=== PATIENT | male | born 1955 | race Caucasian/White ===

== ENCOUNTER 2016-11-22 16:41 | Inpatient (IN) | payer BC, OTHER ==
[2016-11-22] MEDS ORDERED: Aspirin TAB* 325 MG PO ONE (17:15)
[2016-11-22 17:25] LABS: Hematocrit 47 % (42-52); Hemoglobin 15.6 g/dl (14.0-18.0); Mean Corpuscular HGB Conc 33 g/dl (31-36); Mean Corpuscular Hemoglobin 26 pg (27-31); Mean Corpuscular Volume 78 fL (80-94); Mean Platelet Volume 9 um3 (7.4-10.4); Red Blood Count 6.02 10^6/ul (4.0-5.4); Red Cell Distribution Width 14 % (10.5-15); White Blood Count 13.2 10^3/ul (3.5-10.8)
[2016-11-22 17:39] LABS: ALT 11 U/L (7-52); Albumin 3.7 g/dL (3.2-5.2); Alkaline Phosphatase 72 U/L (34-104); BUN/Creatinine Ratio 14.3 (8-20); Blood Urea Nitrogen 39 mg/dL (6-24); CO2 Carbon Dioxide 21 mmol/L (22-32); Calcium 9.5 mg/dL (8.6-10.3); Chloride 98 mmol/L (101-111); EGFR African American 30.7 (>60); EGFR Non-African American 23.9 (>60); Globulin 3.9 g/dL (2-4); Glucose 153 mg/dL (70-100); Sodium 132 mmol/L (133-145); Total Protein 7.6 g/dL (6.4-8.9)
[2016-11-22 17:51] LABS: Anion Gap 13 mmol/L (2-11); Troponin I 0.05 ng/mL (<0.04)
--- NOTE | 2016-11-22 17:52 | RAD ---
Indication: LEFT side weakness since yesterday. Comparison: Report of May 10, 2004. Technique: Upright AP 1735 hours Report: Large body habitus limits image quality. Grossly clear lungs and pleural spaces. Negative for pneumothorax. The heart, pulmonary vasculature, and mediastinal contours are unremarkable. IMPRESSION: No evidence for acute intrathoracic disease.
--- NOTE | 2016-11-22 18:18 | RAD ---
Indication: LEFT side weakness since yesterday. Diabetic. Comparison: No relevant prior exams available on the [facility] [place] PACS for comparison. Technique: Noncontrast CT vertex of skull through foramen magnum. Report: The sulci, ventricles, and basal cisterns are normal for age. Boss matter white matter differentiation is preserved without evidence for edema. No intra or extra axial hemorrhage, mass, or fluid collection detected. Unremarkable orbital contents. Unremarkable calvarium and skull base. Unremarkable scalp. The visualized paranasal sinuses and mastoid air spaces are clear. IMPRESSION: Negative for intracranial hemorrhage or CT stigmata of ischemic stroke. Negative unenhanced head CT.
[2016-11-22 18:23] LABS: Cholesterol 257 mg/dL; HDL Cholesterol 28.4 mg/dL; LDL Cholesterol 183 mg/dL; Triglycerides 229 mg/dL
--- NOTE | 2016-11-22 18:49 | ED ---
Wilfredo Montalvo SooYoung, scribed for Yaw Gold MD on 11/22/16 at 1702 . Neurological HPI - HPI Summary HPI Summary: A 61 y/o M presents to ED with c/o L-sided weakness with possible onset yesterday. Pt states he was able to get dressed OK yesterday, but had difficulty this AM. Denies slurred speech, TOVAR, visual changes. PMHx includes DM , low BP, chronic back pain. Pt is scheduled to see Dr. Garland on December 05. Pt does not take daily aspirin. He is R-hand dominant. - History of Current Complaint Chief Complaint: EDWeakness Stated Complaint: WEAKNESS ON LT SIDE Time Seen by Provider: 11/22/16 16:51 Hx Obtained From: Patient Onset/Duration: Started days ago - yesterday, Still Present Timing: Constant Onset Severity: Moderate Current Severity: Moderate Pain Intensity: 0 Pain Scale Used: 0-10 Numeric Character: Motor Weakness Associated Signs and Symptoms: Positive: Weakness, Nothing - neg: visual changes. Negative: Headache, Impaired Speech - Allergy/Home Medications Allergies/Adverse Reactions: Allergies Allergy/AdvReac Type Severity Reaction Status Date / Time Hydrocodone Allergy Nausea Verified 09/06/16 10:38 Gabapentin [From Neurontin] AdvReac Intermediate Nausea Verified 09/06/16 10:38 Home Medications: Home Medications Atenolol TAB* [Tenormin TAB* 50 MG] 50 mg PO DAILY 11/22/16 [History Confirmed 11/22/16] Clonidine HCl [Clonidine HCl 0.3 MG] 0.3 mg PO BEDTIME 11/22/16 [History Confirmed 11/22/16] Insulin GLARGINE(*) [Lantus(*)] 50 units SUBCUT DAILY 11/22/16 [History Confirmed 11/22/16] Lovastatin(NF) [Mevacor(NF)] 20 mg PO BEDTIME 11/22/16 [History Confirmed ] glipiZIDE TAB* [Glucotrol TAB*] 10 mg PO BID 11/22/16 [History Confirmed ] PMH/Surg Hx/FS Hx/Imm Hx Previously Healthy: No Endocrine/Hematology History: Reports: Hx Diabetes Cardiovascular History: Reports: Hx Cardiomegaly - ENLARGED HEART 2003, ON MEDS , Hx Hypercholesterolemia, Hx Hypertension Denies: Other Cardiovascular Problems/Disorders GI History: Denies: Other GI Disorders Musculoskeletal History: Reports: Hx Back Problems - chronic low back pain Sensory History: Reports: Hx Cataracts - RENE, Hx Contacts or Glasses - READING GLASSES Denies: Hx Hearing Aid Opthamlomology History: Reports: Hx Cataracts - RENE, Hx Contacts or Glasses - READING GLASSES Neurological History: Reports: Other Neuro Impairments/Disorders - PAIN CLINIC PT - Surgical History Hx Anesthesia Reactions: No Infectious Disease History: No Infectious Disease History: Denies: Traveled Outside the [place] in Last 30 Days - Family History Known Family History: Positive: Diabetes, Other - CA - Social History Occupation: Employed Part-time Lives: With Family Alcohol Use: None Hx Substance Use: No Substance Use Type: Reports: None Hx Tobacco Use: Yes Smoking Status (MU): Former Smoker Type: Cigarettes Have You Smoked in the Last Year: No Review of Systems Positive: Other - neg: visual changes Positive: Weakness - L-sided . Negative: Headache, Slurred Speech All Other Systems Reviewed And Are Negative: Yes Physical Exam - Summary Physical Exam Summary: The patient is well-nourished in no acute distress and in no acute pain. The skin is warm and dry and skin color reflects adequate perfusion. HEENT: The head is normocephalic and atraumatic. No facial droop. The pupils are equal and reactive. EOMI. The conjunctivae are clear and without drainage. Nares are patent and without drainage. Mouth reveals moist mucous membranes and the throat is without erythema and exudate. The tongue is midline. The external ears are intact. The ear canals are patent and without drainage. The tympanic membranes are intact. Neck is supple with full range of motion and non-tender. There are no carotid bruits. There is no neck vein distension. Respiratory: Chest is non-tender. Lungs are clear to auscultation and breath sounds are symmetrical and equal. Cardiovascular: Heart is regular rhythm and bradycardic. There is no murmur or rub auscultated. There is no peripheral edema and pulses are symmetrical and equal. Abdomen: The abdomen is obese, soft and non-tender. There are normal bowel sounds heard in all four quadrants and there is no organomegaly palpated. Musculoskeletal: There is no back pain noted. Extremities are non-tender with full range of motion. There is good capillary refill. There is no peripheral edema or calf tenderness elicited. Neurological: Patient is alert and oriented to person, place and time. Cranial nerves II - XII are intact. Babinski sign on L. LUE drifts, unable to do finger to nose. RUE does not drift and performed finger to nose. LLE: Greater drift compared to R, difficulty performing heel to langley. Speech mildly slurred. Psychiatric: The patient has an appropriate affect and does not exhibit any anxiety or depression. Triage Information Reviewed: Yes Vital Signs On Initial Exam: Initial Vitals Temp Pulse Resp BP Pulse Ox 98.0 F 43 18 159/98 98 11/22/16 16:43 11/22/16 16:43 11/22/16 16:43 11/22/16 16:43 11/22/16 16:43 Vital Signs Reviewed: Yes Diagnostics - Vital Signs Vital Signs Temp Pulse Resp BP Pulse Ox 11/22/16 16:47 97.8 F 54 20 159/98 95 11/22/16 16:43 98.0 F 43 18 159/98 98 - Laboratory Lab Results: Lab Results 11/22/16 11/22/16 11/22/16 Range/Units 17:11 17:15 17:15 WBC 13.2 H (3.5-10.8) 10^3/ul RBC 6.02 H (4.0-5.4) 10^6/ul Hgb 15.6 (14.0-18.0) g/dl Hct 47 (42-52) % MCV 78 L (80-94) fL MCH 26 L (27-31) pg MCHC 33 (31-36) g/dl RDW 14 (10.5-15) % Plt Count 244 (150-450) 10^3/ul MPV 9 (7.4-10.4) um3 Neut % (Auto) 73.1 (38-83) % Lymph % (Auto) 17.8 L (25-47) % Iron % (Auto) 7.8 (1-9) % Eos % (Auto) 0.4 (0-6) % Baso % (Auto) 0.9 (0-2) % Absolute Neuts (auto) 9.7 H (1.5-7.7) 10^3/ul Absolute Lymphs (auto) 2.4 (1.0-4.8) 10^3/ul Absolute Monos (auto) 1.0 H (0-0.8) 10^3/ul Absolute Eos (auto) 0.1 (0-0.6) 10^3/ul Absolute Basos (auto) 0.1 (0-0.2) 10^3/ul Absolute Nucleated RBC 0.01 10^3/ul Nucleated RBC % 0.1 INR (Anticoag Therapy) 1.10 (0.89-1.11) Sodium (133-145) mmol/L Potassium Chloride (101-111) mmol/L Carbon Dioxide (22-32) mmol/L Anion Gap (2-11) mmol/L BUN (6-24) mg/dL Creatinine (0.67-1.17) mg/dL Est GFR ( Amer) (>60) Est GFR (Non-Af Amer) (>60) BUN/Creatinine Ratio (8-20) Glucose (70-100) mg/dL POC Glucose (mg/dL) 143 H (74-106) mg/dL Lactic Acid (0.5-2.0) mmol/L Calcium (8.6-10.3) mg/dL Total Bilirubin (0.2-1.0) mg/dL AST ALT (7-52) U/L Alkaline Phosphatase (34-104) U/L Troponin I (<0.04) ng/mL Total Protein (6.4-8.9) g/dL Albumin (3.2-5.2) g/dL Globulin (2-4) g/dL Albumin/Globulin Ratio (1-3) Triglycerides mg/dL Cholesterol mg/dL LDL Cholesterol mg/dL HDL Cholesterol mg/dL 11/22/16 11/22/16 Range/Units 17:15 17:15 WBC (3.5-10.8) 10^3/ul RBC (4.0-5.4) 10^6/ul Hgb (14.0-18.0) g/dl Hct (42-52) % MCV (80-94) fL MCH (27-31) pg MCHC (31-36) g/dl RDW (10.5-15) % Plt Count (150-450) 10^3/ul MPV (7.4-10.4) um3 Neut % (Auto) (38-83) % Lymph % (Auto) (25-47) % Iron % (Auto) (1-9) % Eos % (Auto) (0-6) % Baso % (Auto) (0-2) % Absolute Neuts (auto) (1.5-7.7) 10^3/ul Absolute Lymphs (auto) (1.0-4.8) 10^3/ul Absolute Monos (auto) (0-0.8) 10^3/ul Absolute Eos (auto) (0-0.6) 10^3/ul Absolute Basos (auto) (0-0.2) 10^3/ul Absolute Nucleated RBC 10^3/ul Nucleated RBC % INR (Anticoag Therapy) (0.89-1.11) Sodium 132 L (133-145) mmol/L Potassium TNP Chloride 98 L (101-111) mmol/L Carbon Dioxide 21 L (22-32) mmol/L Anion Gap 13 H (2-11) mmol/L BUN 39 H (6-24) mg/dL Creatinine 2.72 H (0.67-1.17) mg/dL Est GFR ( Amer) 30.7 (>60) Est GFR (Non-Af Amer) 23.9 (>60) BUN/Creatinine Ratio 14.3 (8-20) Glucose 153 H (70-100) mg/dL POC Glucose (mg/dL) (74-106) mg/dL Lactic Acid 1.3 (0.5-2.0) mmol/L Calcium 9.5 (8.6-10.3) mg/dL Total Bilirubin 0.80 (0.2-1.0) mg/dL AST TNP ALT 11 (7-52) U/L Alkaline Phosphatase 72 (34-104) U/L Troponin I 0.05 H* (<0.04) ng/mL Total Protein 7.6 (6.4-8.9) g/dL Albumin 3.7 (3.2-5.2) g/dL Globulin 3.9 (2-4) g/dL Albumin/Globulin Ratio 0.9 L (1-3) Triglycerides 229 mg/dL Cholesterol 257 mg/dL LDL Cholesterol 183 mg/dL HDL Cholesterol 28.4 mg/dL Result Diagrams: 11/22/16 17:15 11/22/16 17:15 Lab Statement: Any lab studies that have been ordered have been reviewed, and results considered in the medical decision making process. - Radiology CXR Xray Interpretation: No Acute Changes - IMPRESSION: No evidence of acute intrathoracic dz Radiology Interpretation Completed By: Radiologist - CT BRAIN CT Interpretation: No Acute Changes - IMPRESSION: Negative for intracranial hemorrhage or CT stigmata of ischemic stroke. Negative unenhanced head CT. CT Interpretation Completed By: Radiologist - EKG 1 EKG Rhythm: Sinus Bradycardia ST Segment: Non-Specific - ST changes in V5 and V6 Ectopy: PVCs EKG Interpretation: T-wave inversions in V2, V3, V4 NIH Scale - NIH Scale Level of Consciousness: Alert/Keenly Responsive Ask Patient the Month and His/Her Age: Both Correct Ask Pt to Open/Close Eyes and Direct Sales Professional/Release Non-Paretic Hand: Both Correctly Best Gaze (Only Horizontal Eye Movement): Normal Visual Field Testing: No Visual Loss Facial Paresis-Pt to Smile & Close Eyes or Grimace Symmetry: Normal/Symmetrical Motor Function - Right Arm: No Drift-Holds 10 Seconds Motor Function - Left Arm: Drifts LT 10 seconds Motor Function - Right Leg: No Drift-Holds 10 Seconds Motor Function - Left Leg: Drifts LT 10 seconds Limb Ataxia-Must be out of Proportion to Weakness Present: Present in Two Limbs Sensory (Use Pinprick to Test Arms/Legs/Trunk/Face): Normal Best Language (Describe Picture, Name Items): Some Loss Dysarthria (Read Several Words): Slurs Some Words Extinction and Inattention: No Abnormality Total Score: 6 Re-Evaluation - Re-Evaluation 1 Re-Evaluation Time: 18:25 Change: Unchanged Comment: Discussing diagnostic results with pt. Suggesting admission, pt is agreeable. Course/Dx - Course Course Of Treatment: Pt is a 61 y/o M presenting with L-sided weakness with possible onset yesterday. Pt states he was able to get dressed OK yesterday, but had difficulty this AM. Denies slurred speech, TOVAR, visual changes. PMHx includes DM, low BP, chronic back pain. Pt is scheduled to see Dr. Garland on December 05. Pt does not take daily aspirin. He is R-hand dominant. Trop is 0.05. CXR shows no acute findings. Brain CT shows no acute findings. Discussed with Dr. Valle, recommends admission. Spoke to Dr. Simpson, hospitalist, will admit pt. - Differential Dx Differential Diagnoses Neuro: Positive: Cerebrovascular Accident, Hemorrhage, Hypertension, Transient Ischemic Attack, Other - renal failure, - Diagnoses Provider Diagnoses: Right-sided cerebrovascular accident (CVA), Renal failure, Bradycardia - Physician Notifications Discussed Care Of Patient With: Froylan Valle - neuro Time Discussed With Above Provider: 18:21 Instructed by Provider To: Other - recommends observation - Critical Care Time Critical Care Time: 30-74 min - 30 minutes Discharge - Discharge Plan Condition: Stable Disposition: ADMITTED TO [facility] Referrals: Shimon Zhong MD [Primary Care Provider] - Consult Consult: 1830: Dr. Simpson, hospitalist Will admit. The documentation as recorded by the Wilfredo jacobsen SooYoung accurately reflects the service I personally performed and the decisions made by me, Yaw Gold MD.
[2016-11-22] MEDS ORDERED: Dextrose 50% Syringe 50 ML* 25 GM/50 ML SYRINGE IV PUSH PRN (19:13)
--- NOTE | 2016-11-22 20:31 | RAD ---
INDICATION: TIA, LEFT-sided weakness. COMPARISON: No relevant prior exams available on the [facility] [place] PACS for comparison. TECHNIQUE: Bilateral carotid duplex scan. Stenosis estimations reflect velocity criteria that have been correlated to angiographic stenosis calculations based on distal internal carotid diameter. REPORT: RIGHT ICA: 64 cm/s peak systolic 19 cm/s end diastolic CCA: 77 cm/s peak systolic ICA/CCA peak systolic ratio: 0.83 The right common carotid artery and internal carotid artery are without evidence for significant atherosclerotic disease. Normal spectral wave forms are present throughout. Antegrade flow in the right vertebral artery. Increased peak systolic velocity at the RIGHT subclavian artery measuring 242 cm/s compared with 94 cm/s on the contralateral side suggesting a proximal subclavian stenosis. LEFT ICA: 57 cm/s peak systolic 19 cm/s end diastolic CCA: 60 cm/s peak systolic ICA/CCA peak systolic ratio: 0.96 The left common carotid artery and internal carotid artery are without evidence for significant atherosclerotic disease. Normal spectral wave forms are present throughout. Antegrade flow in the left vertebral artery. IMPRESSION: 1. No evidence for carotid stenosis. 2. Probable proximal RIGHT subclavian stenosis. Normal direction flow documented in the RIGHT vertebral artery without evidence for subclavian steal. CPT II Codes: 3100F
[2016-11-22] MEDS ORDERED: Atorvastatin* 10 MG TAB PO SCH (21:00)
[2016-11-22] MEDS ORDERED: cloNIDine TAB* 0.1 MG PO SCH (21:00)
[2016-11-22] MEDS ORDERED: NS 0.9% 1000 ML* 1,000 ML IV SCH (21:30)
--- NOTE | 2016-11-22 21:36 | RAD ---
Indication: LEFT side weakness which began yesterday. Comparison: Head CT of the same date. Technique: [employer] 1.5 Sameera [id number] with GEM suite. MRI brain without contrast. Report: 1.5 cm AP by 1.0 cm transverse region of restricted diffusion with corresponding decreased signal on ADC map within the RIGHT aspect of the midbrain and jermaine junction. Mild associated T2 hyperintensity and mass effect with enlargement compared with the contralateral side without effacement of the perimesencephalic cistern. Negative for additional foci of restricted diffusion. Susceptibility series is negative for stigmata of hemosiderin deposition to indicate previous hemorrhage. Unremarkable cerebral sulci, ventricles, and basal cisterns for age. Preserved major intracranial flow-voids. Unremarkable orbital contents. No suspicious calvarial or skull base lesion evident. IMPRESSION: The constellation of findings is most consistent with acute or subacute ischemic infarct involving the RIGHT aspect of the midbrain jermaine junction corresponding with blood supplied by pontine arteries from the basilar artery. Only mild mass effect without effacement of the surrounding basal cisterns. Results discussed with SALENA Noland 11/22/2016 9:31 PM EDT
[2016-11-22] MEDS: Insulin LISPRO* 1 UNITS UNIT SUBCUT SCH (22:52)
[2016-11-22] MEDS: Heparin VIAL(*) 5000 UNITS/ML VIAL (FIVE THOUSAND) SUBCUT SCH (23:07)
[2016-11-22] MEDS ORDERED: Atorvastatin* 80 MG TAB PO SCH (23:11)
[2016-11-23] MEDS: Heparin VIAL(*) 5000 UNITS/ML VIAL (FIVE THOUSAND) SUBCUT SCH ×3 (05:24→21:28)
[2016-11-23 07:15] LABS: BUN/Creatinine Ratio 15.5 (8-20); Calcium 8.9 mg/dL (8.6-10.3); EGFR African American 30.8 (>60); Potassium 2.8 mmol/L (3.5-5.0)
[2016-11-23 07:33] LABS: Troponin I 0.05 ng/mL (<0.04)
[2016-11-23] MEDS: Insulin LISPRO* 1 UNITS UNIT SUBCUT SCH ×4 (07:53→21:29)
--- NOTE | 2016-11-23 08:15 | HP ---
CC: Dr. Shimon Zhong; Primary Care Physician * HISTORY AND PHYSICAL: DATE OF ADMISSION: 11/22/16 CHIEF COMPLAINT: "I am weak." HISTORY OF PRESENT ILLNESS: The patient is a 61-year-old gentleman who came to the ER today after his son came home and found him weak and looking like he had a left facial droop. Apparently, the patient started feeling weak sometime during the day yesterday and became progressively worse today. He started feeling weak in his entire left side, especially his left arm and his left leg. His son thought he sounded drunk when he spoke to him, but he denies any trouble with word finding. He denies any visual disturbances. He does not feel any improvement since he arrived at the ER. He also admits that his diabetes is poorly controlled in general. He used to have the hemoglobin A1c of 14, now it has been 9.5 for some time now. PAST MEDICAL HISTORY: Significant for diabetes mellitus, type 2; chronic back pain; hypertension; hyperlipidemia; heart murmur as a child; questionable history of SC as the patient denies, but it is in his past medical history; chronic kidney disease. CURRENT MEDICATIONS: As follows: 1. Lovastatin 20 mg at bedtime. 2. Clonidine 0.3 mg at bedtime. 3. Hydrochlorothiazide 25 mg daily. 4. Atenolol 50 mg daily. 5. Glipizide 10 mg twice a day. 6. Lantus insulin 50 units subcu daily. ALLERGIES: He has allergy/adverse reactions to HYDROCODONE and GABAPENTIN. FAMILY HISTORY: Mother at 62 of cerebral aneurysm. Father at 59 of chronic kidney disease. SOCIAL HISTORY: He quit tobacco 20 or 30 years ago. No alcohol or recreational drug use. 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 He is . He has 2 children. His son, Cm Summers, is his healthcare proxy. REVIEW OF SYSTEMS: A 14-point review of systems was completed with the patient. All pertinent positives and negatives are in the history of present illness, otherwise it is negative. PHYSICAL EXAMINATION GENERAL: Pleasant gentleman, lying in bed, in no acute distress. VITAL SIGNS: Temperature 98.1 degrees, heart rate 67 beats per minute, respiratory rate 16 breaths per minute, pulse ox 97%, blood pressure 181/88. HEENT: Normocephalic, atraumatic. Pupils equal, round, and reactive to light. Moist mucous membranes. NECK: Supple. No JVD, bruits, palpable thyroid, or lymphadenopathy. CHEST: Clear to auscultation and percussion bilaterally. CARDIOVASCULAR: S1, S2 appreciated. Regular rate and rhythm. ABDOMEN: Positive bowel sounds in all 4 quadrants. Soft, nontender, nondistended. EXTREMITIES: No cyanosis, clubbing, or edema. +2 peripheral pulses bilaterally. NEURO: He is alert and oriented x3. He has got poor [id number] on the left side. He has got 3/5 motor strength on the left side, 5/5 on the right side. He has a slight left facial droop. He has got pronator drift on the left side. DIAGNOSTIC STUDIES: His EKG shows sinus bradycardia, 52 beats per minute, PVCs , normal axis, flipped T's throughout. Brain CT was interpreted by Radiology as negative for intracranial hemorrhage or CT stigmata of ischemic stroke, negative enhanced CT. Chest x-ray was interpreted by Radiology as no evidence for acute intrathoracic disease. Carotid Doppler shows no evidence for carotid stenosis, probably proximal right subclavian vein stenosis, normal direction of flow documented in the right vertebral artery without evidence for subclavian steal. Brain MRI: The constellation of findings most consistent with acute or subacute ischemic stroke involving the right aspect of the midbrain portion corresponding with blood supplied by the pontine arteries from basilar artery, only mid mass effect without effacement of surrounding basal cisterns. ASSESSMENT AND PLAN: 1. Cerebrovascular accident. The patient's physical exam, history, and now MRI are all consistent with cerebrovascular accident. The patient is on aspirin a day. Continue statin. Check lipid profile. Check hemoglobin A1c in the morning. We will leave systolic blood pressure greater than 180. Only treat if out of the case. Neurology to see in the a.m. Get PT, OT consult, swallow evaluation as well. 2. Hypertension. See above. We will keep blood pressure high for now with ischemic stroke. 3. Hyperlipidemia. See above. We will check lipid profile and continue statin. 4. Diabetes mellitus. As above. We will continue Lantus fingersticks with sliding scale and check hemoglobin A1c. 5. DVT prophylaxis. Heparin subcu. 6. FEN. N.p.o. and swallow study. 7. The patient is a full code. TIME SPENT: Over 80 minutes was spent on this H and P, more than 45 minutes of which was spent in direct [id number] contact with the patient in evaluation, physical exam, counseling, and coordination of care. [id number] #: [id number]
[2016-11-23] MEDS ORDERED: Atenolol TAB* 50 MG PO SCH (09:00)
[2016-11-23] MEDS ORDERED: Hydrochlorothiazide TAB* 25 MG PO SCH (09:00)
[2016-11-23] MEDS: Insulin GLARGINE(*) 1 UNITS UNIT SUBCUT SCH (09:39)
[2016-11-23] MEDS: Aspirin EC TAB* 325 MG PO SCH (09:40)
[2016-11-23] MEDS: KCL 20 MEQ/100 ML IVPREMIX* 20 MEQ/100 ML BAG IV SCH ×3 (09:40→15:58)
--- NOTE | 2016-11-23 09:55 | PN ---
Subjective Date of Service: 11/23/16 Interval History: Pt is feeling well. He states he is still feeling weak in the L UE. He states OT and speech have been in to see him already this AM. No SOB, CP or any other symptoms. Objective Active Medications: Aspirin (Ecotrin Ec Tab*) 325 mg PO DAILY [facility] Last Admin: 11/23/16 09:40 Dose: 325 mg Atorvastatin Calcium (Lipitor*) 80 mg PO BEDTIME [facility] Dextrose (D50w Syringe 50 Ml*) 12.5 gm IV PUSH .FOR FS < 60 - SS PRN PRN Reason: FS < 60 Heparin Sodium (Porcine) (Heparin Vial(*)) 5,000 units SUBCUT Q8HR [facility] Last Admin: 11/23/16 05:24 Dose: 5,000 units Potassium Chloride (Potassium Chloride 20 Meq/100 Ml Ivpremix*) 20 meq in 100 mls @ 50 mls/hr IV Q2H JOSEY Stop: 11/23/16 14:59 Last Admin: 11/23/16 09:40 Dose: 50 mls/hr Insulin Glargine (Lantus(*)) 50 units SUBCUT DAILY [facility] Last Admin: 11/23/16 09:39 Dose: 50 units Insulin Human Lispro (Humalog*) 0 units SUBCUT ACHS [facility] PRN Reason: Protocol Last Admin: 11/23/16 07:53 Dose: Not Given Vital Signs 11/22/16 11/22/16 11/22/16 20:00 21:45 23:40 Temperature 98.1 F 98.5 F Pulse Rate 42 67 48 Respiratory 16 20 Rate Blood Pressure 181/88 151/93 (mmHg) O2 Sat by Pulse 93 97 98 Oximetry 11/23/16 11/23/16 03:26 08:10 Temperature 97.5 F 98.4 F Pulse Rate 51 56 Respiratory 20 16 Rate Blood Pressure 177/92 184/103 (mmHg) O2 Sat by Pulse 96 97 Oximetry Oxygen Devices in Use Now: None Appearance: Middle aged male sitting up in bed, NAD Eyes: No Scleral Icterus Ears/Nose/Mouth/Throat: Mucous Membranes Moist Respiratory: Symmetrical Chest Expansion and Respiratory Effort, Clear to Auscultation Cardiovascular: NL Sounds; No Murmurs; No JVD, No Edema, - - bradycardic Abdominal: NL Sounds; No Tenderness; No Distention Extremities: No Clubbing, Cyanosis Skin: No Rash or Ulcers, No Nodules or Sclerosis Neurological: Alert and Oriented x 3, - - L UE roller hand 4/5, biceps 4/5, triceps 4-/ 5, L LE plantar/dorsiflexion 4/5 hip flexor 4-/5 Result Diagrams: 11/22/16 17:15 11/23/16 05:59 Additional Lab and Data: Lab Results 11/22/16 11/22/16 11/22/16 Range/Units 17:11 17:15 17:15 WBC 13.2 H (3.5-10.8) 10^3/ul RBC 6.02 H (4.0-5.4) 10^6/ul Hgb 15.6 (14.0-18.0) g/dl Hct 47 (42-52) % MCV 78 L (80-94) fL MCH 26 L (27-31) pg MCHC 33 (31-36) g/dl RDW 14 (10.5-15) % Plt Count 244 (150-450) 10^3/ul MPV 9 (7.4-10.4) um3 Neut % (Auto) 73.1 (38-83) % Lymph % (Auto) 17.8 L (25-47) % Cedar % (Auto) 7.8 (1-9) % Eos % (Auto) 0.4 (0-6) % Baso % (Auto) 0.9 (0-2) % Absolute Neuts (auto) 9.7 H (1.5-7.7) 10^3/ul Absolute Lymphs (auto) 2.4 (1.0-4.8) 10^3/ul Absolute Monos (auto) 1.0 H (0-0.8) 10^3/ul Absolute Eos (auto) 0.1 (0-0.6) 10^3/ul Absolute Basos (auto) 0.1 (0-0.2) 10^3/ul Absolute Nucleated RBC 0.01 10^3/ul Nucleated RBC % 0.1 INR (Anticoag Therapy) 1.10 (0.89-1.11) Sodium (133-145) mmol/L Potassium Chloride (101-111) mmol/L Carbon Dioxide (22-32) mmol/L Anion Gap (2-11) mmol/L BUN (6-24) mg/dL Creatinine (0.67-1.17) mg/dL Est GFR ( Amer) (>60) Est GFR (Non-Af Amer) (>60) BUN/Creatinine Ratio (8-20) Glucose (70-100) mg/dL POC Glucose (mg/dL) 143 H (74-106) mg/dL Lactic Acid (0.5-2.0) mmol/L Calcium (8.6-10.3) mg/dL Total Bilirubin (0.2-1.0) mg/dL AST ALT (7-52) U/L Alkaline Phosphatase (34-104) U/L Troponin I (<0.04) ng/mL Total Protein (6.4-8.9) g/dL Albumin (3.2-5.2) g/dL Globulin (2-4) g/dL Albumin/Globulin Ratio (1-3) Triglycerides mg/dL Cholesterol mg/dL LDL Cholesterol mg/dL HDL Cholesterol mg/dL 11/22/16 11/22/16 Range/Units 17:15 17:15 WBC (3.5-10.8) 10^3/ul RBC (4.0-5.4) 10^6/ul Hgb (14.0-18.0) g/dl Hct (42-52) % MCV (80-94) fL MCH (27-31) pg MCHC (31-36) g/dl RDW (10.5-15) % Plt Count (150-450) 10^3/ul MPV (7.4-10.4) um3 Neut % (Auto) (38-83) % Lymph % (Auto) (25-47) % Cedar % (Auto) (1-9) % Eos % (Auto) (0-6) % Baso % (Auto) (0-2) % Absolute Neuts (auto) (1.5-7.7) 10^3/ul Absolute Lymphs (auto) (1.0-4.8) 10^3/ul Absolute Monos (auto) (0-0.8) 10^3/ul Absolute Eos (auto) (0-0.6) 10^3/ul Absolute Basos (auto) (0-0.2) 10^3/ul Absolute Nucleated RBC 10^3/ul Nucleated RBC % INR (Anticoag Therapy) (0.89-1.11) Sodium 132 L (133-145) mmol/L Potassium TNP Chloride 98 L (101-111) mmol/L Carbon Dioxide 21 L (22-32) mmol/L Anion Gap 13 H (2-11) mmol/L BUN 39 H (6-24) mg/dL Creatinine 2.72 H (0.67-1.17) mg/dL Est GFR ( Amer) 30.7 (>60) Est GFR (Non-Af Amer) 23.9 (>60) BUN/Creatinine Ratio 14.3 (8-20) Glucose 153 H (70-100) mg/dL POC Glucose (mg/dL) (74-106) mg/dL Lactic Acid 1.3 (0.5-2.0) mmol/L Calcium 9.5 (8.6-10.3) mg/dL Total Bilirubin 0.80 (0.2-1.0) mg/dL AST TNP ALT 11 (7-52) U/L Alkaline Phosphatase 72 (34-104) U/L Troponin I 0.05 H* (<0.04) ng/mL Total Protein 7.6 (6.4-8.9) g/dL Albumin 3.7 (3.2-5.2) g/dL Globulin 3.9 (2-4) g/dL Albumin/Globulin Ratio 0.9 L (1-3) Triglycerides 229 mg/dL Cholesterol 257 mg/dL LDL Cholesterol 183 mg/dL HDL Cholesterol 28.4 mg/dL Assess/Plan/Problems-Billing Mr Summers is a 61 yo M who has a h/o hyperlipidemia, uncontrolled type II DM , HTN and CKD who presented to the ER with c/o L UE/LE weakness and L facial droop. - Patient Problems (1) Right pontine CVA Current Visit: Yes Status: Acute Code(s): I63.50 - CEREB INFRC DUE TO UNSP OCCLS OR STENOS OF UNSP CEREB ARTERY SNOMED Code(s): 903164121 Comment: The patient was found to have an acute to subacute midbrain jermaine junction CVA. He reports some improvement in symptoms but still has deficits. OT has seen the patient-await report. PT to see pt. Speech has recommended nectar thick liquids. Continue lipitor 80mg qHS and add zetia 10mg daily. Continue ASA 325mg daily (does not appear he was on prior to admission). Neurology consult pending for today. Monitor on tele for evidence of afib. (2) Type II diabetes mellitus Current Visit: Yes Status: Acute Comment: A1c is pending but historically he has had very poor control of his DM. Continue lantus 50 units SQ daily and hold glipizide for now. (3) HLD (hyperlipidemia) Current Visit: Yes Status: Acute Code(s): E78.5 - HYPERLIPIDEMIA, UNSPECIFIED SNOMED Code(s): 43894252 Comment: As above, continue lipitor and add zetia. (4) HTN (hypertension) Current Visit: Yes Status: Acute Code(s): I10 - ESSENTIAL (PRIMARY) HYPERTENSION SNOMED Code(s): 32255502 Comment: Allowing for permissive HTN in the setting of acute CVA. Hold home meds for now but resume if SBP >210 or DBP >110. (5) DVT prophylaxis Current Visit: Yes Status: Acute Code(s): PGC3909 - SNOMED Code(s): 150470016 Comment: SQ heparin (6) Full code status Current Visit: Yes Status: Acute Code(s): Z78.9 - OTHER SPECIFIED HEALTH STATUS SNOMED Code(s): 433519756
[2016-11-23] MEDS: Hydrochlorothiazide TAB* 25 MG PO SCH (13:06)
[2016-11-23] MEDS ORDERED: Perflutren Lipid Microsphere* 3 ML VIAL ONE (14:47)
[2016-11-23 16:04] LABS: Urine Bacteria Absent (Absent); Urine Bilirubin Negative (Negative); Urine Glucose 2+(150 mg/dL) (Negative); Urine Nitrite Negative (Negative)
--- NOTE | 2016-11-23 16:21 | ECHO ---
Amended Report Patient: YAMIL LE [facility] Rec#: [id number] : 1955 Date: 11/23/2016 Age: 61y Height: 165.1 cm / 65.0 in Weight: 108.86 kg / 239.9 lbs Sex: M BSA: 2.14 Room#: [facility] Admit Date#: 11/23/2016 Type: Inpatient Referring: Caroline Rashid DO Reading: Bryant Winter MD Behavioral Health Case Manager: Giselle Candelaria,RAYMONDCS,RDMS CC: Shimon Zhong MD Transthoracic Echocardiogram Indication: CVA, TIA BP: 214/74 HR: 52 Rhythm: Bradycardia Findings History: DM, HTN, HLD, old [place], former smoker Technical Comments: The study is technically limited due to poor acoustic windows. Completed 1530 Left Ventricle: The left ventricular chamber size is normal. Moderate concentric left ventricular hypertrophy is observed. There is increased basal septal hypertrophy noted without evidence of an increased gradient across the left ventricular outflow tract. The sigmoid septum measures up to 2 cm. The estimated ejection fraction is 55-60%. Abnormal left ventricular diastolic filling is observed, consistent with impaired relaxation. Left Atrium: The left atrium is moderately dilated. Right Ventricle: The right ventricular chamber size and systolic function are within normal limits. The right ventricle wall thickness is mildly increased. Right Atrium: The right atrium is not well visualized. Aortic Valve: The aortic valve leaflets are mildly thickened. There is aortic annular calcification. There is no evidence of aortic regurgitation. There is no evidence of aortic stenosis. Mitral Valve: There is mitral annular calcification. The mitral valve leaflets are mildly thickened. There is no evidence of mitral regurgitation. There is no evidence of mitral stenosis. Tricuspid Valve: The tricuspid valve leaflets are normal. There is trace tricuspid regurgitation. Unable to estimate the right ventricular systolic pressure. Pulmonic Valve: There is no evidence of pulmonic valve thickening. There is a trace pulmonic regurgitation. Pericardium: There is no significant pericardial effusion. Aorta: There is mild dilatation of the ascending aorta. The aortic arch is not well visualized. There is no dilation of the aortic root. Pulmonary Artery: The main pulmonary artery is not well visualized. Venous: The inferior vena cava is not visualized. Contrast: Definity was used to optimize study. A total of 3 ml was used Conclusions The study is technically limited due to poor acoustic windows. Moderate concentric left ventricular hypertrophy is observed. There is increased basal septal hypertrophy noted without evidence of an increased gradient across the left ventricular outflow tract. The sigmoid septum measures up to 2 cm. The estimated ejection fraction is 55-60%. Abnormal left ventricular diastolic filling is observed, consistent with impaired relaxation. The left atrium is moderately dilated. The right ventricle wall thickness is mildly increased. There is mild dilatation of the ascending aorta. Contrast enhancement used during the study. The LVH has progressed from mild in 2003. Consider a transesophageal echocardiogram if there is a high index of suspicion for a cardiac source of embolism. Measurements Name Value Normal Range RVIDd (AP) 2D 2.4 cm (0.9 - 2.6) IVSd (2D) 2 cm (0.6 - 1) LVPWd (2D) 1.5 cm (0.6 - 1) LVIDd (2D) 4.1 cm (3.6 - 5.4) LVIDs (2D) 2.7 cm - LV FS (2D) 33 % (25 - 45) Aortic Annulus 2.4 cm (1.4 - 2.6) Ao root diameter (2D) 3.2 cm (2.1 - 3.5) Ascending Ao 3.6 cm (2.1 - 3.4) LAd ISD 4CH 6.4 cm (2.9 - 5.3) LA ISD 4CH W 5.1 cm (2.5 - 4.5) Name Value Normal Range LA ESV SP 4CH (A/L) 94.95 ml - LA ESV SP 2CH (A/L) 58.78 ml - LA ESV BP (A/L) 84.36 ml - LA ESV BP (A/L) index 39 ml/m2 - LA ESV SP 4CH (MOD) 91.09 ml - LA ESV SP 2CH (MOD) 57 ml - Name Value Normal Range MV E-wave Vmax 0.5 m/sec - MV deceleration time 163 msec - MV A-wave Vmax 0.8 m/sec - MV E:A ratio 0.6 ratio - LV septal e' Vmax 0.04 m/sec - LV lateral e' Vmax 0.02 m/sec - LV E:e' septal ratio 12.5 ratio - LV E:e' lateral ratio 25 ratio - Name Value Normal Range AV Vmax 1.6 m/sec - AV VTI 35 cm - AV peak gradient 10 mmHg - AV mean gradient 5.8 mmHg - LVOT Vmax 1 m/sec - LVOT VTI 26.2 cm - LVOT peak gradient 4 mmHg - LVOT mean gradient 2.5 mmHg - ASHELY Vmax 0.9 m/sec - Name Value Normal Range RAP 8 mmHg - Name Value Normal Range PV Vmax 1 m/sec - PV peak gradient 4.3 mmHg -
--- NOTE | 2016-11-23 18:10 | RAD ---
Indication: Ischemic stroke at the RIGHT midbrain jermaine junction documented on November 22, 2016. Weakness, LEFT facial droop, LEFT-sided numbness. Comparison: November 22, 2016 MRI brain. Technique: [place] 1.5 Sameera [id number] with GEM suite. MR angiography 3-D [id number] data was obtained with rotational display of the [place] and posterior fossa arteries. Report: Mild LEFT vertebral artery dominance with both vertebral arteries contributing to the basilar artery. Negative for occlusion or appreciable stenosis at the basilar artery. No suspicious finding at the faintly partially visualized cerebellar artery origins. Patent bilateral posterior cerebral arteries are supplied primarily by the posterior circulation with normal variant hypoplastic bilaterally posterior communicating arteries. Unremarkable RIGHT intracranial carotid artery as well as the RIGHT M1 and M2 middle cerebral artery segments and the RIGHT A1 and A2 anterior cerebral artery segments. There is decreased flow at the cephalad portion of the LEFT carotid siphon and supraclinoid intracranial internal carotid artery as well as the M1 segment of the LEFT middle cerebral artery. Unremarkable M2 segments of the LEFT middle cerebral artery. Flow documented in the diminutive diameter 81 segment of the LEFT anterior cerebral artery. Unremarkable LEFT A2 segment. No intracranial aneurysms evident. IMPRESSION: 1. Negative for occlusion or appreciable stenosis at the basilar artery. 2. The constellation of findings is concerning for hemodynamic significant stenosis at the cephalad portion of the LEFT carotid siphon through the M1 segment of the LEFT middle cerebral artery and A1 segment of the anterior cerebral artery. Short segment hemodynamic significant stenosis at the LEFT carotid siphon or longer segment stenosis should be considered. Consider CT angiogram for further assessment if clinically feasible.
[2016-11-23] MEDS: Clopidogrel TAB* 75 MG PO SCH (18:37)
--- NOTE | 2016-11-23 20:06 | CONS ---
CONSULTATION REPORT: DATE OF CONSULT: 11/23/16 PATIENT OF: Dr. Rashid. HISTORY OF PRESENT ILLNESS: This is a 61-year-old man who presented yesterday with a history that began the day before, of left facial droop, left arm and leg weakness with some slurred speech, but no aphasia. There is no visual disturbance, no headache. He is somewhat better today, but still weak on the left side. He has had no prior stroke. PAST MEDICAL HISTORY: Significant for hypertension, poorly controlled type 2 diabetes, hyperlipidemia, possible history of [place] in the past, and chronic kidney disease. He has also had chronic back pain. MEDICINES AT HOME: Include: 1. Lovastatin 20 mg daily. 2. Clonidine 0.3 daily. 3. Hydrochlorothiazide 25 mg daily. 4. Atenolol 50 daily. 5. Glipizide 10 mg twice a day. 6. Lantus insulin 50 units subcu daily. ALLERGIES: He is allergic to HYDROCODONE and GABAPENTIN. FAMILY HISTORY: His mother at 62 of cerebral aneurysm. Father at 59 of chronic kidney disease. SOCIAL HISTORY: He quit smoking 20 to 30 years ago. He does not drink or use drugs. 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 He is and has 2 children. REVIEW OF SYSTEMS: Negative in all 14 spheres other than the HPI, except he is a heavy snorer. PHYSICAL EXAMINATION: On exam, temperature 98.6, pulse 54, respiratory rate 18 , blood pressure 214/74. He is alert and oriented with normal speech and comprehension. Cranial nerves II through XII were intact, other than slight left facial weakness. Fundi showed sharp discs. Motor exam revealed normal tone and strength on the right side. On the left side, strength was 4/5 in arm and leg with a pronator drift and fine motor was decreased in the left side. He had decreased sensation to touch in his feet compared to knees as well as vibratory loss there. Reflexes were 1. Chest: Clear. Cardiovascular: Regular rate and rhythm. Abdomen is soft with positive bowel sounds. He was obese. DIAGNOSTIC STUDIES: I reviewed his MRI scan, which showed a right pontine acute /subacute stroke. His carotid Doppler showed no carotid stenosis, probable proximal right subclavian stenosis with normal flow direction in the right vertebral artery without evidence of subclavian steal. He has no history of atrial fibrillation. He had some sinus bradycardia. LABORATORY DATA: Includes CMP showing potassium 2.8, BUN today was 42, creatinine 2.7 essentially the same as yesterday. His glucose is , it had been 153. His hemoglobin A1c was 9.3. Troponin 0.05. Normal liver function tests. His LDL was 163, triglycerides were 220. INR 1.1. White count 13.2, hematocrit 47, platelets 244,000. IMPRESSION: Discussed with Mr. Summers that he has had a right pontine stroke and that was the explanation of his symptoms. He has multiple risk factors including his diabetes, hypertension, hyperlipidemia and I emphasized dietary improvement and weight loss impact many of these symptoms. He also needs a sleep study to rule out sleep apnea, which could also contribute to his risk of further cardiovascular disease and stroke. He should be on an antiplatelet therapy and aspirin 325 mg daily as appropriate. He has been put on Lipitor 80 mg and that is appropriate for his quite high LDL. We will be getting an MRA of head and neck without contrast given his kidney disease and this will help assess his basilar artery. There would be no intervention needed at this point given that his symptoms have been there for a couple of days, but if he has significant basilar stenosis, it would be good to know depending on what his symptoms are in the future and how we would treat him. I have also discussed with him at length that if he has further stroke-like symptoms, he needs to come to the ER as an acute emergency with time being a critical factor. Thank you for sharing his case. [id number]/[facility] #: [id number] TIFFANI
[2016-11-24] MEDS: Heparin VIAL(*) 5000 UNITS/ML VIAL (FIVE THOUSAND) SUBCUT SCH ×2 (06:05→13:16)
[2016-11-24] MEDS: Insulin LISPRO* 1 UNITS UNIT SUBCUT SCH ×2 (07:59→12:09)
[2016-11-24] MEDS: Clopidogrel TAB* 75 MG PO SCH (08:55)
[2016-11-24] MEDS: Aspirin EC TAB* 325 MG PO SCH (08:55)
[2016-11-24] MEDS: Insulin GLARGINE(*) 1 UNITS UNIT SUBCUT SCH (08:55)
[2016-11-24] MEDS ORDERED: Pneumococcal Vac Polyvalent* 0.5 ML VIAL IM ONE (09:00)
[2016-11-24] MEDS: Hydrochlorothiazide TAB* 25 MG PO SCH (09:12)
--- NOTE | 2016-11-24 11:02 | PN ---
Progress Note - Progress Note Date of Service: 11/24/16 SOAP: Neurology progress note Date of service: 11/24/16 Subjective: No acute events overnight. The patient still feels weak on the left side, stable with no improvement or worsening. Objective: Vital Signs Temp Pulse Resp BP Pulse Ox 98.2 F 40 18 168/76 98 11/24/16 07:40 11/24/16 07:40 11/24/16 08:00 11/24/16 08:54 11/24/16 07:40 Current Medications Aspirin (Ecotrin Ec Tab*) 325 mg PO DAILY [facility] Last Admin: 11/24/16 08:55 Dose: 325 mg Atorvastatin Calcium (Lipitor*) 80 mg PO BEDTIME JOSEY Last Admin: 11/23/16 21:29 Dose: 80 mg Clopidogrel Bisulfate (Plavix Tab*) 75 mg PO DAILY [facility] Last Admin: 11/24/16 08:55 Dose: 75 mg Dextrose (D50w Syringe 50 Ml*) 12.5 gm IV PUSH .FOR FS < 60 - SS PRN PRN Reason: FS < 60 Heparin Sodium (Porcine) (Heparin Vial(*)) 5,000 units SUBCUT Q8HR [facility] Last Admin: 11/24/16 06:05 Dose: 5,000 units Hydrochlorothiazide (Hydrodiuril Tab*) 25 mg PO DAILY [facility] Last Admin: 11/24/16 09:12 Dose: 25 mg Insulin Glargine (Lantus(*)) 50 units SUBCUT DAILY [facility] Last Admin: 11/24/16 08:55 Dose: 50 units Insulin Human Lispro (Humalog*) 0 units SUBCUT ACHS [facility] PRN Reason: Protocol Last Admin: 11/24/16 07:59 Dose: 3 units 11/22/16 11/22/16 11/22/16 17:11 17:15 17:15 WBC 13.2 H RBC 6.02 H Hgb 15.6 Hct 47 MCV 78 L MCH 26 L MCHC 33 RDW 14 Plt Count 244 MPV 9 Neut % (Auto) 73.1 Lymph % (Auto) 17.8 L Luna % (Auto) 7.8 Eos % (Auto) 0.4 Baso % (Auto) 0.9 Absolute Neuts (auto) 9.7 H Absolute Lymphs (auto) 2.4 Absolute Monos (auto) 1.0 H Absolute Eos (auto) 0.1 Absolute Basos (auto) 0.1 Absolute Nucleated RBC 0.01 Nucleated RBC % 0.1 INR (Anticoag Therapy) 1.10 Sodium Potassium Chloride Carbon Dioxide Anion Gap BUN Creatinine Est GFR ( Amer) Est GFR (Non-Af Amer) BUN/Creatinine Ratio Glucose POC Glucose (mg/dL) 143 H Hemoglobin A1c Lactic Acid Calcium Total Bilirubin AST ALT Alkaline Phosphatase Troponin I Total Protein Albumin Globulin Albumin/Globulin Ratio Triglycerides Cholesterol LDL Cholesterol HDL Cholesterol Urine Color Urine Appearance Urine pH Ur Specific [place] Urine Protein Urine Ketones Urine Blood Urine Nitrate Urine Bilirubin Urine Urobilinogen Ur Leukocyte Esterase Urine WBC (Auto) Urine RBC (Auto) Ur Squamous Epith Cells Urine Bacteria Hyaline Casts Urine Glucose 11/22/16 11/22/16 11/22/16 17:15 17:15 22:42 WBC RBC Hgb Hct MCV MCH MCHC RDW Plt Count MPV Neut % (Auto) Lymph % (Auto) Luna % (Auto) Eos % (Auto) Baso % (Auto) Absolute Neuts (auto) Absolute Lymphs (auto) Absolute Monos (auto) Absolute Eos (auto) Absolute Basos (auto) Absolute Nucleated RBC Nucleated RBC % INR (Anticoag Therapy) Sodium 132 L Potassium TNP Chloride 98 L Carbon Dioxide 21 L Anion Gap 13 H BUN 39 H Creatinine 2.72 H Est GFR ( Amer) 30.7 Est GFR (Non-Af Amer) 23.9 BUN/Creatinine Ratio 14.3 Glucose 153 H POC Glucose (mg/dL) 79 Hemoglobin A1c Lactic Acid 1.3 Calcium 9.5 Total Bilirubin 0.80 AST TNP ALT 11 Alkaline Phosphatase 72 Troponin I 0.05 H* Total Protein 7.6 Albumin 3.7 Globulin 3.9 Albumin/Globulin Ratio 0.9 L Triglycerides 229 Cholesterol 257 LDL Cholesterol 183 HDL Cholesterol 28.4 Urine Color Urine Appearance Urine pH Ur Specific [place] Urine Protein Urine Ketones Urine Blood Urine Nitrate Urine Bilirubin Urine Urobilinogen Ur Leukocyte Esterase Urine WBC (Auto) Urine RBC (Auto) Ur Squamous Epith Cells Urine Bacteria Hyaline Casts Urine Glucose 11/23/16 11/23/16 11/23/16 05:59 05:59 07:53 WBC RBC Hgb Hct MCV MCH MCHC RDW Plt Count MPV Neut % (Auto) Lymph % (Auto) Luna % (Auto) Eos % (Auto) Baso % (Auto) Absolute Neuts (auto) Absolute Lymphs (auto) Absolute Monos (auto) Absolute Eos (auto) Absolute Basos (auto) Absolute Nucleated RBC Nucleated RBC % INR (Anticoag Therapy) Sodium 137 Potassium 2.8 L Chloride 101 Carbon Dioxide 23 Anion Gap 13 H BUN 42 H Creatinine 2.71 H Est GFR ( Amer) 30.8 Est GFR (Non-Af Amer) 24.0 BUN/Creatinine Ratio 15.5 Glucose 70 POC Glucose (mg/dL) 81 Hemoglobin A1c 9.3 H Lactic Acid Calcium 8.9 Total Bilirubin AST ALT Alkaline Phosphatase Troponin I 0.05 H* Total Protein Albumin Globulin Albumin/Globulin Ratio Triglycerides 220 Cholesterol 230 LDL Cholesterol 163 HDL Cholesterol 23.0 Urine Color Urine Appearance Urine pH Ur Specific [place] Urine Protein Urine Ketones Urine Blood Urine Nitrate Urine Bilirubin Urine Urobilinogen Ur Leukocyte Esterase Urine WBC (Auto) Urine RBC (Auto) Ur Squamous Epith Cells Urine Bacteria Hyaline Casts Urine Glucose 11/23/16 11/23/16 11/23/16 11:58 15:49 16:25 WBC RBC Hgb Hct MCV MCH MCHC RDW Plt Count MPV Neut % (Auto) Lymph % (Auto) Luna % (Auto) Eos % (Auto) Baso % (Auto) Absolute Neuts (auto) Absolute Lymphs (auto) Absolute Monos (auto) Absolute Eos (auto) Absolute Basos (auto) Absolute Nucleated RBC Nucleated RBC % INR (Anticoag Therapy) Sodium Potassium Chloride Carbon Dioxide Anion Gap BUN Creatinine Est GFR ( Amer) Est GFR (Non-Af Amer) BUN/Creatinine Ratio Glucose POC Glucose (mg/dL) 236 H 212 H Hemoglobin A1c Lactic Acid Calcium Total Bilirubin AST ALT Alkaline Phosphatase Troponin I Total Protein Albumin Globulin Albumin/Globulin Ratio Triglycerides Cholesterol LDL Cholesterol HDL Cholesterol Urine Color Yellow Urine Appearance Clear Urine pH 5.0 Ur Specific [place] 1.019 Urine Protein 3+(>=500 mg/dl) H Urine Ketones Trace H Urine Blood 1+ H Urine Nitrate Negative Urine Bilirubin Negative Urine Urobilinogen Negative Ur Leukocyte Esterase Negative Urine WBC (Auto) Trace(0-5/hpf) Urine RBC (Auto) 1+(3-5/hpf) H Ur Squamous Epith Cells Present H Urine Bacteria Absent Hyaline Casts Present H Urine Glucose 2+(150 mg/dl) H 11/23/16 11/24/16 20:21 06:33 WBC RBC Hgb Hct MCV MCH MCHC RDW Plt Count MPV Neut % (Auto) Lymph % (Auto) Luna % (Auto) Eos % (Auto) Baso % (Auto) Absolute Neuts (auto) Absolute Lymphs (auto) Absolute Monos (auto) Absolute Eos (auto) Absolute Basos (auto) Absolute Nucleated RBC Nucleated RBC % INR (Anticoag Therapy) Sodium Potassium Chloride Carbon Dioxide Anion Gap BUN Creatinine Est GFR ( Amer) Est GFR (Non-Af Amer) BUN/Creatinine Ratio Glucose POC Glucose (mg/dL) 198 H 176 H Hemoglobin A1c Lactic Acid Calcium Total Bilirubin AST ALT Alkaline Phosphatase Troponin I Total Protein Albumin Globulin Albumin/Globulin Ratio Triglycerides Cholesterol LDL Cholesterol HDL Cholesterol Urine Color Urine Appearance Urine pH Ur Specific [place] Urine Protein Urine Ketones Urine Blood Urine Nitrate Urine Bilirubin Urine Urobilinogen Ur Leukocyte Esterase Urine WBC (Auto) Urine RBC (Auto) Ur Squamous Epith Cells Urine Bacteria Hyaline Casts Urine Glucose On exam, awake, alert, oriented x3. Speech fluent with subtle dysarthria, completely intelligible. Pupils symmetric and reactive. Face symmetric, I did not notice any asymmetry. Tongue midline. V1-3 intact to light touch and pinprick. Palate elevates upward. Motor exam, in UE is 5/5 on the right, 4/5 on the left, proximal and distal. In LE, right is 5/5, left is 4/5 on the left. Sensory exam intact to light touch and pinprick in UE and LE symmetrically. MRA HEAD W/O IMPRESSION: 1. Negative for occlusion or appreciable stenosis at the basilar artery. 2. The constellation of findings is concerning for hemodynamic significant stenosis at the cephalad portion of the LEFT carotid siphon through the M1 segment of the LEFT middle cerebral artery and A1 segment of the anterior cerebral artery. Short segment hemodynamic significant stenosis at the LEFT carotid siphon or longer segment stenosis should be considered. Consider CT angiogram for further assessment if clinically feasible. Assessment and Plan: 61-year-old right handed male with left sided weakness and a stroke in the right jermaine-midbrain junction infarct. The MRA shows stenosis in the left MCA ( M1 segment) and SEBLE (A1 segment), however, those are currently asymptomatic and not related to the acute infarct. They may need further intervention; but probably he needs an angiogram (CT or 4-vessel) for better visualization. His kidney function is the prohibitive factor for CT angiogram. I would like to seek a vascular surgery colleague opinion by looking at the images and would contact the [facility] [place] for that purpose. Continue ASA, plavix and high dose statins. Control of vascular risk factors was discussed with the patient. Total time spent at least 25 minutes discussing the above and the plan. Addendum at 15:25- I talked to the endovascular team at [facility] earlier today. They reviewed the images and it was felt that the cause of the stroke still not determined and he may need vascular intervention. Therefore, it was determined that the patient need higher level of care for his vascular workup and will be transferred to the [facility]. []
[2016-11-24] MEDS ORDERED: hydrALAZINE IV* 20 MG/ML VIAL IV SLOW PU ONE (12:58)
--- NOTE | 2016-11-24 13:23 | TRS ---
cc: Dr. Zhong DATE OF ADMISSION: 11/22/2016. [facility]. PRINCIPAL DIAGNOSES: 1. Right acute to subacute mid brain jermaine junction CVA. 2. Hemodynamically significant stenosis at the cephalad portion of the left carotid siphon through the CT segment of the left middle cerebral artery and A1 segment of the anterior cerebral artery. SECONDARY DIAGNOSES: 1. Uncontrolled type 2 diabetes. 2. Uncontrolled hyperlipidemia. 3. Hypertension. DISCHARGE MEDICATIONS: 1. Lipitor 80 mg p.o. at bedtime. 2. Aspirin 325 mg p.o. daily. 3. Plavix 75 mg p.o. daily. 4. Hydrochlorothiazide 25 mg p.o. daily. 5. Lantus 55 units subcutaneous daily. 6. Lispro via sliding scale ACHS. HOSPITAL COURSE: Mr. Summers is a 61-year-old male with a history of uncontrolled type 2 diabetes and hyperlipidemia who presented to the emergency room with complaints of left-sided weakness. The patient started feeling weak the day prior to admission and became progressive worse throughout the date of admission. He described weakness in his entire left side, especially his left arm and leg. His son felt as if the patient had markedly slurred speech when he spoke to him, but there were no issues of word finding. The patient was admitted for a presumed CVA. The patient underwent brain MRI which revealed the constellation of findings is most consistent with acute or subacute ischemic infarct involving the right aspect of the mid brain jermaine junction corresponding with blood supplied by the pontine arteries from the basilar artery; mild mass effect without effacement of the surrounding basal cistern is noted. The patient underwent carotid Doppler's which revealed no evidence for carotid stenosis; there was questionable right subclavian stenosis without evidence of subclavian steal. The patient was then seen in consultation by Dr. Valle who recommended adding Plavix to the aspirin that was already started. Additionally, he agreed with increasing his Lipitor to 80 mg nightly. He recommended getting an MRA of the head and neck without contrast given his chronic kidney disease to assess the basilar artery. The patient underwent transthoracic echocardiogram which revealed a normal EF of 50 to 55 percent, abnormal left ventricular diastolic filling, mild dilation of the ascending aorta, left ventricular hypertrophy, and no clear source of embolism was identified. The patient then underwent an MRA of the head which revealed the constellation of findings concerning for hemodynamic significant stenosis at the cephalad portion of the left carotid siphon through the M1 segment of the left middle cerebral artery and A1 segment of the anterior cerebral artery. The patient was seen in follow-up by Dr. Mckeon who then spoke with Neurosurgery at [place] about the findings of the MRA. It was recommended that the patient be transferred to [place] for advanced cerebral imaging, as well as Vascular Surgery input. The patient is in agreement with this transfer. The patient's blood pressure was initially allowed to be elevated due to the acute CVA. He remains hypertensive with systolic most recently of 230/76. Dr. Garcia, the accepting neurosurgeon, is to be getting ahold of me to discuss blood pressure control moving forward prior to transfer. In managing the patient's stroke, he also met with tax analyst to discuss diet for management of his obesity, hyperlipidemia, and type 2 diabetes. There is also a concern about the patient snoring at night; therefore, he underwent a pulse oximetry study last night which revealed the patient to desaturate less than 89 percent for 54 minutes out of 7 hours and 9 minutes. This would qualify him for nocturnal O2. The patient will need an outpatient evaluation for obstructive sleep apnea once all is settled down with his stroke. The patient does have deficits remaining on exam, including left upper and lower extremity weakness and slight facial droop. The patient has been seen by Occupational Therapy who noted an unsteady gait secondary to left-sided weakness, left-sided motor planning deficits, and left-sided proprioceptive deficits. The patient was felt to benefit from skilled OT services. The patient was also seen by Physical Therapy where the patient's main deficits were noted to include balance , left-sided weakness and impulsivity. It was recommended that the patient complete rehab prior to discharge home. On the day of discharge, the patient is awake, alert and oriented, lying in the bed in no acute disease. No significant dysarthria was noted. The patient's cardiac exam revealed normal S1, S2 with a bradycardic rate which was regular. His pulmonary exam revealed clear lungs bilaterally. His abdominal exam revealed bowel sounds to be present. Abdomen was soft, nontender and nondistended. His neurological exam reveals continued weakness in the left upper and lower extremity. There was no significant change to the weakness from the day prior. FOLLOW-UP CONCERNS: The patient is being transferred to [facility] today, 11/24/2016. ACTIVITY: As tolerated with assistance. CONDITION ON TRANSFER: Stable. Forty-five minutes were spent on discharging this patient. [id number]/CPS #: [id number]/CPS #: [id number] TIFFANI
--- NOTE | 2016-11-24 13:32 | TRS ---
CC: Dr. Zhong CONTINUATION OF DICTATION DATE OF ADMISSION: 11/22/2016. DATE OF TRANSFER: 11/24/2016. HOSPITAL COURSE: The patient was seen in follow-up by Dr. Mckeon who then spoke with Neurosurgery at [place] about the findings of the MRA. It was recommended that the patient be transferred to [facility] for advanced cerebral imaging, as well as Vascular Surgery input. The patient is in agreement wi th this transfer. The patient's blood pressure was initially allowed to be elevated due to the acute CVA. He remains hypertensive with systolic most recently of 230/76. Dr. Garcia, the accepting neurosurgeon, is to [place] of me to discuss blood pressure control moving forward prior to transfer. In [facility] the patient's stroke, he also met with instructional technologist to discuss diet for management of his obesity, h yperlipidemia, and type 2 diabetes. There is also a concern about the patient snoring at night; the refore, he underwent a pulse oximetry study last night which revealed the patient to desaturate less than 89 percent for 54 minutes out of 7 hours and 9 minutes. This would qualify him for nocturnal O2. The patient will need an outpatient evaluation for obstructive sleep apnea once all is settled down with his stroke. The patient does have deficits remaining on exam, including left upper and lo wer extremity weakness and slight facial droop. The patient has been seen by Occupational Therapy w ho noted an unsteady gait secondary to left-sided weakness, left-sided motor planning deficits, and left-sided proprioceptive deficits. The patient was felt to benefit from skilled OT services. The patient was also seen by Physical Therapy where the patient's main deficits were noted to include ba michell, left-sided weakness and impulsivity. It was recommended that the patient complete rehab prio r to discharge home. On the day of discharge, the patient is awake, alert and oriented, lying in the bed in no acute dise ase. No significant dysarthria was noted. The patient's cardiac exam revealed normal S1, S2 with a bradycardic rate which was regular. His pulmonary exam revealed clear lungs bilaterally. His abdo tamela exam revealed bowel sounds to be present. Abdomen was soft, nontender and nondistended. His neurological exam reveals continued weakness in the left upper and lower extremity. There was no sig nificant change to the weakness from the day prior. Again, the patient is going to be transferred to [place] today, 11/24/2016. Dr. Garcia has kindly ac cepted the patient in transfer. FOLLOW-UP CONCERNS: The patient is being transferred to [facility] today, 11/24/2016. ACTIVITY: As tolerated with assistance. CONDITION ON TRANSFER: Stable. Forty-five minutes were spent on discharging this patient. [id number]/CPS #: [id number]
[2016-11-24 13:59] VITALS: BP 193/92
== END 2016-11-24 15:50 | disposition short-term general hospital (02) | DRG 45 ==
LOC: ED 16:41 → MEDTELE 19:13 → OBSVTOIN 11-23 13:47
PROVIDERS: ADMIT Internal Medicine; ATTEND Hospitalist
PROC: 3E0234Z Introduction of Serum, Toxoid and Vaccine into Muscle, Percutaneous Approach (ICD-10-PCS; principal; 2016-11-24)
DX: I63.9 Cerebral infarction, unspecified (principal); G81.94 Hemiplegia, unspecified affecting left nondominant side; I66.02 Occlusion and stenosis of left middle cerebral artery; E11.22 Type 2 diabetes mellitus with diabetic chronic kidney disease; G89.29 Other chronic pain; I12.9 Hypertensive chronic kidney disease with stage 1 through stage 4 chronic kidney disease, or unspecified chronic kidney disease; E78.5 Hyperlipidemia, unspecified; N18.9 Chronic kidney disease, unspecified; E78.00 Pure hypercholesterolemia, unspecified; I51.7 Cardiomegaly; M54.5 Low back pain; H26.9 Unspecified cataract; R29.706 NIHSS score 6; R29.810 Facial weakness; R47.81 Slurred speech; I65.22 Occlusion and stenosis of left carotid artery; I66.12 Occlusion and stenosis of left anterior cerebral artery; E11.65 Type 2 diabetes mellitus with hyperglycemia; I77.819 Aortic ectasia, unspecified site; I70.8 Atherosclerosis of other arteries; E66.9 Obesity, unspecified; R45.87 Impulsiveness; R26.81 Unsteadiness on feet; I25.2 Old myocardial infarction; Z88.5 Allergy status to narcotic agent; Z88.8 Allergy status to other drugs, medicaments and biological substances; Z82.49 Family history of ischemic heart disease and other diseases of the circulatory system; Z84.1 Family history of disorders of kidney and ureter; Z87.891 Personal history of nicotine dependence; Z83.3 Family history of diabetes mellitus; Z80.9 Family history of malignant neoplasm, unspecified; Z23 Encounter for immunization; Z79.82 Long term (current) use of aspirin; Z79.02 Long term (current) use of antithrombotics/antiplatelets; Z79.4 Long term (current) use of insulin; Z68.39 Body mass index [BMI] 39.0-39.9, adult
CPT/HCPCS: 36415; 70450; 70544; 70551; 71010; 80048; 80053; 80061; 81003; 81015; 83036; 83605; 84484; 85025; 85610; 90732; 93005; 93306; 93880; 94762; A9270-GY; C8929; G0378; G8987-GO-CK; G8988-GO-CI; G8996-GN-CJ; G8997-GN-CH; J0360; J1644; J3480

== ENCOUNTER 2016-12-04 11:46 | Inpatient (IN) | payer BC ==
[2016-12-04] MEDS ORDERED: Magnesium Hydroxide LIQ* 30 ML UDC PO PRN (15:59)
[2016-12-04] MEDS ORDERED: Bisacodyl SUPP* 10 MG SUPP PR PRN (15:59)
[2016-12-04] MEDS ORDERED: Dextrose 50% Syringe 50 ML* 25 GM/50 ML SYRINGE IV PUSH PRN (16:20)
[2016-12-04] MEDS ORDERED: Insulin LISPRO* 1 UNITS UNIT SUBCUT ONE ×2 (17:25→20:49)
[2016-12-04] MEDS: glipiZIDE TAB* 5 MG PO SCH (17:26)
[2016-12-04] MEDS ORDERED: glipiZIDE TAB* 5 MG ONE (17:26)
[2016-12-04] MEDS: Insulin LISPRO* 1 UNITS UNIT SUBCUT SCH ×4 (17:27→21:16)
[2016-12-04] MEDS ORDERED: Insulin GLARGINE(*) 1 UNITS UNIT ONE (20:49)
[2016-12-04] MEDS: Senna TAB PO SCH (21:13)
[2016-12-04] MEDS: Docusate CAP* 100 MG PO SCH (21:13)
[2016-12-04] MEDS: Enoxaparin(*) 30 MG/0.3 ML SYR SUBCUT SCH (21:14)
[2016-12-04] MEDS: Insulin GLARGINE(*) 1 UNITS UNIT SUBCUT SCH (21:16)
--- NOTE | 2016-12-04 23:27 | HP ---
ADMISSION HISTORY AND PHYSICAL: DATE OF ADMISSION: 12/04/16 REASON FOR ADMISSION: Right pontine stroke with left hemiparesis. HISTORY OF PRESENT ILLNESS: Lizandro Summers is a 61-year-old male. He has a medical history significant for diabetes mellitus. He also has a history of hypertension and hyperlipidemia. The patient has chronic kidney disease probably secondary to diabetes. The patient came to the emergency room acutely on 11/22/16, complaining of left-sided weakness. His son came home and found him weak and looking like he had a left facial droop. The son brought him to the emergency room. The patient was brought to the emergency room and had a brain CT, which did not show any acute findings. The patient later had an MRI of the brain showing an acute or subacute ischemic infarct in the right aspect of the mid brain jermaine junction. The patient was admitted to the hospital. He had a CT angiogram showing stenosis of the left carotid through the M1 segment of the left middle cerebral artery. He underwent carotid Dopplers revealing no evidence for carotid stenosis. He had Plavix added to his aspirin that he was already taking. He also had his Lipitor increased to 80 mg a day. MR angiogram revealed significant stenosis at the cephalad portion of the left carotid siphon through the M1 segment of the left middle cerebral artery. It was decided to transfer the patient to [facility] for advanced cerebral imaging as well as surgical input. On arrival, the patient had about 4 /5 strength in his left upper and lower extremity, the next day his exam had worsened and he had significant left arm weakness. A repeat CAT scan did not show a hemorrhage. His exam continued to fluctuate. His BP goal was liberalized and his weakness stabilized. It was felt that his stroke was not due to the findings on MR angiogram, but rather due to small vessel disease due to uncontrolled diabetes and hypertension. It was felt that the procedures were not indicated as a result. The patient's diet improved and he was able to tolerate a regular diet. It was recommended that he should be continued on Plavix for at least 3 months and then the Plavix could be discontinued. It was felt that the patient had physical therapy and occupational therapy needs. He is now being admitted for inpatient rehab so that he might return to independent living. PAST MEDICAL HISTORY: Significant for diabetes mellitus, which was not in good control. Hemoglobin A1c most recently was 9.3 on 11/23/16. Also has a history of hypertension and hyperlipidemia. CURRENT MEDICATIONS: Include: 1. Amlodipine. 2. Prozac. 3. Lisinopril. 4. Insulin, both Lantus and lispro. 5. Lipitor. 6. Plavix. 7. Glipizide. 8. Aspirin a day. ALLERGIES: The patient has allergies to HYDROCODONE and GABAPENTIN. SOCIAL HISTORY: He is a nonsmoker. Rare drinker. He lives in a handicap- accessible apartment. His son lives with him. REVIEW OF SYSTEMS: Patient reports no current shortness of breath or chest pain. PHYSICAL EXAMINATION VITAL SIGNS: Patient's temperature is 97.7, blood pressure is 154/93, pulse 91 , respirations 20. HEENT: He has a slight left facial palsy. NECK: Supple with no lymphadenopathy. LUNGS: Sounded clear to auscultation bilaterally. HEART: Sounds are regular. S1 and S2 are audible. ABDOMEN: Soft and nontender. EXTREMITIES: His left upper extremity had decreased tone. Peripheral pulses were intact. NEUROLOGIC: He is awake, alert, oriented. Muscle strength in the left arm is 1 - 2/5. Left leg is about 3+/5. FUNCTIONAL EXAM: The patient transfers with minimal amount of assistance. ASSESSMENT: Cerebrovascular accident with left hemiparesis. PLAN: Integrate him to a comprehensive and therapeutic rehab program with the following goals: 1. Physical Therapy will work with the patient. They are going to work on functional transfer training, ambulation training with a walker. 2. Occupational Therapy will see the patient, work on his activities of daily living including toileting and toilet transfers. 3. Lovenox for DVT prophylaxis. We have to adjust it given his BUN and creatinine. 4. His bowels will be regulated. 5. For his diabetes, we will do fingersticks 4 times a day with a sliding scale insulin coverage as well as carb counting and continue with Glucotrol and Lantus insulin. 6. Continue Plavix and aspirin for secondary stroke prevention. 7. Continue Prozac for neurologic recovery. 8. Advanced directives: The patient is a full code. 9. Family training as appropriate. 10. student services dean will be closely involved to make sure that any services and equipment the patient requires are in place prior to discharge. 11. Home with appropriate services. ESTIMATED LENGTH OF STAY: Seventeen to 21 days. [id number]/[facility] #: [id number] [facility] CENTERMayra
[2016-12-05] MEDS: Insulin LISPRO* 1 UNITS UNIT SUBCUT SCH ×7 (07:30→18:11)
[2016-12-05] MEDS: FLUoxetine CAP* 20 MG PO SCH (07:55)
[2016-12-05] MEDS: Lisinopril TAB* 10 MG PO SCH (07:55)
[2016-12-05] MEDS: Aspirin EC TAB* 325 MG PO SCH (07:55)
[2016-12-05] MEDS: amLODIPine TAB* 5 MG PO SCH (07:55)
[2016-12-05] MEDS: Clopidogrel TAB* 75 MG PO SCH (07:55)
[2016-12-05] MEDS: glipiZIDE TAB* 5 MG PO SCH ×2 (07:55→18:02)
[2016-12-05] MEDS: Docusate CAP* 100 MG PO SCH ×2 (07:55→19:37)
--- NOTE | 2016-12-05 12:30 | PMRUTEAM ---
PMRU: Goals Current Status: Nursing: Current Status Skin Deviations [Bilateral Other Groin] Skin Deviation Description [ no redness noted Bilateral Groin] Bladder Current Status pt using urinal overnight, to bathroom during day Bowel Current Status last bm 12/04 Nutrition Current Status excellent Physical Therapy: Current Status Bed Mobility Assistance Min Assist Transfer Moblility Assistance Min Assist,Mod Assist Transfer/Bed Mobility Honorio Walker Recommended Devices Transfer Mobility Comment pt. very unsteady and unsafe Ambulation Assistance Min Assist,Mod Assist Ambulation Assistive Devices Platform Walker,Honorio Walker Number of Feet Patient 110 x 2 Ambulated Ambulation Comment min with honorio-cane and cg to min with platform 2 w /w. Stairs Assistance Not Tested Stairs Recommended Devices One Rail Number of Stairs 5 Occupational Therapy: Current Status Upper Body Dressing Min Assist Lower Body Dressing Max Asst Bathing Mod Assist Toileting Mod Assist Toilet Transfer Min Assist Shower Transfer Min Assist Eating Supervision Instrumental ADL n/a Rec Therapy: Current Status Summary of Assessment and RT assessment complete and pt. is aware of RT Clinical Impression services. Pt. was open to conversation, talkative and pleasant but tearful a few times throughout our interaction. Pt. states he enjoys his life and was able to identify with different leisure interests. Treatment Goals Pt. will engage in leisure activities while on the unit. Treatment Plan Provide RT services and encourage involvement. Social Work: Current Status Discharge Plan return home with home care svs and family support Potential for Family Training pt's son is involved and supportive Anticipated Discharge Home Destination Discharge With Return home with homecare services and family support Nutrition: Current Status Monitoring Pt with hx poorly controlled T2DM, s/p CVA. Last A1c 9.3% 11/23/16. Takes Glipizide, as well as Lantus and Lispro for BG control. BG low (71) at 1 am today, improving to 84 at 7:26. Will follow BG . Appropriate consistent carb diet ordered. Intake 100% so far; last BM yesterday (12/04). Full nutrition assessment to follow per protocol. Goals: Physical Therapy: Initial Goals Bed Mobility Assistance Independent Transfer Mobility Assistance Independent Transfer/Bed Mobility Large Base Quad Cane Recommended Devices Ambulation Independent Ambulation Recommended Devices Large Base Quad Cane Ambulation Distance 150 Stairs Assistance Independent Stair Recommended Devices One Rail Number of Stairs 12 Physical Therapy: Updated Goals Bed Mobility Assistance Independent Transfer Mobility Assistance Independent Transfer/Bed Mobility Large Base Quad Cane Recommended Devices Ambulation Assistance Independent Ambulation Assistive Devices Large Base Quad Cane Ambulation Distance (ft) 150 Stairs Assistance Independent Stairs Recommended Devices One Rail Number of Stairs 12 Occupational Therapy: Initial Goals Goals to be Completed in (Days 14 ) Upper Body Bathing Routine Modified Independent with Lower Body Bathing Routine Supervision/Set Up Upper Body Dressing Routine Modified Independent with Lower Body Dressing Routine Modified Independent with Toilet Hygeine and Clothing Modified Independent with Management Routine Toilet Transfer Routine Modified Independent with Step-In Shower Transfer Supervision/Set Up Routine Tub Transfer Routine Supervision/Set Up Functional Transfers for ADL Modified Independent with Grooming Routine Independent Feeding Routine Independent Nutrition: Goals Intervention Goals 1. Intake will remain adequate to meet needs without contributing to excess wt gain 2. BG will be adequately controlled without hypo/ hyperglycemia 3. Pt will maintain regular bowel pattern without constipation/diarrhea Social Work: Goals Discharge Plan return home with home care svs and family support Potential for Family Training pt's son is involved and supportive Anticipated Discharge Home Destination Discharge With Return home with homecare services and family support Care Plan: Care Plan ADL's - Improve/Maintain Start: 12/04/16 21:42 Freq: QSHIFT Status: Active Target: Activity Type Activity Date Activity User E-Sign Co-Sign Detail Recorded Client Recorded Date Recorded By Document 12/05/16 10:58 [id number] 12/05/16 10:59 [id number] 12/05/16 10:58 PMRU Outcome: ADL's/ADL Transfers Orders/Interventions Occupational Therapy Evaluation & Treatment Communication Tool in Patient Room Device Yes: platform walker. Patient to receive OT 5x/wk for 60-120 Therex min/day Self Care Management Group Therapy Neuromuscular ReEducation UE/LE ADL's with Assist Yes ADL Transfers with Assist Yes Toileting: Transfers,Clothing Management Yes ,Hygeine w/Assist Light Kitchen/Laundry w/Assist Yes Progression Toward Outcome/Goals Progressing Outcome/Goals Met Pt demosntrates with L sided neglect and L UE weakness/ hemiplegia. Pt requires assistance with all ADls and v /c for safety during transfers. He demonstrates good rehab potential for increasing his current level of function to mod I-S. Cardiovascular- Improve/Maintain Start: 12/04/16 21:42 Freq: QSHIFT Status: Active Target: Activity Type Activity Date Activity User E-Sign Co-Sign Detail Recorded Client Recorded Date Recorded By Document 12/05/16 09:01 [id number] 12/05/16 09:01 [id number] 12/05/16 09:01 PMRU Outcome: Cardiovascular Vital Signs q Shift for 48hrs Then BID Yes Daily Weight Ordered No Current Cardiovascular Outcome/Goal Maintain/ Achieve Baseline HR, BP , Perfusion Improve HR Within Prescribed Parameters Maintain/ Improve Perfusion Maintain/ Achieve Hemodynamic Stability Free of Abnormal Cardiac Symptoms Progression Toward Outcome/Goal Progressing Communication-Improve/Maintain Start: 12/04/16 21:42 Freq: QSHIFT Status: Active Target: Activity Type Activity Date Activity User E-Sign Co-Sign Detail Recorded Client Recorded Date Recorded By Document 12/04/16 21:43 [id number] 12/04/16 21:46 [id number] 12/04/16 21:43 PMRU Outcome: Communication/Cognitive Status Outcome/Goals Makes Needs Known Effectively Progression Toward Outcomes/Goals Progressing Coping/Psych-Improve/Maintain Start: 12/04/16 21:42 Freq: QSHIFT Status: Active Target: Activity Type Activity Date Activity User E-Sign Co-Sign Detail Recorded Client Recorded Date Recorded By Document 12/05/16 09:01 [id number] [id number] 12/05/16 09:01 [id number] 12/05/16 09:01 PMRU Outcome: Coping/Psychosocial Coping Outcome/Goals Verbalization of Acceptance of Rehab Admit Verbalization of Sense of Control Over Health Status Utilization of Appropriate Problem Solving Techniques Willingness to Participate in Treatment Plan and Basic Needs Utilization of Available Support Systems Absence of Destructive Behavior to Self/Others Psychosocial Outcome/Goals Maintain/ Improve Emotional Health Demonstrates Knowledge of Healthy Coping Mechanisms Available Cooperate/ Participate in Plan Progression Toward Outcome/Goals - Progressing Coping Progression Toward Outcome/Goals - Progressing Psychosocial DVT Prophylaxis- Improve/Maintain Start: 12/04/16 21:42 Freq: QSHIFT Status: Active Target: Activity Type Activity Date Activity User E-Sign Co-Sign Detail Recorded Client Recorded Date Recorded By Document 12/05/16 09:01 [id number] 12/05/16 09:01 [id number] 12/05/16 09:01 PMRU Outcome: DVT Prophylaxis Outcome/Goals Remains Free of DVT Complies with DVT Prophylaxis /Treatment Demonstrates Knowledge of DVT Prevention/ Treatment TEDS Stockings on Every AM, Off at HS Progression Toward Outcome/Goals Progressing Discharge Planning - Improve/Maintain Start: 12/04/16 21:42 Freq: QSHIFT Status: Active Target: Activity Type Activity Date Activity User E-Sign Co-Sign Detail Recorded Client Recorded Date Recorded By Document 12/04/16 21:43 [id number] [email or web address] 12/04/16 21:46 [id number] 12/04/16 21:43 PMRU Outcome: Discharge Planning Identify Patient Needs yes Update Patient Family No Outcome/Goals Demonstrates Understanding of Discharge Plan Homecare Referral - See Comment Progression Toward Outcome/Goals Progressing Education-Improve/Maintain Start: 12/04/16 21:42 Freq: QSHIFT Status: Active Target: Activity Type Activity Date Activity User E-Sign Co-Sign Detail Recorded Client Recorded Date Recorded By Document 12/05/16 09:01 [id number] 12/05/16 09:01 [id number] 12/05/16 09:01 PMRU Outcome: Education Outcome/Goals Demonstrate/ Verbalize Understanding of Written Discharge Instructions Demonstrates Skills Encourage Questions Progression Toward Outcome/Goals Progressing /GI-Improve/Maintain Start: 12/04/16 21:42 Freq: QSHIFT Status: Active Target: Activity Type Activity Date Activity User E-Sign Co-Sign Detail Recorded Client Recorded Date Recorded By Document 12/05/16 09:01 [id number] [id number] 12/05/16 09:01 [id number] 12/05/16 09:01 PMRU Outcome: Genitourinary/ Gastrointestinal Genitourinary- Outcome/Goals Maintain/ Achieve Urinary Continence Maintain/ Achieve Adequate Urinary Output Gastrointestinal-Outcome/Goals Maintain/ Achieve Bowel Regularity in Accordance with Pt's Baseline Remain Free of Emesis Prevent Constipation Laxatives as Ordered Progression Toward Outcome/Goals - Progressing Progression Toward Outcome/Goals - GI Progressing Medication Administration Start: 12/04/16 21:42 Freq: QSHIFT Status: Active Target: Activity Type Activity Date Activity User E-Sign Co-Sign Detail Recorded Client Recorded Date Recorded By Document 12/05/16 09:01 [id number] [email or web address] 12/05/16 09:01 [id number] 12/05/16 09:01 PMRU Outcome: Medication Administration Outcome/Goals Patient Independent with Medication Administration at Home Demonstrates Understanding Demonstrates Lovenox Administration Progression Towards Outcome/Goals Progressing Is Patient Going Home on Lovenox? Yes If Patient is Going Home on Lovenox, Who unsure whether Will Administer pt is going home on lovenox Metabolic Status- Improve/Maintain Start: 12/04/16 21:42 Freq: QSHIFT Status: Active Target: Activity Type Activity Date Activity User E-Sign Co-Sign Detail Recorded Client Recorded Date Recorded By Document 12/05/16 09:01 [id number] [email or web address] 12/05/16 09:01 [id number] 12/05/16 09:01 PMRU Outcome: Metabolic Status Have Fingersticks Been Ordered Yes Fingerstick Order Frequency AC & HS Outcome/Goals Maintain/ Improve Metabolic Status Demonstrate Knowledge of Prevention/ Treatment of Metabolic Imbalances Progression Toward Outcome/Goals Progressing Mobility- Improve/Maintain Start: 12/04/16 15:04 Freq: QSHIFT Status: Active Target: Activity Type Activity Date Activity User E-Sign Co-Sign Detail Recorded Client Recorded Date Recorded By Document 12/04/16 15:04 [id number] 12/04/16 15:05 [id number] 12/04/16 15:04 PMRU Outcome: Mobility Physical Therapy Evaluation and Yes Treatment Activity OOB with Assistance Yes WBAT Yes NWB No TTWB No Device Yes: hemiwalker Assistance Yes: min a Patient to be seen 5x/wk for 60-120 min/ Therex day for: Mobility Training Gait Training Balance Outcome/Goals Maintain/ Achieve Baseline Mobility Status Improve Mobility Status Demonstrates Proper Use of Assistive Devices Free from Complications of Immobility Bed Mobility Yes: independent Transfers Yes: independent Gait x ft Yes: mod independent with hemiwalker , quad cane W/C Mobility x ft No Up/Down Stairs Yes: sup with rail 12 steps With HEP Yes: independent Neurological- Improve/Maintain Start: 12/04/16 21:42 Freq: QSHIFT Status: Active Target: Activity Type Activity Date Activity User E-Sign Co-Sign Detail Recorded Client Recorded Date Recorded By Document 12/05/16 09:01 [id number] 12/05/16 09:01 [id number] 12/05/16 09:01 PMRU Outcome: Neurological Weakness/Aphasia Weakness Left Side Outcome/Goals Improve Neurological Status Prevent Avoidable Neurological Decline Demonstrate Knowledge of Prevention/Tx of Neuro Disorders/ Complication Maintain/ Improve Strength/ROM Progression Toward Outcome/Goals Progressing Respiratory - Improve/Maintain Start: 12/04/16 21:42 Freq: QSHIFT Status: Active Target: Activity Type Activity Date Activity User E-Sign Co-Sign Detail Recorded Client Recorded Date Recorded By Document 12/05/16 09:01 [id number] 12/05/16 09:01 [id number] 12/05/16 09:01 PMRU Outcome: Respiratory Does Patient Have a Trach No Outcome/Goals Maintain/ Improve O2 Sat per MD Order Maintain/ Improve Baseline Respiratory Status Maintain/ Improve Activity Tolerance Prevent Pneumonia/ Atelectasis Remain Aspiration Free Progression Toward Outcome/Goals Progressing Safety- Improve/Maintain Start: 12/04/16 21:42 Freq: QSHIFT Status: Active Target: Activity Type Activity Date Activity User E-Sign Co-Sign Detail Recorded Client Recorded Date Recorded By Document 12/05/16 09:01 [id number] [id number] 12/05/16 09:01 [id number] 12/05/16 09:01 PMRU Outcome: Safety Outcome/Goals Remain Free of Injury or Harm Cooperates with Safety Measures for Least Restrictive Environment Prevent Falls/ Injury Equipment Needed Progression Toward Outcome/Goals Progressing Skin- Improve/Maintain Start: 12/04/16 21:42 Freq: QSHIFT Status: Active Target: Activity Type Activity Date Activity User E-Sign Co-Sign Detail Recorded Client Recorded Date Recorded By Document 12/05/16 09:01 [id number] [email or web address] 12/05/16 09:01 [id number] 12/05/16 09:01 PMRU Outcome: Skin Skin Risk Level Low Skin Orders Turn/Position q2hr While in Bed Outcome/Goals Maintain/ Improve Skin Intergrity Free from Decubitus Progression Toward Outcome/Goals Progressing Medicine Note: Length of Stay: 2 weeks Anticipated Discharge Destination: Home Tentative Discharge Date: 12/19/16 Discharged to: Home
[2016-12-05] MEDS: Atorvastatin* 80 MG TAB PO SCH (18:02)
[2016-12-05] MEDS: Senna TAB PO SCH (19:38)
[2016-12-05] MEDS: Enoxaparin(*) 30 MG/0.3 ML SYR SUBCUT SCH (20:59)
[2016-12-05] MEDS: Insulin GLARGINE(*) 1 UNITS UNIT SUBCUT SCH (21:00)
[2016-12-06 06:23] LABS: Hematocrit 42 % (42-52); Hemoglobin 13.8 g/dl (14.0-18.0); Mean Corpuscular HGB Conc 33 g/dl (31-36); Mean Corpuscular Hemoglobin 26 pg (27-31); Mean Corpuscular Volume 79 fL (80-94); Mean Platelet Volume 9 um3 (7.4-10.4); Red Blood Count 5.28 10^6/ul (4.0-5.4); Red Cell Distribution Width 14 % (10.5-15); White Blood Count 9.9 10^3/ul (3.5-10.8)
[2016-12-06 06:50] LABS: Albumin 3.4 g/dL (3.2-5.2); BUN/Creatinine Ratio 23.1 (8-20); Calcium 9.5 mg/dL (8.6-10.3); EGFR Non-African American 34.2 (>60); Globulin 3.5 g/dL (2-4); Total Bilirubin 0.4 mg/dL (0.2-1.0); Total Protein 6.9 g/dL (6.4-8.9)
[2016-12-06] MEDS: Insulin LISPRO* 1 UNITS UNIT SUBCUT SCH ×7 (07:28→23:09)
[2016-12-06] MEDS: glipiZIDE TAB* 5 MG PO SCH ×2 (07:59→16:58)
[2016-12-06] MEDS: Clopidogrel TAB* 75 MG PO SCH (07:59)
[2016-12-06] MEDS: amLODIPine TAB* 5 MG PO SCH (07:59)
[2016-12-06] MEDS: Lisinopril TAB* 10 MG PO SCH (07:59)
[2016-12-06] MEDS: Docusate CAP* 100 MG PO SCH ×2 (07:59→20:50)
[2016-12-06] MEDS: FLUoxetine CAP* 20 MG PO SCH (07:59)
[2016-12-06] MEDS: Aspirin EC TAB* 325 MG PO SCH (07:59)
[2016-12-06] MEDS: Atorvastatin* 80 MG TAB PO SCH (16:58)
[2016-12-06] MEDS: Enoxaparin(*) 30 MG/0.3 ML SYR SUBCUT SCH (20:47)
[2016-12-06] MEDS: Insulin GLARGINE(*) 1 UNITS UNIT SUBCUT SCH (20:49)
[2016-12-06] MEDS: Senna TAB PO SCH (20:50)
[2016-12-07] MEDS: Insulin LISPRO* 1 UNITS UNIT SUBCUT SCH ×3 (08:52→17:50)
[2016-12-07] MEDS: glipiZIDE TAB* 5 MG PO SCH ×2 (08:53→17:43)
[2016-12-07] MEDS: Lisinopril TAB* 10 MG PO SCH (08:53)
[2016-12-07] MEDS: amLODIPine TAB* 5 MG PO SCH (08:53)
[2016-12-07] MEDS: Docusate CAP* 100 MG PO SCH ×2 (08:53→21:29)
[2016-12-07] MEDS: Clopidogrel TAB* 75 MG PO SCH (08:53)
[2016-12-07] MEDS: Aspirin EC TAB* 325 MG PO SCH (08:53)
[2016-12-07] MEDS: FLUoxetine CAP* 20 MG PO SCH (08:53)
[2016-12-07] MEDS ORDERED: cloNIDine TAB* 0.1 MG PO ONE (12:58)
[2016-12-07] MEDS: cloNIDine TAB* 0.1 MG PO SCH (14:52)
[2016-12-07] MEDS ORDERED: glipiZIDE TAB* 5 MG PO ONE (17:33)
[2016-12-07] MEDS: Atorvastatin* 80 MG TAB PO SCH (17:37)
[2016-12-07] MEDS ORDERED: Insulin GLARGINE(*) 1 UNITS UNIT SUBCUT SCH (21:00)
[2016-12-07] MEDS: Enoxaparin(*) 30 MG/0.3 ML SYR SUBCUT SCH (21:25)
[2016-12-07] MEDS: Senna TAB PO SCH (21:29)
[2016-12-08] MEDS: Insulin LISPRO* 1 UNITS UNIT SUBCUT SCH ×3 (09:28→17:16)
[2016-12-08] MEDS: FLUoxetine CAP* 20 MG PO SCH (09:28)
[2016-12-08] MEDS: Lisinopril TAB* 10 MG PO SCH (09:29)
[2016-12-08] MEDS: Docusate CAP* 100 MG PO SCH ×2 (09:29→21:24)
[2016-12-08] MEDS: amLODIPine TAB* 5 MG PO SCH (09:29)
[2016-12-08] MEDS: Clopidogrel TAB* 75 MG PO SCH (09:29)
[2016-12-08] MEDS: cloNIDine TAB* 0.1 MG PO SCH ×2 (09:29→21:24)
[2016-12-08] MEDS: glipiZIDE TAB* 5 MG PO SCH ×2 (09:29→17:16)
[2016-12-08] MEDS: Aspirin EC TAB* 325 MG PO SCH (09:29)
[2016-12-08] MEDS: Atorvastatin* 80 MG TAB PO SCH (17:16)
[2016-12-08] MEDS: Senna TAB PO SCH (21:24)
[2016-12-08] MEDS: Enoxaparin(*) 30 MG/0.3 ML SYR SUBCUT SCH (21:25)
[2016-12-08] MEDS: Insulin GLARGINE(*) 1 UNITS UNIT SUBCUT SCH (21:25)
[2016-12-09] MEDS: Aspirin EC TAB* 325 MG PO SCH (08:51)
[2016-12-09] MEDS: glipiZIDE TAB* 5 MG PO SCH ×2 (08:52→17:25)
[2016-12-09] MEDS: FLUoxetine CAP* 20 MG PO SCH (08:52)
[2016-12-09] MEDS: amLODIPine TAB* 5 MG PO SCH (08:52)
[2016-12-09] MEDS: Lisinopril TAB* 10 MG PO SCH (08:52)
[2016-12-09] MEDS: Docusate CAP* 100 MG PO SCH ×2 (08:52→21:14)
[2016-12-09] MEDS: Clopidogrel TAB* 75 MG PO SCH (08:52)
[2016-12-09] MEDS: cloNIDine TAB* 0.1 MG PO SCH ×2 (08:52→21:20)
[2016-12-09] MEDS: Insulin LISPRO* 1 UNITS UNIT SUBCUT SCH ×3 (08:53→17:26)
[2016-12-09] MEDS: Atorvastatin* 80 MG TAB PO SCH (17:25)
[2016-12-09] MEDS: Insulin GLARGINE(*) 1 UNITS UNIT SUBCUT SCH (21:09)
[2016-12-09] MEDS: Enoxaparin(*) 30 MG/0.3 ML SYR SUBCUT SCH (21:10)
[2016-12-09] MEDS: Senna TAB PO SCH (21:14)
[2016-12-10] MEDS: Lisinopril TAB* 10 MG PO SCH (08:42)
[2016-12-10] MEDS: glipiZIDE TAB* 5 MG PO SCH ×2 (08:42→17:16)
[2016-12-10] MEDS: Aspirin EC TAB* 325 MG PO SCH (08:42)
[2016-12-10] MEDS: amLODIPine TAB* 5 MG PO SCH (08:42)
[2016-12-10] MEDS: cloNIDine TAB* 0.1 MG PO SCH ×2 (08:42→21:06)
[2016-12-10] MEDS: Clopidogrel TAB* 75 MG PO SCH (08:42)
[2016-12-10] MEDS: FLUoxetine CAP* 20 MG PO SCH (08:43)
[2016-12-10] MEDS: Docusate CAP* 100 MG PO SCH ×2 (08:43→21:07)
[2016-12-10] MEDS: Insulin LISPRO* 1 UNITS UNIT SUBCUT SCH ×3 (08:44→17:16)
[2016-12-10] MEDS: Atorvastatin* 80 MG TAB PO SCH (17:16)
[2016-12-10] MEDS: Insulin GLARGINE(*) 1 UNITS UNIT SUBCUT SCH (21:06)
[2016-12-10] MEDS: Senna TAB PO SCH (21:06)
[2016-12-10] MEDS: Enoxaparin(*) 30 MG/0.3 ML SYR SUBCUT SCH (21:06)
[2016-12-11] MEDS: Insulin LISPRO* 1 UNITS UNIT SUBCUT SCH ×3 (08:21→17:53)
[2016-12-11] MEDS: glipiZIDE TAB* 5 MG PO SCH ×2 (08:23→17:04)
[2016-12-11] MEDS: amLODIPine TAB* 5 MG PO SCH (08:23)
[2016-12-11] MEDS: FLUoxetine CAP* 20 MG PO SCH (08:23)
[2016-12-11] MEDS: Aspirin EC TAB* 325 MG PO SCH (08:23)
[2016-12-11] MEDS: Clopidogrel TAB* 75 MG PO SCH (08:23)
[2016-12-11] MEDS: Lisinopril TAB* 10 MG PO SCH (08:23)
[2016-12-11] MEDS: cloNIDine TAB* 0.1 MG PO SCH ×2 (08:23→20:58)
[2016-12-11] MEDS: Docusate CAP* 100 MG PO SCH ×2 (08:26→20:58)
[2016-12-11] MEDS: Atorvastatin* 80 MG TAB PO SCH (17:04)
[2016-12-11] MEDS: Enoxaparin(*) 30 MG/0.3 ML SYR SUBCUT SCH (20:57)
[2016-12-11] MEDS: Insulin GLARGINE(*) 1 UNITS UNIT SUBCUT SCH (20:57)
[2016-12-11] MEDS: Senna TAB PO SCH (20:58)
[2016-12-12] MEDS: cloNIDine TAB* 0.1 MG PO SCH ×2 (08:18→21:37)
[2016-12-12] MEDS: amLODIPine TAB* 5 MG PO SCH (08:18)
[2016-12-12] MEDS: Aspirin EC TAB* 325 MG PO SCH (08:18)
[2016-12-12] MEDS: FLUoxetine CAP* 20 MG PO SCH (08:19)
[2016-12-12] MEDS: glipiZIDE TAB* 5 MG PO SCH ×2 (08:19→17:12)
[2016-12-12] MEDS: Lisinopril TAB* 10 MG PO SCH (08:19)
[2016-12-12] MEDS: Clopidogrel TAB* 75 MG PO SCH (08:19)
[2016-12-12] MEDS: Insulin LISPRO* 1 UNITS UNIT SUBCUT SCH ×3 (08:30→17:12)
[2016-12-12] MEDS: Docusate CAP* 100 MG PO SCH ×2 (09:07→21:37)
[2016-12-12] MEDS: Acetaminophen TAB* 325 MG PO PRN ×2 (09:45→16:45)
--- NOTE | 2016-12-12 12:38 | PMRUTEAM ---
PMRU: Goals Current Status: Nursing: Current Status Skin Deviations [Bilateral Other Groin] Skin Deviation Description [ healing Bilateral Groin] Bladder Current Status pt using urinal overnight, to bathroom during day Bowel Current Status last bm 12/11 Nutrition Current Status excellent Physical Therapy: Current Status Bed Mobility Assistance Supervision,Contact Guard Assist,Min Assist Transfer Moblility Assistance Contact Guard Assist,Min Assist Transfer/Bed Mobility Honorio Walker Recommended Devices Transfer Mobility Comment pt. very unsteady and unsafe Ambulation Assistance Contact Guard Assist Ambulation Assistive Devices Honorio Walker Number of Feet Patient 150' Ambulated Ambulation Comment min with honorio-cane and cg to min with platform 2 w /w. Stairs Assistance Supervision,Contact Guard Assist Stairs Recommended Devices Two Rails Number of Stairs 5 Curb Not Tested Manual Wheelchair Control/ Bilateral LE's Technique Wheelchair Propulsion Ability Standby Assistance,Minimum Assistance Wheelchair Distance (ft) 150 Objective Comments patient has difficulty with placement and avoidance of LLE in completion of w/c mobility with BLE. Occupational Therapy: Current Status Upper Body Dressing Supervision Lower Body Dressing Mod Assist Bathing Mod Assist Toileting Contact Guard Assist Toilet Transfer Contact Guard Assist Shower Transfer Min Assist Eating Independent Instrumental ADL n/a Rec Therapy: Current Status Summary of Assessment and RT assessment complete and pt. is aware of RT Clinical Impression services. Pt. was open to conversation, talkative and pleasant throughout. Treatment Goals Pt. will engage in leisure activities while on the unit. Treatment Plan Provide RT services and encourage involvement. Social Work: Current Status Discharge Plan return home with home care svs and family support Potential for Family Training pt's son is involved and supportive Anticipated Discharge Home Destination Discharge With Return home with homecare services and family support Nutrition: Current Status Monitoring BG control is improving overall, with fewer highs / lows. BG in 90-140s past 24 hrs, with excursion to 232 yesterday. Noted Glipizide has been decreased to 5 mg/day from 10 mg/day. Visited pt 12/10 to provide education when son present as requested. When son arrived, son stated he only wanted a grocery list of appropriate items for pt for when he comes home. Pt eating lunch and did not participate in the (brief) discussion. Asked pt if he had any questions/concerns and pt stated no. Per d/w RN, pt's BG being closely monitored and appropriate insulin ratio being followed to promote tighter BG control. Per RN, pt does not want to perform carb counting at home, but plan for home management has not yet been determined. Will follow and remain available for teaching closer to d/c date when plan for home DM management has been determined. Pt otherwise doing well - eating adequately independently without difficulty per observation @ L today. Last BM 12/09 . Speech: Current Status Assessment The patient presented with improvements with problem solving/safety awareness during functional tasks per patient performance and OT/PT reports. No further skilled SPEECH COMMUNICATION PROFESSOR services warranted at this time as the patient has achieved all goals. Goals: Physical Therapy: Initial Goals Bed Mobility Assistance Independent Transfer Mobility Assistance Independent Transfer/Bed Mobility Large Base Quad Cane Recommended Devices Ambulation Independent Ambulation Recommended Devices Large Base Quad Cane Ambulation Distance 150 Stairs Assistance Independent Stair Recommended Devices One Rail Number of Stairs 12 Physical Therapy: Updated Goals Bed Mobility Assistance Independent Transfer Mobility Assistance Independent Transfer/Bed Mobility Large Base Quad Cane Recommended Devices Ambulation Assistance Independent Ambulation Assistive Devices Large Base Quad Cane Ambulation Distance (ft) 150 Stairs Assistance Independent Stairs Recommended Devices One Rail Number of Stairs 12 Home Exercise Program Independent Assistance Occupational Therapy: Initial Goals Goals to be Completed in (Days 14 ) Upper Body Bathing Routine Modified Independent with Lower Body Bathing Routine Supervision/Set Up Upper Body Dressing Routine Modified Independent with Lower Body Dressing Routine Modified Independent with Toilet Hygeine and Clothing Modified Independent with Management Routine Toilet Transfer Routine Modified Independent with Step-In Shower Transfer Supervision/Set Up Routine Tub Transfer Routine Supervision/Set Up Functional Transfers for ADL Modified Independent with Grooming Routine Independent Feeding Routine Independent Nutrition: Goals Intervention Goals 1. Intake will remain adequate to maintain UBW 2. BG control will improve; no hypo/hyperglycemia 3. Pt will maintain regular bowel pattern 4. Plan re: home DM management will be determined prior to d/c; education provided as needed 5. skin will remain intact without open areas Speech: Goals Goal 1 Comments Long-Term Goal: The patient will demonstrate the ability to demonstrate appropriate problem solving/ safety awareness to the [id number] for success with daily, functional activities, with independent use of compensatory strategies, as needed. Goal achieved 12/07/16 Short-Term Goal: The patient will complete ongoing assesment of functional problem solving/safety awareness skills for daily, functional physical activities, in conjunction with occupational and/or physical therapy sessions. Status: The patient was seen during PT and OT sessions this date, where the patient demonstrated functional safety awareness and problem solving for daily, functional physical activities. The patient requested rest breaks when walking, had good awareness of left leg when walking with verbal cues from PT, safety awareness when dressing with OT with verbal cues for use of equiptment and followed directions for therapeutic tasks. PT and OT reported improvements with problem solving and safety awareness from previous date. No further skilled SPEECH COMMUNICATION PROFESSOR servives at this time. Social Work: Goals Discharge Plan return home with home care svs and family support Potential for Family Training pt's son is involved and supportive Anticipated Discharge Home Destination Discharge With Return home with homecare services and family support Care Plan: Care Plan ADL's - Improve/Maintain Start: 12/04/16 21:42 Freq: QSHIFT Status: Active Target: Activity Type Activity Date Activity User E-Sign Co-Sign Detail Recorded Client Recorded Date Recorded By Document 12/11/16 15:15 [id number] 12/11/16 15:16 [id number] 12/11/16 15:15 PMRU Outcome: ADL's/ADL Transfers Orders/Interventions Occupational Therapy Evaluation & Treatment Communication Tool in Patient Room Device Yes: platform walker. Patient to receive OT 5x/wk for 60-120 Therex min/day Self Care Management Group Therapy Neuromuscular ReEducation UE/LE ADL's with Assist Yes ADL Transfers with Assist Yes Toileting: Transfers,Clothing Management Yes ,Hygeine w/Assist Light Kitchen/Laundry w/Assist Yes Progression Toward Outcome/Goals Progressing Outcome/Goals Met Pt. completed ADL routine at same level as prior sessions. Pt. able to move LUE for elbow flexion/ extension and pronation/ supination when not against gravity. Cardiovascular- Improve/Maintain Start: 12/04/16 21:42 Freq: QSHIFT Status: Active Target: Activity Type Activity Date Activity User E-Sign Co-Sign Detail Recorded Client Recorded Date Recorded By Document 12/12/16 09:02 [id number] [id number] 12/12/16 09:03 [id number] 12/12/16 09:02 PMRU Outcome: Cardiovascular Vital Signs q Shift for 48hrs Then BID Yes Daily Weight Ordered No Current Cardiovascular Outcome/Goal Maintain/ Achieve Baseline HR, BP , Perfusion Improve HR Within Prescribed Parameters Maintain/ Improve Perfusion Maintain/ Achieve Hemodynamic Stability Free of Abnormal Cardiac Symptoms Progression Toward Outcome/Goal Progressing Communication-Improve/Maintain Start: 12/04/16 21:42 Freq: QSHIFT Status: Active Target: Activity Type Activity Date Activity User E-Sign Co-Sign Detail Recorded Client Recorded Date Recorded By Document 12/11/16 23:32 [id number] 12/11/16 23:34 [id number] 12/11/16 23:32 PMRU Outcome: Communication/Cognitive Status Outcome/Goals Makes Needs Known Effectively Progression Toward Outcomes/Goals Progressing Coping/Psych-Improve/Maintain Start: 12/04/16 21:42 Freq: QSHIFT Status: Complete Target: Activity Type Activity Date Activity User E-Sign Co-Sign Detail Recorded Client Recorded Date Recorded By Document 12/08/16 18:42 [id number] 12/08/16 18:46 [id number] 12/08/16 18:42 PMRU Outcome: Coping/Psychosocial Coping Outcome/Goals Verbalization of Acceptance of Rehab Admit Verbalization of Sense of Control Over Health Status Utilization of Appropriate Problem Solving Techniques Willingness to Participate in Treatment Plan and Basic Needs Utilization of Available Support Systems Absence of Destructive Behavior to Self/Others Psychosocial Outcome/Goals Maintain/ Improve Emotional Health Demonstrates Knowledge of Healthy Coping Mechanisms Available Cooperate/ Participate in Plan Coping Outcome/Goals Met Demonstrates Understanding of Rehab Admit and Goal Setting Process Recognizes/Uses Appropriate Resources That Can Assist With Adjustment Psychosocial Outcome/Goals Met Maintain/ Improved Emotional Health Cooperate/ Participated in Plan DVT Prophylaxis- Improve/Maintain Start: 12/04/16 21:42 Freq: QSHIFT Status: Complete Target: Activity Type Activity Date Activity User E-Sign Co-Sign Detail Recorded Client Recorded Date Recorded By Document 12/08/16 18:42 [id number] 12/08/16 18:46 [id number] 12/08/16 18:42 PMRU Outcome: DVT Prophylaxis Outcome/Goals Remains Free of DVT Complies with DVT Prophylaxis /Treatment Demonstrates Knowledge of DVT Prevention/ Treatment TEDS Stockings on Every AM, Off at HS Outcome/Goals Met Remains Free of DVT TEDS Stockings on Every AM, Off at HS Discharge Planning - Improve/Maintain Start: 12/04/16 21:42 Freq: QSHIFT Status: Active Target: Activity Type Activity Date Activity User E-Sign Co-Sign Detail Recorded Client Recorded Date Recorded By Document 12/11/16 23:32 [id number] [email or web address] 12/11/16 23:34 [id number] 12/11/16 23:32 PMRU Outcome: Discharge Planning Identify Patient Needs yes Update Patient Family No Outcome/Goals Demonstrates Understanding of Discharge Plan Homecare Referral - See Comment Progression Toward Outcome/Goals Progressing Education-Improve/Maintain Start: 12/04/16 21:42 Freq: QSHIFT Status: Active Target: Activity Type Activity Date Activity User E-Sign Co-Sign Detail Recorded Client Recorded Date Recorded By Document 12/12/16 09:02 [id number] [email or web address] 12/12/16 09:03 [id number] 12/12/16 09:02 PMRU Outcome: Education Outcome/Goals Demonstrate/ Verbalize Understanding of Written Discharge Instructions Demonstrates Skills Encourage Questions Progression Toward Outcome/Goals Progressing /GI-Improve/Maintain Start: 12/04/16 21:42 Freq: QSHIFT Status: Active Target: Activity Type Activity Date Activity User E-Sign Co-Sign Detail Recorded Client Recorded Date Recorded By Document 12/12/16 09:02 [id number] 12/12/16 09:03 [id number] 12/12/16 09:02 PMRU Outcome: Genitourinary/ Gastrointestinal Genitourinary- Outcome/Goals Maintain/ Achieve Urinary Continence Maintain/ Achieve Adequate Urinary Output Gastrointestinal-Outcome/Goals Maintain/ Achieve Bowel Regularity in Accordance with Pt's Baseline Remain Free of Emesis Prevent Constipation Laxatives as Ordered Other Outcome/Goals Pt states he does not want to take Colace anymore Progression Toward Outcome/Goals - Progressing Progression Toward Outcome/Goals - GI Progressing Outcome/Goals Met Comment pt stand pivate to toilet Medication Administration Start: 12/04/16 21:42 Freq: QSHIFT Status: Active Target: Activity Type Activity Date Activity User E-Sign Co-Sign Detail Recorded Client Recorded Date Recorded By Document 12/12/16 09:02 [id number] 12/12/16 09:03 [id number] 12/12/16 09:02 PMRU Outcome: Medication Administration Assess Patient Knowledge/Teach Med No Education for all Meds Outcome/Goals Patient Independent with Medication Administration at Home Demonstrates Understanding Demonstrates Lovenox Administration Progression Towards Outcome/Goals Progressing Is Patient Going Home on Lovenox? Yes If Patient is Going Home on Lovenox, Who unsure whether Will Administer pt is going home on lovenox Metabolic Status- Improve/Maintain Start: 12/04/16 21:42 Freq: QSHIFT Status: Active Target: Activity Type Activity Date Activity User E-Sign Co-Sign Detail Recorded Client Recorded Date Recorded By Document 12/12/16 09:02 [id number] [email or web address] 12/12/16 09:03 [id number] 12/12/16 09:02 PMRU Outcome: Metabolic Status Have Fingersticks Been Ordered Yes Fingerstick Order Frequency AC & HS Outcome/Goals Maintain/ Improve Metabolic Status Demonstrate Knowledge of Prevention/ Treatment of Metabolic Imbalances Other Outcome/Goals BS managed better thus far this shift Progression Toward Outcome/Goals Progressing Mobility- Improve/Maintain Start: 12/04/16 15:04 Freq: QSHIFT Status: Active Target: Activity Type Activity Date Activity User E-Sign Co-Sign Detail Recorded Client Recorded Date Recorded By Document 12/11/16 12:14 [id number] [email or web address] 12/11/16 12:15 [id number] 12/11/16 12:14 PMRU Outcome: Mobility Physical Therapy Evaluation and Yes Treatment Activity OOB with Assistance Yes WBAT Yes NWB No TTWB No Device Yes: hemiwalker Assistance Yes: min a Patient to be seen 5x/wk for 60-120 min/ Therex day for: Mobility Training Gait Training Balance Outcome/Goals Maintain/ Achieve Baseline Mobility Status Improve Mobility Status Demonstrates Proper Use of Assistive Devices Free from Complications of Immobility Progression Toward Outcome/Goals Progressing Bed Mobility Yes: independent Transfers Yes: independent Gait x ft Yes: mod independent with hemiwalker , quad cane W/C Mobility x ft No Up/Down Stairs Yes: sup with rail 12 steps With HEP Yes: independent Neurological- Improve/Maintain Start: 12/04/16 21:42 Freq: QSHIFT Status: Active Target: Activity Type Activity Date Activity User E-Sign Co-Sign Detail Recorded Client Recorded Date Recorded By Document 12/12/16 09:02 [id number] 12/12/16 09:03 [id number] 12/12/16 09:02 PMRU Outcome: Neurological Weakness/Aphasia Weakness Left Side Outcome/Goals Improve Neurological Status Prevent Avoidable Neurological Decline Demonstrate Knowledge of Prevention/Tx of Neuro Disorders/ Complication Maintain/ Improve Strength/ROM Other Outcome/Goals Isotoner glove L hand Progression Toward Outcome/Goals Progressing Respiratory - Improve/Maintain Start: 12/04/16 21:42 Freq: QSHIFT Status: Complete Target: Activity Type Activity Date Activity User E-Sign Co-Sign Detail Recorded Client Recorded Date Recorded By Document 12/08/16 18:42 [id number] [email or web address] 12/08/16 18:46 [id number] 12/08/16 18:42 PMRU Outcome: Respiratory Does Patient Have a Trach No Outcome/Goals Maintain/ Improve O2 Sat per MD Order Maintain/ Improve Baseline Respiratory Status Maintain/ Improve Activity Tolerance Prevent Pneumonia/ Atelectasis Remain Aspiration Free Outcome/Goals Met Maintain/ Improve O2 Sat per MD Order Maintain/ Improve Activity Tolerance Prevent Pneumonia/ Atelectasis Remain Aspiration Free Safety- Improve/Maintain Start: 12/04/16 21:42 Freq: QSHIFT Status: Active Target: Activity Type Activity Date Activity User E-Sign Co-Sign Detail Recorded Client Recorded Date Recorded By Document 12/12/16 09:02 [id number] 12/12/16 09:03 [id number] 12/12/16 09:02 PMRU Outcome: Safety Outcome/Goals Remain Free of Injury or Harm Cooperates with Safety Measures for Least Restrictive Environment Prevent Falls/ Injury Equipment Needed Other Outcome/Goals PA in place, using CB appropriately Progression Toward Outcome/Goals Progressing Skin- Improve/Maintain Start: 12/04/16 21:42 Freq: QSHIFT Status: Active Target: Activity Type Activity Date Activity User E-Sign Co-Sign Detail Recorded Client Recorded Date Recorded By Document 12/12/16 09:02 [id number] 12/12/16 09:03 [id number] 12/12/16 09:02 PMRU Outcome: Skin Skin Risk Level Low Skin Orders Turn/Position q2hr While in Bed Outcome/Goals Maintain/ Improve Skin Intergrity Free from Decubitus Progression Toward Outcome/Goals Progressing Outcome/Goals Met Comment pt repositions himself Medicine Note: Length of Stay: 1 week Anticipated Discharge Destination: Home Tentative Discharge Date: 12/19/16 Discharged to: home/TBD
[2016-12-12] MEDS: Atorvastatin* 80 MG TAB PO SCH (17:12)
[2016-12-12] MEDS: Senna TAB PO SCH (21:36)
[2016-12-12] MEDS: Enoxaparin(*) 30 MG/0.3 ML SYR SUBCUT SCH (21:37)
[2016-12-12] MEDS: Insulin GLARGINE(*) 1 UNITS UNIT SUBCUT SCH (21:39)
[2016-12-13 06:06] LABS: Hematocrit 40 % (42-52); Mean Corpuscular HGB Conc 33 g/dl (31-36); Mean Corpuscular Hemoglobin 26 pg (27-31); Mean Corpuscular Volume 79 fL (80-94); Mean Platelet Volume 9 um3 (7.4-10.4); Red Blood Count 5.02 10^6/ul (4.0-5.4); Red Cell Distribution Width 13 % (10.5-15); White Blood Count 9.2 10^3/ul (3.5-10.8)
[2016-12-13 06:24] LABS: Albumin 3.4 g/dL (3.2-5.2); BUN/Creatinine Ratio 25.3 (8-20); Calcium 9.1 mg/dL (8.6-10.3); EGFR African American 50.1 (>60); EGFR Non-African American 38.9 (>60); Globulin 3.1 g/dL (2-4); Total Bilirubin 0.3 mg/dL (0.2-1.0); Total Protein 6.5 g/dL (6.4-8.9)
[2016-12-13] MEDS: cloNIDine TAB* 0.1 MG PO SCH ×2 (08:43→20:02)
[2016-12-13] MEDS: Aspirin EC TAB* 325 MG PO SCH (08:43)
[2016-12-13] MEDS: amLODIPine TAB* 5 MG PO SCH (08:43)
[2016-12-13] MEDS: Docusate CAP* 100 MG PO SCH ×2 (08:43→19:53)
[2016-12-13] MEDS: glipiZIDE TAB* 5 MG PO SCH ×2 (08:43→17:00)
[2016-12-13] MEDS: FLUoxetine CAP* 20 MG PO SCH (08:43)
[2016-12-13] MEDS: Clopidogrel TAB* 75 MG PO SCH (08:43)
[2016-12-13] MEDS: Lisinopril TAB* 10 MG PO SCH (08:43)
[2016-12-13] MEDS: Insulin LISPRO* 1 UNITS UNIT SUBCUT SCH ×3 (08:45→17:31)
[2016-12-13] MEDS: Atorvastatin* 80 MG TAB PO SCH (17:01)
[2016-12-13] MEDS: Senna TAB PO SCH (19:53)
[2016-12-13] MEDS: Enoxaparin(*) 30 MG/0.3 ML SYR SUBCUT SCH (20:02)
[2016-12-13] MEDS: Insulin GLARGINE(*) 1 UNITS UNIT SUBCUT SCH (20:52)
[2016-12-14] MEDS: Insulin LISPRO* 1 UNITS UNIT SUBCUT SCH ×3 (10:00→17:23)
[2016-12-14] MEDS: Lisinopril TAB* 10 MG PO SCH (10:02)
[2016-12-14] MEDS: Clopidogrel TAB* 75 MG PO SCH (10:02)
[2016-12-14] MEDS: glipiZIDE TAB* 5 MG PO SCH ×2 (10:02→17:23)
[2016-12-14] MEDS: FLUoxetine CAP* 20 MG PO SCH (10:02)
[2016-12-14] MEDS: Docusate CAP* 100 MG PO SCH ×2 (10:02→21:03)
[2016-12-14] MEDS: amLODIPine TAB* 5 MG PO SCH (10:02)
[2016-12-14] MEDS: Aspirin EC TAB* 325 MG PO SCH (10:53)
[2016-12-14] MEDS: cloNIDine TAB* 0.1 MG PO SCH ×2 (10:54→21:02)
[2016-12-14] MEDS: Atorvastatin* 80 MG TAB PO SCH (17:23)
[2016-12-14] MEDS: Enoxaparin(*) 30 MG/0.3 ML SYR SUBCUT SCH (21:02)
[2016-12-14] MEDS: Senna TAB PO SCH (21:03)
[2016-12-14] MEDS: Insulin GLARGINE(*) 1 UNITS UNIT SUBCUT SCH (21:05)
[2016-12-15] MEDS: glipiZIDE TAB* 5 MG PO SCH ×2 (08:25→17:08)
[2016-12-15] MEDS: Lisinopril TAB* 10 MG PO SCH (08:25)
[2016-12-15] MEDS: Clopidogrel TAB* 75 MG PO SCH (08:25)
[2016-12-15] MEDS: amLODIPine TAB* 5 MG PO SCH (08:25)
[2016-12-15] MEDS: FLUoxetine CAP* 20 MG PO SCH (08:25)
[2016-12-15] MEDS: Insulin LISPRO* 1 UNITS UNIT SUBCUT SCH ×3 (08:26→17:39)
[2016-12-15] MEDS: Docusate CAP* 100 MG PO SCH ×2 (08:33→22:00)
[2016-12-15] MEDS: Aspirin EC TAB* 325 MG PO SCH (08:35)
[2016-12-15] MEDS: cloNIDine TAB* 0.1 MG PO SCH ×2 (08:35→22:00)
[2016-12-15] MEDS: Atorvastatin* 80 MG TAB PO SCH (17:08)
[2016-12-15] MEDS: Insulin GLARGINE(*) 1 UNITS UNIT SUBCUT SCH (21:59)
[2016-12-15] MEDS: Enoxaparin(*) 30 MG/0.3 ML SYR SUBCUT SCH (21:59)
[2016-12-15] MEDS: Senna TAB PO SCH (22:00)
[2016-12-16] MEDS: Lisinopril TAB* 10 MG PO SCH (09:48)
[2016-12-16] MEDS: FLUoxetine CAP* 20 MG PO SCH (09:48)
[2016-12-16] MEDS: Aspirin EC TAB* 325 MG PO SCH (09:48)
[2016-12-16] MEDS: glipiZIDE TAB* 5 MG PO SCH ×2 (09:48→17:38)
[2016-12-16] MEDS: amLODIPine TAB* 5 MG PO SCH (09:49)
[2016-12-16] MEDS: cloNIDine TAB* 0.1 MG PO SCH ×2 (09:49→20:52)
[2016-12-16] MEDS: Clopidogrel TAB* 75 MG PO SCH (09:49)
[2016-12-16] MEDS: Insulin LISPRO* 1 UNITS UNIT SUBCUT SCH ×3 (09:50→17:40)
[2016-12-16] MEDS: Docusate CAP* 100 MG PO SCH ×2 (09:51→23:11)
[2016-12-16] MEDS: Atorvastatin* 80 MG TAB PO SCH (17:38)
[2016-12-16] MEDS: Enoxaparin(*) 30 MG/0.3 ML SYR SUBCUT SCH (20:52)
[2016-12-16] MEDS: Insulin GLARGINE(*) 1 UNITS UNIT SUBCUT SCH (20:54)
[2016-12-16] MEDS: Senna TAB PO SCH (23:11)
[2016-12-17] MEDS: FLUoxetine CAP* 20 MG PO SCH (08:12)
[2016-12-17] MEDS: Aspirin EC TAB* 325 MG PO SCH (08:12)
[2016-12-17] MEDS: Lisinopril TAB* 10 MG PO SCH (08:12)
[2016-12-17] MEDS: glipiZIDE TAB* 5 MG PO SCH ×2 (08:13→16:34)
[2016-12-17] MEDS: Clopidogrel TAB* 75 MG PO SCH (08:13)
[2016-12-17] MEDS: amLODIPine TAB* 5 MG PO SCH (08:13)
[2016-12-17] MEDS: cloNIDine TAB* 0.1 MG PO SCH ×2 (08:13→20:45)
[2016-12-17] MEDS: Docusate CAP* 100 MG PO SCH ×2 (08:14→22:14)
[2016-12-17] MEDS: Insulin LISPRO* 1 UNITS UNIT SUBCUT SCH ×3 (08:17→17:46)
[2016-12-17] MEDS: Atorvastatin* 80 MG TAB PO SCH (16:34)
[2016-12-17] MEDS: Insulin GLARGINE(*) 1 UNITS UNIT SUBCUT SCH (20:46)
[2016-12-17] MEDS: Enoxaparin(*) 30 MG/0.3 ML SYR SUBCUT SCH (20:47)
[2016-12-17] MEDS: Senna TAB PO SCH (22:14)
[2016-12-18] MEDS: Clopidogrel TAB* 75 MG PO SCH (08:28)
[2016-12-18] MEDS: Aspirin EC TAB* 325 MG PO SCH (08:28)
[2016-12-18] MEDS: glipiZIDE TAB* 5 MG PO SCH ×2 (08:28→17:37)
[2016-12-18] MEDS: amLODIPine TAB* 5 MG PO SCH (08:28)
[2016-12-18] MEDS: Docusate CAP* 100 MG PO SCH ×2 (08:28→21:37)
[2016-12-18] MEDS: FLUoxetine CAP* 20 MG PO SCH (08:28)
[2016-12-18] MEDS: cloNIDine TAB* 0.1 MG PO SCH ×2 (08:28→21:36)
[2016-12-18] MEDS: Lisinopril TAB* 10 MG PO SCH (08:28)
[2016-12-18] MEDS: Insulin LISPRO* 1 UNITS UNIT SUBCUT SCH ×3 (09:15→17:38)
[2016-12-18] MEDS: Atorvastatin* 80 MG TAB PO SCH (17:37)
[2016-12-18] MEDS: Senna TAB PO SCH (21:37)
[2016-12-18] MEDS: Enoxaparin(*) 30 MG/0.3 ML SYR SUBCUT SCH (21:38)
[2016-12-18] MEDS: Insulin GLARGINE(*) 1 UNITS UNIT SUBCUT SCH (21:40)
[2016-12-19] MEDS: FLUoxetine CAP* 20 MG PO SCH (08:29)
[2016-12-19] MEDS: cloNIDine TAB* 0.1 MG PO SCH ×2 (08:29→21:13)
[2016-12-19] MEDS: Lisinopril TAB* 10 MG PO SCH (08:29)
[2016-12-19] MEDS: amLODIPine TAB* 5 MG PO SCH (08:30)
[2016-12-19] MEDS: Insulin LISPRO* 1 UNITS UNIT SUBCUT SCH ×3 (08:30→17:25)
[2016-12-19] MEDS: glipiZIDE TAB* 5 MG PO SCH ×2 (08:30→16:50)
[2016-12-19] MEDS: Aspirin EC TAB* 325 MG PO SCH (08:30)
[2016-12-19] MEDS: Clopidogrel TAB* 75 MG PO SCH (08:34)
[2016-12-19] MEDS: Docusate CAP* 100 MG PO SCH ×2 (08:35→21:13)
--- NOTE | 2016-12-19 12:28 | PMRUTEAM ---
PMRU: Goals Current Status: Nursing: Current Status Skin Deviations [Bilateral Other Groin] Skin Deviation Description [ no redness noted Bilateral Groin] Bladder Current Status pt using urinal overnight, to bathroom during day Bowel Current Status last bm 12/11 Nutrition Current Status excellent Physical Therapy: Current Status Bed Mobility Assistance Supervision Transfer Moblility Assistance Supervision Transfer/Bed Mobility Straight Cane Recommended Devices Transfer Mobility Comment pt. very unsteady and unsafe Ambulation Assistance Supervision Ambulation Assistive Devices Straight Cane Number of Feet Patient 100' x 2 Ambulated Ambulation Comment min with regulo-cane and cg to min with platform 2 w /w. Stairs Assistance Supervision,Contact Guard Assist Stairs Recommended Devices One Rail Number of Stairs 10 Curb Not Tested Manual Wheelchair Control/ Bilateral LE's Technique Wheelchair Propulsion Ability Standby Assistance,Minimum Assistance Wheelchair Distance (ft) 150 Objective Comments patient has difficulty with placement and avoidance of LLE in completion of w/c mobility with BLE. Occupational Therapy: Current Status Upper Body Dressing Supervision Lower Body Dressing Max Asst,Total Assist Bathing Mod Assist Toileting Mod Assist Toilet Transfer Contact Guard Assist Shower Transfer Contact Guard Assist,Min Assist Eating Independent Instrumental ADL n/a Rec Therapy: Current Status Summary of Assessment and RT assessment complete and pt. is aware of RT Clinical Impression services. Pt. was open to conversation, talkative and pleasant throughout. Treatment Goals Pt. will engage in leisure activities while on the unit. Treatment Plan Provide RT services and encourage involvement. Social Work: Current Status Discharge Plan return home with home care svs and family support Potential for Family Training pt's son is involved and supportive Anticipated Discharge Home Destination Discharge With Return home with homecare services and family support Nutrition: Current Status Monitoring BG control remains variable, with low of 73 and high of 273 over past 24 hrs. Continues to eat well; meeting needs. Visited pt; pt denies any issues, denies questions re: carb counting. Last BM 12/13. Speech: Current Status Assessment The patient presented with improvements with problem solving/safety awareness during functional tasks per patient performance and OT/PT reports. No further skilled [employer] services warranted at this time as the patient has achieved all goals. Goals: Physical Therapy: Initial Goals Bed Mobility Assistance Independent Transfer Mobility Assistance Independent Transfer/Bed Mobility Large Base Quad Cane Recommended Devices Ambulation Independent Ambulation Recommended Devices Large Base Quad Cane Ambulation Distance 150 Stairs Assistance Independent Stair Recommended Devices One Rail Number of Stairs 12 Physical Therapy: Updated Goals Bed Mobility Assistance Independent Transfer Mobility Assistance Independent Transfer/Bed Mobility Large Base Quad Cane Recommended Devices Ambulation Assistance Independent Ambulation Assistive Devices Large Base Quad Cane Ambulation Distance (ft) 150 Stairs Assistance Independent Stairs Recommended Devices One Rail Number of Stairs 12 Home Exercise Program Independent Assistance Occupational Therapy: Initial Goals Goals to be Completed in (Days 14 ) Upper Body Bathing Routine Modified Independent with Lower Body Bathing Routine Supervision/Set Up Upper Body Dressing Routine Modified Independent with Lower Body Dressing Routine Modified Independent with Toilet Hygeine and Clothing Modified Independent with Management Routine Toilet Transfer Routine Modified Independent with Step-In Shower Transfer Supervision/Set Up Routine Tub Transfer Routine Supervision/Set Up Functional Transfers for ADL Modified Independent with Grooming Routine Independent Feeding Routine Independent Nutrition: Goals Intervention Goals 1. Intake will remain adequate to maintain UBW 2. BG control will improve; no hypo/hyperglycemia 3. Pt will maintain regular bowel pattern 4. Plan re: home DM management will be determined prior to d/c; education provided as needed 5. skin will remain intact without open areas Speech: Goals Goal 1 Comments Long-Term Goal: The patient will demonstrate the ability to demonstrate appropriate problem solving/ safety awareness to the [id number] for success with daily, functional activities, with independent use of compensatory strategies, as needed. Goal achieved 12/07/16 Short-Term Goal: The patient will complete ongoing assesment of functional problem solving/safety awareness skills for daily, functional physical activities, in conjunction with occupational and/or physical therapy sessions. Status: The patient was seen during PT and OT sessions this date, where the patient demonstrated functional safety awareness and problem solving for daily, functional physical activities. The patient requested rest breaks when walking, had good awareness of left leg when walking with verbal cues from PT, safety awareness when dressing with OT with verbal cues for use of equiptment and followed directions for therapeutic tasks. PT and OT reported improvements with problem solving and safety awareness from previous date. No further skilled [employer] servives at this time. Social Work: Goals Discharge Plan return home with home care svs and family support Potential for Family Training pt's son is involved and supportive Anticipated Discharge Home Destination Discharge With Return home with homecare services and family support Care Plan: Care Plan ADL's - Improve/Maintain Start: 12/04/16 21:42 Freq: QSHIFT Status: Active Target: Activity Type Activity Date Activity User E-Sign Co-Sign Detail Recorded Client Recorded Date Recorded By Document 12/18/16 14:28 [id number] 12/18/16 14:29 [id number] 12/18/16 14:28 PMRU Outcome: ADL's/ADL Transfers Orders/Interventions Occupational Therapy Evaluation & Treatment Communication Tool in Patient Room Device Yes: platform walker. Patient to receive OT 5x/wk for 60-120 Therex min/day Self Care Management Group Therapy Neuromuscular ReEducation UE/LE ADL's with Assist Yes ADL Transfers with Assist Yes Toileting: Transfers,Clothing Management Yes ,Hygeine w/Assist Light Kitchen/Laundry w/Assist Yes Progression Toward Outcome/Goals Progressing Outcome/Goals Met Pt. is at same level of assistance for ADL routine. Pt . demonstrated ability to flex L thumb ~30-40 degrees, and can begin a lateral pinch with L thumb. Cardiovascular- Improve/Maintain Start: 12/04/16 21:42 Freq: QSHIFT Status: Active Target: Activity Type Activity Date Activity User E-Sign Co-Sign Detail Recorded Client Recorded Date Recorded By Document 12/19/16 09:40 [id number] [id number] 12/19/16 09:41 [id number] 12/19/16 09:40 PMRU Outcome: Cardiovascular Vital Signs q Shift for 48hrs Then BID Yes Daily Weight Ordered No Current Cardiovascular Outcome/Goal Maintain/ Achieve Hemodynamic Stability Free of Abnormal Cardiac Symptoms Progression Toward Outcome/Goal Progressing Outcome/Goals Met Comment Ongoing elevated blood pressure (see vital signs), no new cardiac symptoms Communication-Improve/Maintain Start: 12/04/16 21:42 Freq: QSHIFT Status: Active Target: Activity Type Activity Date Activity User E-Sign Co-Sign Detail Recorded Client Recorded Date Recorded By Document 12/18/16 23:00 [id number] [email or web address] 12/19/16 01:12 [id number] 12/18/16 23:00 PMRU Outcome: Communication/Cognitive Status Outcome/Goals Makes Needs Known Effectively Progression Toward Outcomes/Goals Progressing Coping/Psych-Improve/Maintain Start: 12/04/16 21:42 Freq: QSHIFT Status: Complete Target: Activity Type Activity Date Activity User E-Sign Co-Sign Detail Recorded Client Recorded Date Recorded By Document 12/14/16 10:52 [id number] 12/14/16 10:54 [id number] 12/14/16 10:52 PMRU Outcome: Coping/Psychosocial Coping Outcome/Goals Verbalization of Acceptance of Rehab Admit Willingness to Participate in Treatment Plan and Basic Needs Psychosocial Outcome/Goals Maintain/ Improve Emotional Health Cooperate/ Participate in Plan DVT Prophylaxis- Improve/Maintain Start: 12/04/16 21:42 Freq: QSHIFT Status: Complete Target: Activity Type Activity Date Activity User E-Sign Co-Sign Detail Recorded Client Recorded Date Recorded By Document 12/14/16 10:52 [id number] [id number] 12/14/16 10:54 [id number] 12/14/16 10:52 PMRU Outcome: DVT Prophylaxis Outcome/Goals Remains Free of DVT Complies with DVT Prophylaxis /Treatment TEDS Stockings on Every AM, Off at HS Progression Toward Outcome/Goals Progressing Discharge Planning - Improve/Maintain Start: 12/04/16 21:42 Freq: QSHIFT Status: Active Target: Activity Type Activity Date Activity User E-Sign Co-Sign Detail Recorded Client Recorded Date Recorded By Document 12/18/16 23:00 [id number] 12/19/16 01:12 [id number] 12/18/16 23:00 PMRU Outcome: Discharge Planning Identify Patient Needs yes Update Patient Family No Outcome/Goals Demonstrates Understanding of Discharge Plan Homecare Referral - See Comment Progression Toward Outcome/Goals Progressing Education-Improve/Maintain Start: 12/04/16 21:42 Freq: QSHIFT Status: Active Target: Activity Type Activity Date Activity User E-Sign Co-Sign Detail Recorded Client Recorded Date Recorded By Document 12/19/16 09:40 [id number] 12/19/16 09:41 [id number] 12/19/16 09:40 PMRU Outcome: Education Outcome/Goals Demonstrate/ Verbalize Understanding of Written Discharge Instructions Demonstrates Skills Encourage Questions Progression Toward Outcome/Goals Progressing Outcome/Goals Met Comment pt aware of and participates in plan of care /GI-Improve/Maintain Start: 12/04/16 21:42 Freq: QSHIFT Status: Complete Target: Activity Type Activity Date Activity User E-Sign Co-Sign Detail Recorded Client Recorded Date Recorded By Document 12/16/16 08:00 [id number] [email or web address] 12/16/16 13:20 [id number] 12/16/16 08:00 PMRU Outcome: Genitourinary/ Gastrointestinal Genitourinary- Outcome/Goals Maintain/ Achieve Urinary Continence Maintain/ Achieve Adequate Urinary Output Gastrointestinal-Outcome/Goals Maintain/ Achieve Bowel Regularity in Accordance with Pt's Baseline Remain Free of Emesis Prevent Constipation Laxatives as Ordered Genitourinary- Outcome/Goals Met Maintain/ Achieve Urinary Continence Gastrointestinal-Outcome/Goals Met Maintain/ Achieve Bowel Regularity in Accordance with Pt's Baseline Prevent Constipation Medication Administration Start: 12/04/16 21:42 Freq: QSHIFT Status: Complete Target: Activity Type Activity Date Activity User E-Sign Co-Sign Detail Recorded Client Recorded Date Recorded By Document 12/17/16 08:00 [id number] 12/17/16 11:15 [id number] 12/17/16 08:00 PMRU Outcome: Medication Administration Assess Patient Knowledge/Teach Med No Education for all Meds Outcome/Goals Patient Independent with Medication Administration at Home Demonstrates Understanding Demonstrates Lovenox Administration Outcome/Goals Met Patient Independent with Medication Administration at Home Demonstrates Understanding Is Patient Going Home on Lovenox? No If Patient is Going Home on Lovenox, Who unsure whether Will Administer pt is going home on lovenox Metabolic Status- Improve/Maintain Start: 12/04/16 21:42 Freq: QSHIFT Status: Complete Target: Activity Type Activity Date Activity User E-Sign Co-Sign Detail Recorded Client Recorded Date Recorded By Document 12/17/16 08:00 [id number] [email or web address] 12/17/16 11:15 [id number] 12/17/16 08:00 PMRU Outcome: Metabolic Status Have Fingersticks Been Ordered Yes Fingerstick Order Frequency AC & HS Outcome/Goals Maintain/ Improve Metabolic Status Demonstrate Knowledge of Prevention/ Treatment of Metabolic Imbalances Outcome/Goals Met Maintain/ Improve Metabolic Status Demonstrate Knowledge of Prevention/ Treatment of Metabolic Imbalances Mobility- Improve/Maintain Start: 12/04/16 15:04 Freq: QSHIFT Status: Active Target: Activity Type Activity Date Activity User E-Sign Co-Sign Detail Recorded Client Recorded Date Recorded By Document 12/14/16 17:29 [id number] [email or web address] 12/14/16 17:29 [id number] 12/14/16 17:29 PMRU Outcome: Mobility Physical Therapy Evaluation and Yes Treatment Activity OOB with Assistance Yes WBAT Yes NWB No TTWB No Device Yes: hemiwalker Assistance Yes: min a Patient to be seen 5x/wk for 60-120 min/ Therex day for: Mobility Training Gait Training Balance Outcome/Goals Maintain/ Achieve Baseline Mobility Status Improve Mobility Status Demonstrates Proper Use of Assistive Devices Free from Complications of Immobility Progression Toward Outcome/Goals Progressing Bed Mobility Yes: independent Transfers Yes: independent Gait x ft Yes: mod independent with hemiwalker , quad cane W/C Mobility x ft No Up/Down Stairs Yes: sup with rail 12 steps With HEP Yes: independent Neurological- Improve/Maintain Start: 12/04/16 21:42 Freq: QSHIFT Status: Active Target: Activity Type Activity Date Activity User E-Sign Co-Sign Detail Recorded Client Recorded Date Recorded By Document 12/19/16 09:40 [id number] 12/19/16 09:41 [id number] 12/19/16 09:40 PMRU Outcome: Neurological Weakness/Aphasia Weakness Left Side Outcome/Goals Improve Neurological Status Prevent Avoidable Neurological Decline Demonstrate Knowledge of Prevention/Tx of Neuro Disorders/ Complication Maintain/ Improve Strength/ROM Other Outcome/Goals Isotoner glove during the day Progression Toward Outcome/Goals Progressing Respiratory - Improve/Maintain Start: 12/04/16 21:42 Freq: QSHIFT Status: Complete Target: Activity Type Activity Date Activity User E-Sign Co-Sign Detail Recorded Client Recorded Date Recorded By Document 12/14/16 10:52 [id number] 12/14/16 10:54 [id number] 12/14/16 10:52 PMRU Outcome: Respiratory Does Patient Have a Trach No Outcome/Goals Maintain/ Improve Baseline Respiratory Status Maintain/ Improve Activity Tolerance Prevent Pneumonia/ Atelectasis Safety- Improve/Maintain Start: 12/04/16 21:42 Freq: QSHIFT Status: Complete Target: Activity Type Activity Date Activity User E-Sign Co-Sign Detail Recorded Client Recorded Date Recorded By Document 12/14/16 15:56 [id number] [email or web address] 12/14/16 15:57 [id number] 12/14/16 15:56 PMRU Outcome: Safety Outcome/Goals Remain Free of Injury or Harm Cooperates with Safety Measures for Least Restrictive Environment Prevent Falls/ Injury Equipment Needed Outcome/Goals Met Remain Free of Injury or Harm Cooperates with Safety Measures for Least Restrictive Environment Prevent Falls/ Injury Skin- Improve/Maintain Start: 12/04/16 21:42 Freq: QSHIFT Status: Complete Target: Activity Type Activity Date Activity User E-Sign Co-Sign Detail Recorded Client Recorded Date Recorded By Document 12/16/16 08:00 [id number] [email or web address] 12/16/16 13:20 [id number] 12/16/16 08:00 PMRU Outcome: Skin Skin Risk Level Low Skin Orders Turn/Position q2hr While in Bed Outcome/Goals Maintain/ Improve Skin Intergrity Free from Decubitus Outcome/Goals Met Maintain/ Improve Skin Intergrity Free from Decubitus Medicine Note: Length of Stay: 1 days Anticipated Discharge Destination: Home Tentative Discharge Date: 12/20/16 Discharged to: Home
[2016-12-19] MEDS: Atorvastatin* 80 MG TAB PO SCH (16:49)
[2016-12-19] MEDS: Enoxaparin(*) 30 MG/0.3 ML SYR SUBCUT SCH (21:12)
[2016-12-19] MEDS: Insulin GLARGINE(*) 1 UNITS UNIT SUBCUT SCH (21:12)
[2016-12-19] MEDS: Senna TAB PO SCH (21:13)
[2016-12-20 06:12] LABS: Hematocrit 39 % (42-52); Mean Corpuscular HGB Conc 34 g/dl (31-36); Mean Corpuscular Hemoglobin 26 pg (27-31); Mean Corpuscular Volume 78 fL (80-94); Mean Platelet Volume 8 um3 (7.4-10.4); Red Blood Count 4.96 10^6/ul (4.0-5.4); Red Cell Distribution Width 13 % (10.5-15); White Blood Count 8.6 10^3/ul (3.5-10.8)
[2016-12-20 06:22] LABS: Albumin 3.2 g/dL (3.2-5.2); BUN/Creatinine Ratio 24.3 (8-20); Calcium 8.9 mg/dL (8.6-10.3); EGFR African American 46.7 (>60); EGFR Non-African American 36.3 (>60); Globulin 3.2 g/dL (2-4); Potassium 4.1 mmol/L (3.5-5.0); Total Bilirubin 0.3 mg/dL (0.2-1.0); Total Protein 6.4 g/dL (6.4-8.9)
[2016-12-20 06:42] VITALS: BP 151/99
[2016-12-20] MEDS: Insulin LISPRO* 1 UNITS UNIT SUBCUT SCH (08:23)
[2016-12-20] MEDS: glipiZIDE TAB* 5 MG PO SCH (08:25)
[2016-12-20] MEDS: Aspirin EC TAB* 325 MG PO SCH (08:25)
[2016-12-20] MEDS: cloNIDine TAB* 0.1 MG PO SCH (08:25)
[2016-12-20] MEDS: Lisinopril TAB* 10 MG PO SCH (08:25)
[2016-12-20] MEDS: amLODIPine TAB* 5 MG PO SCH (08:25)
[2016-12-20] MEDS: FLUoxetine CAP* 20 MG PO SCH (08:25)
[2016-12-20] MEDS: Clopidogrel TAB* 75 MG PO SCH (08:25)
[2016-12-20] MEDS: Docusate CAP* 100 MG PO SCH (08:28)
--- NOTE | 2016-12-20 10:38 | TRS ---
CC: [facility] * TRANSFER SUMMARY: DATE OF ADMISSION: 12/04/16. DATE OF TRANSFER: 12/20/16 The patient is being transferred to [facility]. DISCHARGE DIAGNOSES: 1. Right pontine stroke with left hemiparesis. 2. Diabetes mellitus. 3. Hypertension. 4. Hyperlipidemia. HISTORY OF ILLNESS AND HOSPITAL COURSE: For a complete history of the events leading up to his rehab stay, please see the history and physical dictated by me on 12/04/16. While on the rehab unit, the patient initially had trouble with his blood sugars dropping. As a result, his glipizide was lowered to 5 mg twice a day; this seemed to be helpful. However, the patient continued to have an occasional high blood sugar after that. It was felt that the high blood sugars were secondary to dietary lapses. Otherwise, he was medically stable. The patient was seen by both Physical and Occupational Therapy as well as Speech Therapy. With speech therapy, he was quickly discharged as he was felt to be at his baseline. With physical therapy at the time of admission, the patient required min-assist to transfer. He was able to walk 10 feet with minimal amount of assistance. With occupational therapy, he was max assist for lower body dressing, moderate amount of assistance for toileting, min assist for toilet transfers. By the time of discharge, he still required contact guard for toileting, sometimes min assist. He is able to ambulate 150 feet with supervision. Transfers with supervision. The patient is being transferred to [facility] in order to undergo continued rehabilitation on a slightly slower scale so that he might return home to independent living. DISCHARGE DIET: Consistent carbohydrate. DISCHARGE MEDICATIONS: 1. Norvasc 10 mg daily. 2. Aspirin 325 mg daily. 3. Lipitor 80 mg daily at 5 p.m. 4. Clonidine 0.1 mg twice a day. 5. Plavix 75 mg daily. 7. Lovenox 30 mg subcutaneously daily. 8. Prozac 20 mg daily. 9. Glucotrol 5 mg at 8 a.m. and 5 p.m. 10. Lantus insulin 45 units subcutaneously daily. 11. Lisinopril 20 mg daily. 12. Senokot two tablets at bedtime. 13. Lispro insulin sliding scale coverage, carbohydrate counting with meals. SERVICES AFTER DISCHARGE: He is to have [facility] Therapy and Occupational Therapy. FOLLOWUP: He can follow up with his primary care doctor after discharge from [facility]. [id number]/CPS #: [id number] TIFFANI
== END 2016-12-20 11:00 | DRG 58 ==
LOC: PMRU 14:44
PROVIDERS: ADMIT Physical Medicine & Rehabilitation; ATTEND Physical Medicine & Rehabilitation
PROC: F07Z5ZZ Bed Mobility Treatment (ICD-10-PCS; principal; 2016-12-04)
PROC: F07Z9ZZ Gait Training/Functional Ambulation Treatment (ICD-10-PCS; 2016-12-04)
PROC: F07Z8ZZ Transfer Training Treatment (ICD-10-PCS; 2016-12-04)
PROC: F07Z4ZZ Wheelchair Mobility Treatment (ICD-10-PCS; 2016-12-04)
PROC: F08Z0ZZ Bathing/Showering Techniques Treatment (ICD-10-PCS; 2016-12-04)
PROC: F08Z1ZZ Dressing Techniques Treatment (ICD-10-PCS; 2016-12-04)
PROC: F08Z3ZZ Feeding/Eating Treatment (ICD-10-PCS; 2016-12-04)
PROC: F06Z6ZZ Communicative/Cognitive Integration Skills Treatment (ICD-10-PCS; 2016-12-04)
DX: I69.354 Hemiplegia and hemiparesis following cerebral infarction affecting left non-dominant side (principal); E11.22 Type 2 diabetes mellitus with diabetic chronic kidney disease; I12.9 Hypertensive chronic kidney disease with stage 1 through stage 4 chronic kidney disease, or unspecified chronic kidney disease; N18.9 Chronic kidney disease, unspecified; Z79.4 Long term (current) use of insulin; E78.5 Hyperlipidemia, unspecified; E11.65 Type 2 diabetes mellitus with hyperglycemia; Z79.82 Long term (current) use of aspirin; Z79.899 Other long term (current) drug therapy; Z88.8 Allergy status to other drugs, medicaments and biological substances
CPT/HCPCS: 36415; 80053; 85025; A9270-GY; J1650

== ENCOUNTER 2017-07-09 09:16 | Observation (INO) | payer BC, MEDICARE, OTHER ==
[2017-07-09] MEDS ORDERED: hydrALAZINE IV* 20 MG/ML VIAL IV SLOW PU ONE (09:40)
[2017-07-09 09:56] LABS: ABS Basophils 0 10^3/ul (0-0.2); ABS Eosinophils 0.1 10^3/ul (0-0.6); ABS Lymphocytes 1.6 10^3/ul (1.0-4.8); ABS Monocytes 0.9 10^3/ul (0-0.8); ABS Nucleated RBC 0 10^3/ul; Hematocrit 34 % (42-52); Hemoglobin 11.4 g/dl (14.0-18.0); Lymphocyte % 13.4 % (25-47); Mean Corpuscular HGB Conc 34 g/dl (31-36); Mean Corpuscular Hemoglobin 25 pg (27-31); Mean Corpuscular Volume 75 fL (80-94); Mean Platelet Volume 8 um3 (7.4-10.4); Nucleated Red Blood Cells % 0; Platelet Count 242 10^3/ul (150-450); Red Blood Count 4.51 10^6/ul (4.0-5.4); Red Cell Distribution Width 15 % (10.5-15); White Blood Count 11.7 10^3/ul (3.5-10.8)
--- NOTE | 2017-07-09 10:19 | RAD ---
HISTORY: Shortness of breath, chest pain COMPARISONS: November 22, 2016 VIEWS: 4: Frontal dual-energy and lateral views of the chest. FINDINGS: CARDIOMEDIASTINAL SILHOUETTE: The cardiomediastinal silhouette is normal. HARJINDER: The harjinder are normal. PLEURA: The costophrenic angles are sharp. No pleural abnormalities are noted. LUNG PARENCHYMA: There is mild diffuse reticular pattern. ABDOMEN: The upper abdomen is clear. There is no subphrenic gas. BONES AND SOFT TISSUES: Degenerative changes are noted along the spine. OTHER: None. IMPRESSION: MILD PULMONARY INTERSTITIAL EDEMA.
[2017-07-09 10:20] LABS: INR 1.06 (0.77-1.02)
[2017-07-09] MEDS ORDERED: Furosemide IV* 10 MG/ML 2 ML VIAL (20 MG) IV SLOW PU ONE (10:25)
[2017-07-09 10:32] LABS: EGFR Non-African American 27.2 (>60)
[2017-07-09] MEDS ORDERED: Acetaminophen TAB* 325 MG PO PRN (12:40)
[2017-07-09] MEDS ORDERED: Nitroglycerin 2% OINT* 1 GM PAK TOPICAL ONE (13:01)
[2017-07-09] MEDS ORDERED: cloNIDine TAB* 0.1 MG PO ONE (13:04)
[2017-07-09 13:54] LABS: Urine Appearance Clear; Urine Blood 1+ (Negative); Urine Color Colorless; Urine Ketones Negative (Negative); Urine Protein 2+(100 mg/dL) (Negative); Urine Specific Gravity 1.008 (1.010-1.030); Urine Urobilinogen Negative (Negative)
[2017-07-09] MEDS: Heparin VIAL(*) 5000 UNITS/ML VIAL (FIVE THOUSAND) SUBCUT SCH ×3 (14:34→21:08)
[2017-07-09] MEDS: glipiZIDE TAB* 5 MG PO SCH (17:36)
--- NOTE | 2017-07-09 20:16 | HP ---
CC: Dr. Zhong * ADMISSION HISTORY AND PHYSICAL: DATE OF ADMISSION: 07/09/17 PRIMARY CARE PROVIDER: Dr. Zhong. HEALTHCARE PROXY: His son and his daughter, Conner. CODE STATUS: Full. SOURCE OF INFORMATION: History obtained from interview with patient. RELIABILITY: Good. CHIEF COMPLAINT: Shortness of breath. HISTORY OF PRESENT ILLNESS: This is a 61-year-old man with past medical history of hypertension, who started minoxidil in April secondary to uncontrolled blood pressure, measures his blood pressure everyday at home; had increased lower extremity and hand swelling, and since that time had noticed last week that his blood pressure had been increasing from systolics of 140 to 160 to 170. He followed up with Dr. Zhong 3 days prior to presentation and at that time Dr. Zhong increased his metoprolol from 50 mg to 100 mg and stopped his minoxidil. Over the weekend, the patient noticed that his blood pressure continued to rise from 180s to systolics 200s. Yesterday, during the day he felt well, although weaker and throughout the day developed progressive shortness of breath associated with cough, but no fevers, sore throat, rhinorrhea, myalgias. Overnight he had headache as well as nausea, but no vomiting. In the morning he woke more short of breath, significantly worse with exertion. Typically, he will walk unlimited distance, but was experiencing dyspnea on exertion with approximately 10 feet. For this reason, he activated EMS and was brought to the [facility] ED, where his initial blood pressure was 234/94. He received 20 mg of IV hydralazine. When seen by this author, his blood pressure was 182/70. His dyspnea had felt slightly improved, although was in some distress as he received Lasix and had to urinate severely. He denied any chest pain, nausea, or vomiting at that time. His headache had resolved. No other constipation, diarrhea, melena, bright red blood per rectum , visual symptoms, hematuria, weakness, or confusion. PAST MEDICAL HISTORY: Includes: 1. Insulin-dependent type 2 diabetes mellitus. 2. Chronic lower back pain. 3. Hypertension. 4. Hyperlipidemia. 5. Chronic kidney disease. 6. 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 7. He has diastolic congestive heart failure that has never been decompensated. PAST SURGICAL HISTORY: He denies any surgeries. MEDICATIONS: Reviewed with the patient, include: 1. Metoprolol succinate 100 mg daily. 2. Aspirin 325 mg daily. 3. Lovastatin 20 mg in the evening. 4. Lantus 30 units daily. 5. Lisinopril 40 mg daily. 6. Hydrochlorothiazide 25 mg daily. 7. Clonidine 0.3 mg daily. 8. Sinemet 650 mg daily. 9. Glipizide 5 mg twice daily. 10. Centrum Silver 1 tab daily. ALLERGIES: To MS HYDROCODONE and MS GABAPENTIN. FAMILY HISTORY: Mother at age 60 from cerebral aneurysm. Father of complications with CKD at age 59. SOCIAL HISTORY: He has a 5-pack-year smoking, quit in 1984. No alcohol. He is on disability. REVIEW OF SYSTEMS: As per HPI. Otherwise, all other systems negative. PHYSICAL EXAMINATION GENERAL: Obese man sitting up in bed, interactive, pleasant, in no apparent distress, talks in full sentences. VITAL SIGNS: Vitals when seen by this author, 182/70, increased to 238 after my assessment; heart rate 68; respiratory rate 22; 96% on room air; T-max 98.4. HEENT: Oropharynx is clear. He has moist mucous membranes. His sclerae are anicteric. NECK: He has non-elevated JVD. LUNGS: His lungs are clear to auscultation throughout. HEART: He has a regular rate and rhythm. No murmurs, rubs, or gallops. ABDOMEN: His abdomen is obese, nondistended, nontender, soft. Positive bowel sounds. EXTREMITIES: Warm and well perfused. He had 2+ lower extremity edema bilaterally. No skin breakdown. NEUROLOGIC: He is alert and oriented x3. His cranial nerves II through XII are intact. He has 4/5 strength in his left arm, residual from his previous CVA. He has no apparent anxiety, agitation, or depression. LABORATORY DATA: Pertinent labs reviewed. White blood cell count is 11.7, hemoglobin 11.4, platelets are 242,000. His BUN is 38. His creatinine is 2.43. Lactic acid 0.8. Troponin I is 0.03. BNP is 563. Influenza A and B are negative. DIAGNOSTIC DATA: EKG, normal sinus rhythm, normal limited axis, T-wave inversions in V5, V6, 1, aVL. 1-mm ST elevation in lead 3. Chest x-ray, potentially mild pulmonary vascular congestion. ASSESSMENT AND PLAN: This is a 61-year-old man, recent medication changes including the discontinuation of minoxidil, presenting with hypertensive urgency. Hypertensive urgency associated with shortness of breath. The patient is on clonidine and is at significant risk for hypertension should this be withdrawn in the setting of beta-blockade; however, he knows that he has continued to take his clonidine. I think this is in the setting of absence of minoxidil at this point. We will start a nitro paste at this time as well as additional 0.2 mg of clonidine to attempt to control his blood pressure without need of a nitroprusside drip. His blood pressure is well controlled with his home medications and these 2 additions. The patient will go to the floor and we will adjust his oral medications with breakthrough hydralazine 10 mg every 6 hours as needed. Otherwise, the patient will go to the ICU for nitroprusside drip to control his high blood pressure. Shortness of breath, I suspect in the setting of elevated blood pressure. He has mild pulmonary vascular congestion on chest x-ray, although his lungs are clear. He received 20 mg of IV Lasix in the emergency room. We will not dose additional at this time. He has had good urine output. Chronic kidney disease. Dose meds accordingly. Lower extremity swelling, I suspect in the setting of minoxidil started shortly after its initiation in April and has gradually worsened since that time. Elevate legs while here. Type 2 diabetes. Continue insulin 30 units for his home dose. Check fingersticks. We will add sliding scale if needed. DVT prophylaxis. Heparin subcu. [id number]/[facility] #: [id number] [facility]
[2017-07-09] MEDS ORDERED: cloNIDine TAB* 0.1 MG PO SCH (21:00)
[2017-07-09] MEDS: Atorvastatin* 10 MG TAB PO SCH (21:06)
[2017-07-09] MEDS: hydrALAZINE IV* 20 MG/ML VIAL IV SLOW PU PRN (21:08)
[2017-07-10] MEDS: hydrALAZINE IV* 20 MG/ML VIAL IV SLOW PU PRN (03:49)
[2017-07-10] MEDS: Heparin VIAL(*) 5000 UNITS/ML VIAL (FIVE THOUSAND) SUBCUT SCH ×3 (06:20→22:31)
[2017-07-10] MEDS ORDERED: Metoprolol Succinate XL TAB* 100 MG PO SCH (09:00)
[2017-07-10] MEDS ORDERED: cloNIDine TAB* 0.1 MG PO SCH (09:00)
[2017-07-10] MEDS: Ondansetron INJ* 2 MG/ML VIAL IV PRN ×2 (09:19→15:42)
[2017-07-10] MEDS: Aspirin EC TAB* 325 MG PO SCH (09:56)
[2017-07-10] MEDS: cloNIDine TAB* 0.1 MG PO SCH ×2 (09:56→19:57)
[2017-07-10] MEDS: Insulin GLARGINE(*) 1 UNITS UNIT SUBCUT SCH (09:57)
[2017-07-10] MEDS: glipiZIDE TAB* 5 MG PO SCH ×2 (09:57→16:54)
[2017-07-10] MEDS: Lisinopril TAB* 10 MG PO SCH (09:57)
[2017-07-10] MEDS: Hydrochlorothiazide TAB* 25 MG PO SCH (09:57)
[2017-07-10] MEDS ORDERED: hydrALAZINE TAB* 10 MG PO ONE (17:26)
--- NOTE | 2017-07-10 17:30 | PN ---
Subjective Date of Service: 07/10/17 Interval History: BP better today but noted bradycardia and nausea throughout the day Objective Active Medications: Acetaminophen (Tylenol Tab*) 650 mg PO Q4H PRN PRN Reason: FEVER/PAIN Last Admin: 07/10/17 03:44 Dose: 650 mg Aspirin (Ecotrin Ec Tab*) 325 mg PO DAILY [facility] Last Admin: 07/10/17 09:56 Dose: 325 mg Atorvastatin Calcium (Lipitor*) 5 mg PO BEDTIME [facility] Last Admin: 07/09/17 21:06 Dose: 5 mg Clonidine HCl (Catapres Tab*) 0.3 mg PO BID [facility] Last Admin: 07/10/17 09:56 Dose: 0.3 mg Glipizide (Glucotrol Tab*) 5 mg PO 0800,1700 [facility] Last Admin: 07/10/17 16:54 Dose: 5 mg Heparin Sodium (Porcine) (Heparin Vial(*)) 5,000 units SUBCUT Q8HR [facility] Last Admin: 07/10/17 14:26 Dose: 5,000 units Hydralazine HCl (Apresoline Iv*) 5 mg IV SLOW PU Q6H PRN PRN Reason: BLOOD PRESSURE Last Admin: 07/10/17 03:49 Dose: 5 mg Hydralazine HCl (Apresoline Tab*) 10 mg PO TID [facility] Hydrochlorothiazide (Hydrodiuril Tab*) 25 mg PO DAILY [facility] Last Admin: 07/10/17 09:57 Dose: 25 mg Insulin Glargine (Lantus(*)) 30 units SUBCUT DAILY [facility] Last Admin: 07/10/17 09:57 Dose: 30 unit Lisinopril (Prinivil Tab*) 40 mg PO DAILY [facility] Last Admin: 07/10/17 09:57 Dose: 40 mg Metoprolol Succinate (Toprol Xl Tab*) 100 mg PO DAILY [facility] Last Admin: 07/10/17 09:57 Dose: 100 mg Ondansetron HCl (Zofran Inj*) 4 mg IV Q4H PRN PRN Reason: NAUSEA/VOMITING Last Admin: 07/10/17 15:42 Dose: 4 mg Vital Signs - 8 hr 07/10/17 07/10/17 11:20 15:55 Temperature 97.8 F 97.7 F Pulse Rate 52 52 Respiratory 18 18 Rate Blood Pressure 163/82 149/79 (mmHg) O2 Sat by Pulse 99 96 Oximetry Oxygen Devices in Use Now: None, Nasal Cannula Appearance: NAD Eyes: No Scleral Icterus, PERRLA Ears/Nose/Mouth/Throat: NL Teeth, Lips, Gums Neck: NL Appearance and Movements; NL JVP, Trachea Midline Respiratory: Symmetrical Chest Expansion and Respiratory Effort Cardiovascular: RRR Abdominal: NL Sounds; No Tenderness; No Distention, No Hepatosplenomegaly Lymphatic: No Cervical Adenopathy Extremities: - - 1+ LE Neurological: Alert and Oriented x 3 Result Diagrams: 07/09/17 09:44 07/09/17 09:44 Microbiology and Other Data: Microbiology 07/09/17 13:13 Urine Culture - Final Urine No Growth (<1,000 CFU/mL) Assess/Plan/Problems-Billing Assessment: 61 yo M p/w SOB and hypertensive urgency - Patient Problems (1) Hypertensive urgency Comment: Improved with increased dose of clonidine. However, I am concerned that this is contributing to new nausea. Additionally, I do not think his metoprolol dose is sustainable given persisten bradycardia. Will add hydralazine PO with plan to decrease metoprolol and clonidine if able. (2) Acute respiratory failure with hypoxia Comment: In setting of volume overload precipitated by elevated BP Resolved (3) DVT prophylaxis Comment: SQ heparin (4) Type II diabetes mellitus Comment: Glipizide lantus
[2017-07-10] MEDS: hydrALAZINE TAB* 10 MG PO SCH (19:57)
[2017-07-10] MEDS: Atorvastatin* 10 MG TAB PO SCH (19:57)
[2017-07-10] MEDS: guaiFENesin ER TAB 600 MG PO SCH (22:31)
[2017-07-11] MEDS: Heparin VIAL(*) 5000 UNITS/ML VIAL (FIVE THOUSAND) SUBCUT SCH ×2 (05:27→13:07)
--- NOTE | 2017-07-11 08:31 | ED ---
George Montalvo Angela, scribed for Joey Cruz MD on 07/09/17 at 0934 . Complex/Multi-Sys Presentation - HPI Summary HPI Summary: This pt is a 61 y/o male presenting to [facility] c/o SOB, weakness, and cough since last night. Pt reports a productive cough with yellow sputum. He additionally notes runny nose. EMS notes the pt was too tired and weak to drive his car. Per EMS, pt's blood pressure was elevated today, 280's/150's, and had blood sugar of 106. Pt states he has edema in his lower extremities (pt was taken off Minoxidil because it caused swelling in his feet). Denies chest pain, sore throat, fever, chills. PMHx: stroke, DM, HTN. EMS notes pt has had recent antihypertensive medications of metoprolol. Pt is also on Lisinopril. - History Of Current Complaint Time Seen by Provider: 07/09/17 09:18 Hx Obtained From: Patient, EMS Onset/Duration: Lasting Days, Still Present Timing: Days Severity Currently: Moderate Aggravating Factor(s): nothing Alleviating Factor(s): nothing Associated Signs And Symptoms: Positive: Weakness - generalized, SOB, Cough, Edema, Other - POS: runny nose. NEG: sore throat. Negative: Chest Pain, Fever - Allergies/Home Medications Allergies/Adverse Reactions: Allergies Allergy/AdvReac Type Severity Reaction Status Date / Time MS Hydrocodone Allergy Nausea Verified 05/07/17 14:26 MS Gabapentin AdvReac Intermediate Nausea Verified 05/07/17 14:26 [From Neurontin] Home Medications: Home Medications Cinnamon Bark [Cinnamon] 650 mg PO DAILY 07/09/17 [History Confirmed 07/09/17] Insulin GLARGINE(*) [Lantus(*)] 30 units SUBCUT DAILY 07/09/17 [History Confirmed 07/09/17] Lovastatin(NF) [Mevacor(NF)] 20 mg PO BEDTIME 07/09/17 [History Confirmed ] Metoprolol Succinate XL TAB* [Toprol XL TAB*] 100 mg PO DAILY 07/09/17 [History Confirmed 07/09/17] Multivit-Min/FA/Lycopen/Lutein [Centrum Silver Men Tablet] 1 each PO DAILY 07/09 [History Confirmed 07/09/17] PMH/Surg Hx/FS Hx/Imm Hx Endocrine/Hematology History: Reports: Hx Diabetes Cardiovascular History: Reports: Hx Cardiomegaly, Hx Hypercholesterolemia, Hx Hypertension Denies: Hx Pacemaker/ICD, Other Cardiovascular Problems/Disorders Respiratory History: Denies: Hx Chronic Obstructive Pulmonary Disease (COPD) GI History: Denies: Other GI Disorders History: Reports: Hx Chronic Renal Failure - stage 4 Denies: Hx Dialysis Musculoskeletal History: Reports: Hx Back Problems Sensory History: Reports: Hx Cataracts, Hx Contacts or Glasses - reading glasses Denies: Hx Hearing Aid Opthamlomology History: Reports: Hx Cataracts, Hx Contacts or Glasses - reading glasses Neurological History: Reports: Other Neuro Impairments/Disorders - PAIN CLINIC PT Denies: Hx Dementia, Hx Seizures Psychiatric History: Denies: Hx Panic Disorder - Surgical History Surgery Procedure, Year, and Place: TUBES IN EARS CHILD; CATARACTS Hx Anesthesia Reactions: No - Family History Known Family History: Positive: Diabetes, Other - [place] - Social History Alcohol Use: None Hx Substance Use: No Substance Use Type: Reports: None Hx Tobacco Use: Yes Smoking Status (MU): Former Smoker Type: Cigarettes Have You Smoked in the Last Year: No Review of Systems Negative: Fever, Chills Positive: Nasal Discharge. Negative: Sore Throat Negative: Chest Pain Positive: Shortness Of Breath, Cough Positive: Edema Positive: Weakness - generalized All Other Systems Reviewed And Are Negative: Yes Physical Exam - Summary Physical Exam Summary: VITAL SIGNS: Reviewed. GENERAL: Patient is an obese male with some respiratory distress. HEAD AND FACE: No signs of trauma. No ecchymosis, hematomas or skull depressions. No sinus tenderness. EYES: PERRLA, EOMI x 2, No injected conjunctiva, no nystagmus. EARS: Hearing grossly intact. Ear canals and tympanic membranes are within normal limits. MOUTH: Oropharynx within normal limits. NECK: Supple, trachea is midline, no adenopathy, no JVD, no carotid bruit, no c- spine tenderness, neck with full ROM. CHEST: Symmetric, no tenderness at palpation LUNGS: Clear to auscultation bilaterally. No wheezing or crackles. CVS: Regular rate and rhythm, S1 and S2 present, no murmurs or gallops appreciated. ABDOMEN: Soft, non-tender. Abdomen is obese and distended. No rebound no guarding, and no masses palpated. Bowel sounds are normal. EXTREMITIES: FROM in all major joints, no cyanosis or clubbing. 1+ lower extremity edema. NEURO: Alert and oriented x 3. No acute neurological deficits. Speech is normal and follows commands. SKIN: Warm and diaphoretic. Triage Information Reviewed: Yes Vital Signs Reviewed: Yes Diagnostics - Laboratory Result Diagrams: 07/09/17 09:44 07/09/17 09:44 Lab Statement: Any lab studies that have been ordered have been reviewed, and results considered in the medical decision making process. - Radiology Chest XR Xray Interpretation: Positive (See Comments) - IMPRESSION: Mild pulmonary interstitial edema. Dr. Cruz has reviewed this radiology report. Radiology Interpretation Completed By: Radiologist - EKG 09:46 Cardiac Rate: NL EKG Rhythm: Sinus Rhythm - at 63 bpm EKG Interpretation: No ST elevation. EKG Comparison: No Significant Change - similar to prior EKG on 11/22/16. Complex Multi-Symp Course/Dx Assessment/Plan: This pt is a 61 y/o male presenting to [facility] c/o SOB, weakness , and cough since last night. Pt reports a productive cough with yellow sputum. He additionally notes runny nose. EMS notes the pt was too tired and weak to drive his car. Per EMS, pt's blood pressure was elevated today, 280's/150's, and had blood sugar of 106. Denies chest pain, sore throat, fever, chills. PMHx : stroke, DM, HTN. EMS notes pt has had recent antihypertensive medications of metoprolol. Pt is also on Lisinopril. Test results show WBC of 11.7, slight anemia, BNP of 563. Influenza A and B is negative. Chest XR: Mild pulmonary interstitial edema. In the ED course the pt is significantly hypertensive, likely with hypertensive urgency. Pt was given Hydralazine and blood pressure significantly decreased. The pt is more stable. Pt was given Lasix for CHF. At this point I discussed the test results and findings with Dr. Simpson, hospitalist, who accepted the pt for admission. Pt is hemodynamically stable, alert and oriented x3. - Diagnoses Provider Diagnoses: Hypertensive urgency, CHF exacerbation, Renal failure - Physician Notifications Discussed Care Of Patient With: Antwon Simpson Time Discussed With Above Provider: 11:46 Instructed by Provider To: Other - I discussed pt care with Dr. Simpson, hospitalist, who has agreed to admit the pt. - Critical Care Time Critical Care Time: 75-104 min Discharge - Discharge Plan Condition: Stable Disposition: ADMITTED TO [facility] documentation as recorded by the George jacobsen Angela accurately reflects the service I personally performed and the decisions made by me, Joey Cruz MD.
[2017-07-11] MEDS ORDERED: Metoprolol Succinate XL TAB* 50 MG PO SCH (09:00)
[2017-07-11] MEDS: Hydrochlorothiazide TAB* 25 MG PO SCH (09:12)
[2017-07-11] MEDS: guaiFENesin ER TAB 600 MG PO SCH (09:12)
[2017-07-11] MEDS: Lisinopril TAB* 10 MG PO SCH (09:12)
[2017-07-11] MEDS: Aspirin EC TAB* 325 MG PO SCH (09:12)
[2017-07-11] MEDS: glipiZIDE TAB* 5 MG PO SCH (09:13)
[2017-07-11] MEDS: hydrALAZINE TAB* 10 MG PO SCH ×2 (09:13→13:07)
[2017-07-11] MEDS: cloNIDine TAB* 0.1 MG PO SCH (09:13)
[2017-07-11] MEDS: Insulin GLARGINE(*) 1 UNITS UNIT SUBCUT SCH (09:13)
[2017-07-11] MEDS: Ondansetron INJ* 2 MG/ML VIAL IV PRN (09:58)
[2017-07-11 11:08] VITALS: BP 150/75
--- NOTE | 2017-07-12 13:20 | DS ---
CC: Dr. Zhong DISCHARGE SUMMARY: DATE OF ADMISSION: 07/09/17 DATE OF DISCHARGE: 07/11/17 PRIMARY CARE PHYSICIAN: Dr. Zhong. PRIMARY DIAGNOSIS: Hypertensive urgency. SECONDARY DIAGNOSES: Include: 1. Resistant hypertension. 2. Insulin-dependent type 2 diabetes mellitus. 3. Hyperlipidemia. 4. Chronic kidney disease. 5. History of cerebrovascular accident in October 2016. 6. Compensated diastolic heart failure based on echocardiograph evidence. MEDICATIONS ON DISCHARGE: Multiple medication changes have been made, will be summarized in the body of this report, include: 1. Insulin glargine 30 units daily. 2. Glipizide 5 mg twice daily. 3. Multivitamin 1 tab daily. 4. Cinnamon bark 650 mg daily. 5. Lisinopril 40 mg daily. 6. Hydrochlorothiazide 25 mg daily. 7. Lovastatin 20 mg at bedtime. 8. Aspirin 325 mg daily. 9. Hydralazine 10 mg 3 times daily. 10. Clonidine 0.3 mg twice daily. 11. Metoprolol succinate 50 mg daily. 12. Zofran ODT 4 mg every 6 hours as needed for nausea. PERTINENT IMAGING: Chest x-ray, impression: Mild pulmonary interstitial edema. HISTORY OF PRESENT ILLNESS AND HOSPITAL COURSE: This is a 61-year-old man with past medical history as outlined in the history of present illness on the day of admission, presented to the hospital with increasing shortness of breath. He was found with blood pressures as high as systolics 238 on admis mario, difficult to control. He received Lasix in the emergency room secondary to concern for interst itial edema with some relief in his shortness of breath; however, not full resolution. He never requ ired antihypertensive drip to maintain his blood pressure and when his blood pressure was better cont rolled, his shortness of breath resolved as well. It is noted that the patient had his metoprolol arrington ccinate doubled and his minoxidil discontinued several months prior to presentation. Multiple medica tion changes were made including increase of his clonidine from 0.3 mg in the evening to twice daily, the addition of hydralazine 10 mg 3 times a day, and the reduction in his metoprolol dose from 100 m g to 50 mg. The patient was noted to be bradycardic throughout the day in the 50s dropping to the 40 s in his sleep. The patient developed some nausea throughout the day with the up titration of his cl onidine the day prior to discharge. On the day of discharge, he had nausea in the morning that resol aramis later in the day. I am concerned that the clonidine may be contributing to nausea in this patien t. The addition of the hydralazine will allow for up titration of this medication and down titration of the clonidine should his nausea continue. It is additionally noted that clonidine with metoprolo l has potential for severe rebound hypertension should the patient stop the clonidine. The patient n oted that he did not miss any doses of the clonidine prior to presentation. different should o ne be identified, maybe preferable for this patient on metoprolol and clonidine. On the day of disch arge, the patient had no shortness of breath, he was ambulating, tolerating all his food well. At followup, please: 1. To the best of this author's knowledge, he has not undergone any workup for secondary hypertensio n, which he . 2. Continue to follow blood pressure, adjust medications as necessary as indicated in the body of th is report. 3. No other specific labs or vitals that need followup. Reasons to return to the hospital include, but not limited to recurrent or worsening symptoms includi ng shortness of breath, chest pain, loss of consciousness, lightheadedness, near loss of consciousnes s, bleeding from any source including his urine, inability to obtain or tolerate medication or increa sing blood pressures discussed with the patient who measures his blood pressure at home. He acknowle dged understanding. TIME SPENT: Greater than 60 minutes was spent on discharge of the patient, greater than half was spe nt [id number] with the patient. [id number] #: [id number]
== END 2017-07-11 15:38 | disposition home or self-care (01) ==
LOC: ED 09:16 → MEDTELE 12:40
PROVIDERS: ADMIT Internal Medicine; ATTEND Internal Medicine
DX: I16.0 Hypertensive urgency (principal); I50.9 Heart failure, unspecified; N19 Unspecified kidney failure; J96.91 Respiratory failure, unspecified with hypoxia; E11.9 Type 2 diabetes mellitus without complications; R53.1 Weakness; R06.02 Shortness of breath; R05 Cough; Z87.891 Personal history of nicotine dependence; R11.2 Nausea with vomiting, unspecified
CPT/HCPCS: 36415; 36600; 71046; 80053; 81003; 81015; 82553; 82803; 83605; 83880; 84484; 85025; 85610; 85730; 86140; 87040; 87086; 87502; 93005; 96374; 96375; 99284; A9270-GY; G0378; J0360; J1644; J1940; J2405

== ENCOUNTER 2017-07-12 03:27 | Emergency (ER) | payer MEDICARE ==
[2017-07-12 06:35] LABS: ABS Basophils 0 10^3/ul (0-0.2); ABS Eosinophils 0.1 10^3/ul (0-0.6); ABS Lymphocytes 1.8 10^3/ul (1.0-4.8); ABS Monocytes 0.9 10^3/ul (0-0.8); ABS Neutrophils 7.8 10^3/ul (1.5-7.7); ABS Nucleated RBC 0 10^3/ul; Eosinophil % 1.3 % (0-6); Hematocrit 31 % (42-52); Hemoglobin 10.6 g/dl (14.0-18.0); Lymphocyte % 16.7 % (25-47); Mean Corpuscular HGB Conc 34 g/dl (31-36); Mean Corpuscular Hemoglobin 26 pg (27-31); Mean Corpuscular Volume 75 fL (80-94); Mean Platelet Volume 8 um3 (7.4-10.4); Nucleated Red Blood Cells % 0; Platelet Count 220 10^3/ul (150-450); Red Blood Count 4.11 10^6/ul (4.0-5.4); Red Cell Distribution Width 14 % (10.5-15); White Blood Count 10.6 10^3/ul (3.5-10.8)
[2017-07-12 06:43] LABS: INR 1.06 (0.77-1.02)
[2017-07-12 06:50] LABS: EGFR Non-African American 26.2 (>60)
[2017-07-12] MEDS ORDERED: cloNIDine TAB* 0.1 MG PO ONE (07:36)
[2017-07-12] MEDS ORDERED: hydrALAZINE TAB* 10 MG PO ONE (07:37)
[2017-07-12] MEDS ORDERED: Lisinopril TAB* 10 MG PO ONE (07:38)
[2017-07-12] MEDS ORDERED: Hydrochlorothiazide TAB* 25 MG PO ONE (07:38)
[2017-07-12 07:41] VITALS: BP 193/90
--- NOTE | 2017-07-12 08:11 | ED ---
Ramon Montalvo Nilda, scribed for Pedro Amor MD on 07/12/17 at 0614 . Shortness of Breath - HPI Summary HPI Summary: This patient is a 61 year old M BIBA with a chief complaint of waking up with SOB at 0330. The patient rates the pain 0/10 in severity. Symptoms aggravated and alleviated by nothing. Patient reports elevated BP (200s) and edema, but denies CP. Pt states similar episode 07/09/17 for which he was admitted to [facility] [place]. Pt was discharged yesterday with BP medications. Pt notes he has not filled his prescription yet. Pt states his HR has fallen to 30s bpm in the past. PMHx includes CVA (October 2016). - History of Current Complaint Chief Complaint: EDShortnessOfBreath Hx Obtained From: Patient Onset/Duration: Sudden Onset, Lasting Hours, Still Present Timing: Constant Dyspnea At: [facility] Aggrevating Factors: Nothing Alleviating Factors: Nothing Associated Signs & Symptoms: Edema - Allergy/Home Medications Allergies/Adverse Reactions: Allergies Allergy/AdvReac Type Severity Reaction Status Date / Time gabapentin Allergy Intermediate Nausea Verified 07/11/17 08:51 hydrocodone Allergy Unknown Nausea Verified 07/11/17 08:51 PMH/Surg Hx/FS Hx/Imm Hx Endocrine/Hematology History: Reports: Hx Diabetes Cardiovascular History: Reports: Hx Cardiomegaly, Hx Hypercholesterolemia, Hx Hypertension Denies: Hx Pacemaker/ICD, Other Cardiovascular Problems/Disorders Respiratory History: Denies: Hx Chronic Obstructive Pulmonary Disease (COPD) GI History: Denies: Other GI Disorders History: Reports: Hx Chronic Renal Failure - stage 4 Denies: Hx Dialysis Musculoskeletal History: Reports: Hx Back Problems Sensory History: Reports: Hx Cataracts, Hx Contacts or Glasses - reading glasses Denies: Hx Hearing Aid Opthamlomology History: Reports: Hx Cataracts, Hx Contacts or Glasses - reading glasses Neurological History: Reports: Hx CVA, Other Neuro Impairments/Disorders - PAIN CLINIC PT Denies: Hx Dementia, Hx Seizures Psychiatric History: Denies: Hx Panic Disorder - Surgical History Surgery Procedure, Year, and Place: TUBES IN EARS CHILD; CATARACTS Hx Anesthesia Reactions: No Infectious Disease History: No Infectious Disease History: Denies: Traveled Outside the [place] in Last 30 Days - Family History Known Family History: Positive: Diabetes, Other - [place] - Social History Alcohol Use: None Hx Substance Use: No Substance Use Type: Reports: None Hx Tobacco Use: Yes Smoking Status (MU): Former Smoker Type: Cigarettes Have You Smoked in the Last Year: No Review of Systems Positive: Other - elevated BP, bradycardia. Negative: Chest Pain Positive: Shortness Of Breath All Other Systems Reviewed And Are Negative: Yes Physical Exam - Summary Physical Exam Summary: General: well-appearing, no pain distress Skin: warm, color reflects adequate perfusion, dry Head: normal Eyes: EOMI, JAMES ENT: normal Neck: supple, nontender Respiratory: CTA, breath sounds present Cardiovascular: bradycardia Abdomen: soft, nontender Bowel: present Musculoskeletal: strength/ROM intact, bilat pedal edema Neurological: normal, sensory/motor intact, A&O x3 Psychological: affect/mood appropriate Triage Information Reviewed: Yes Vital Signs On Initial Exam: Initial Vitals Temp Pulse Resp BP Pulse Ox 98 F 46 17 156/106 95 07/12/17 03:37 07/12/17 03:37 07/12/17 03:37 07/12/17 03:37 07/12/17 03:37 Vital Signs Reviewed: Yes Diagnostics - Vital Signs Vital Signs Temp Pulse Resp BP Pulse Ox 07/12/17 06:00 42 13 90 07/12/17 05:30 52 20 158/77 98 07/12/17 05:01 41 18 183/87 95 07/12/17 05:00 39 18 94 07/12/17 04:30 40 17 148/74 95 07/12/17 04:26 40 18 157/68 95 07/12/17 04:16 40 18 142/78 93 07/12/17 04:00 43 19 181/70 94 07/12/17 03:56 43 17 164/72 94 07/12/17 03:55 45 16 94 07/12/17 03:37 98 F 46 17 156/106 95 - Laboratory Lab Results: Lab Results 07/12/17 07/12/17 07/12/17 Range/Units 06:23 06:23 06:23 WBC (3.5-10.8) 10^3/ul RBC (4.0-5.4) 10^6/ul Hgb (14.0-18.0) g/dl Hct (42-52) % MCV (80-94) fL MCH (27-31) pg MCHC (31-36) g/dl RDW (10.5-15) % Plt Count (150-450) 10^3/ul MPV (7.4-10.4) um3 Neut % (Auto) (38-83) % Lymph % (Auto) (25-47) % [place] % (Auto) (1-9) % Eos % (Auto) (0-6) % Baso % (Auto) (0-2) % Absolute Neuts (auto) (1.5-7.7) 10^3/ul Absolute Lymphs (auto) (1.0-4.8) 10^3/ul Absolute Monos (auto) (0-0.8) 10^3/ul Absolute Eos (auto) (0-0.6) 10^3/ul Absolute Basos (auto) (0-0.2) 10^3/ul Absolute Nucleated RBC 10^3/ul Nucleated RBC % INR (Anticoag Therapy) 1.06 H (0.77-1.02) APTT 32.1 (26.0-36.3) seconds Sodium 134 (133-145) mmol/L Potassium 3.9 (3.5-5.0) mmol/L Chloride 103 (101-111) mmol/L Carbon Dioxide 24 (22-32) mmol/L Anion Gap 7 (2-11) mmol/L BUN 49 H (6-24) mg/dL Creatinine 2.51 H (0.67-1.17) mg/dL Est GFR ( Amer) 33.7 (>60) Est GFR (Non-Af Amer) 26.2 (>60) BUN/Creatinine Ratio 19.5 (8-20) Glucose 71 (70-100) mg/dL Lactic Acid (0.5-2.0) mmol/L Calcium 9.4 (8.6-10.3) mg/dL Magnesium 1.8 L (1.9-2.7) mg/dL Total Bilirubin 0.50 (0.2-1.0) mg/dL AST 14 (13-39) U/L ALT 11 (7-52) U/L Alkaline Phosphatase 55 (34-104) U/L Troponin I 0.02 (<0.04) ng/mL C-Reactive Protein 3.52 (< 5.00) mg/L B-Natriuretic Peptide 271 H ( - 100) pg/mL Total Protein 6.7 (6.4-8.9) g/dL Albumin 3.7 (3.2-5.2) g/dL Globulin 3.0 (2-4) g/dL Albumin/Globulin Ratio 1.2 (1-3) TSH 2.45 (0.34-5.60) mcIU/mL 07/12/17 07/12/17 Range/Units 06:23 06:23 WBC 10.6 (3.5-10.8) 10^3/ul RBC 4.11 (4.0-5.4) 10^6/ul Hgb 10.6 L (14.0-18.0) g/dl Hct 31 L (42-52) % MCV 75 L (80-94) fL MCH 26 L (27-31) pg MCHC 34 (31-36) g/dl RDW 14 (10.5-15) % Plt Count 220 (150-450) 10^3/ul MPV 8 (7.4-10.4) um3 Neut % (Auto) 73.6 (38-83) % Lymph % (Auto) 16.7 L (25-47) % [place] % (Auto) 8.2 (1-9) % Eos % (Auto) 1.3 (0-6) % Baso % (Auto) 0.2 (0-2) % Absolute Neuts (auto) 7.8 H (1.5-7.7) 10^3/ul Absolute Lymphs (auto) 1.8 (1.0-4.8) 10^3/ul Absolute Monos (auto) 0.9 H (0-0.8) 10^3/ul Absolute Eos (auto) 0.1 (0-0.6) 10^3/ul Absolute Basos (auto) 0 (0-0.2) 10^3/ul Absolute Nucleated RBC 0 10^3/ul Nucleated RBC % 0 INR (Anticoag Therapy) (0.77-1.02) APTT (26.0-36.3) seconds Sodium (133-145) mmol/L Potassium (3.5-5.0) mmol/L Chloride (101-111) mmol/L Carbon Dioxide (22-32) mmol/L Anion Gap (2-11) mmol/L BUN (6-24) mg/dL Creatinine (0.67-1.17) mg/dL Est GFR ( Amer) (>60) Est GFR (Non-Af Amer) (>60) BUN/Creatinine Ratio (8-20) Glucose (70-100) mg/dL Lactic Acid 0.6 (0.5-2.0) mmol/L Calcium (8.6-10.3) mg/dL Magnesium (1.9-2.7) mg/dL Total Bilirubin (0.2-1.0) mg/dL AST (13-39) U/L ALT (7-52) U/L Alkaline Phosphatase (34-104) U/L Troponin I (<0.04) ng/mL C-Reactive Protein (< 5.00) mg/L B-Natriuretic Peptide ( - 100) pg/mL Total Protein (6.4-8.9) g/dL Albumin (3.2-5.2) g/dL Globulin (2-4) g/dL Albumin/Globulin Ratio (1-3) TSH (0.34-5.60) mcIU/mL Result Diagrams: 07/12/17 06:23 07/12/17 06:23 Lab Statement: Any lab studies that have been ordered have been reviewed, and results considered in the medical decision making process. - Radiology CXR Radiology Interpretation Completed By: ED Physician - NAD though poor inspiration - EKG 0726 Cardiac Rate: Bradycardia EKG Rhythm: Sinus Bradycardia - 47 bpm Ectopy: None EKG Interpretation: ST elevation in V2 V3 EKG Comparison: No Significant Change - from 07/09/17 Course/Dx - Course Assessment/Plan: This patient is a 61 year old M BIBA with a chief complaint of waking up with constant SOB at 0330. The patient rates the pain 0/10 in severity. Symptoms aggravated and alleviated by nothing. Patient reports elevated BP (200s), bradycardia, and edema, but denies CP. Pt states similar episode 07/09/17 for which he was admitted to [facility] and was discharged yesterday with BP medications. Pt notes he has not filled his prescription yet. Pt notes his HR has fallen to 30s bpm in the past. PMHx includes CVA (October 2016). Allergies noted. Medications reviewed. BP noted and advised to follow up with PCP. An EKG reveals sinus bradycardia, 47 bpm, ST elevation at V2 V3, no ectopy , similary to 07/09/17. CXR reveals NAD though poor inspiration. [0715] Discussed pt case with Dr. Simpson (hospitalist). F/U PMD; RETURN IF WORSE. NO CRITICAL CARE TIME - Diagnoses Provider Diagnoses: Uncontrolled hypertension, Dyspnea - Physician Notifications Discussed Care of Patient With: Antwon Simpson - Hospitalist Time Discussed With Above Provider: 07:15 Instructed by Provider To: Other - discussed pt case Discharge - Discharge Plan Condition: Stable Disposition: HOME Patient Education Materials: Hypertension (ED), Shortness of Breath (ED) Referrals: Shimon Zhong MD [Primary Care Provider] - Additional Instructions: FOLLOW UP WITH YOUR DOCTOR. TAKE YOUR MEDICATIONS DIRECTED. RETURN TO THE EMERGENCY DEPARTMENT FOR ANY WORSENING OF YOUR CONDITION OR QUESTIONS OR CONCERNS. Your blood pressure was elevated during todays visit; please follow up with your primary care provider within a week for further evaluation. The documentation as recorded by the Ramon jacobsen Nilda accurately reflects the service I personally performed and the decisions made by me, Pedro Amor MD.
--- NOTE | 2017-07-12 08:20 | RAD ---
Indication: Shortness of breath. Single frontal view of the chest performed at 0530 hours was reviewed. Comparison is made with previous exam dated July 09, 2017. No mediastinal shift is noted. Heart is of normal size and configuration. Lung reyna appear clear. IMPRESSION: NO ACTIVE CARDIOPULMONARY DISEASE IS NOTED.
== END 2017-07-12 08:17 | disposition home or self-care (01) ==
LOC: ED 03:27
DX: I10 Essential (primary) hypertension (principal); R06.00 Dyspnea, unspecified; R06.02 Shortness of breath; Z87.891 Personal history of nicotine dependence; R00.1 Bradycardia, unspecified
CPT/HCPCS: 36415; 71045; 80053; 83605; 83735; 83880; 84443; 84484; 85025; 85610; 85730; 86140; 93005; 99283; A9270-GY

== ENCOUNTER 2017-07-15 12:54 | Emergency (ER) | payer MEDICARE ==
--- NOTE | 2017-07-15 14:13 | RAD ---
INDICATION: Constipation. COMPARISON: There are no prior studies available for comparison. TECHNIQUE: Frontal supine films of the abdomen were obtained. FINDINGS: The small bowel and colon appear nondistended. There is a large amount retained stool. There are multiple calcifications which project bilaterally over the pelvis suggestive of phleboliths. IMPRESSION: LARGE AMOUNT RETAINED STOOL.
[2017-07-15] MEDS ORDERED: Magnesium CITRATE* 300 ML BTL PO ONE (14:19)
[2017-07-15 14:38] VITALS: BP 190/76
--- NOTE | 2017-07-15 17:53 | ED ---
Lety Montalvo Thomas, scribed for Wagner Leonardo MD on 07/15/17 at 1338 . GI/ HPI - HPI Summary HPI Summary: The patient is a 61 year old male complaining of constipation for the last seven days. He normally has a BM every 1-2 days. He was recently admitted for hypertension and discharged three days ago. He took Metamucil and stool softeners yesterday. - History of Current Complaint Chief Complaint: EDGeneral Time Seen by Provider: 07/15/17 13:06 Stated Complaint: CONSTIPATION Hx Obtained From: Patient Onset/Duration: Still Present Timing: Lasting Weeks - 1 Severity: Severe Pain Intensity: 3 Associated Signs and Symptoms: Positive: Other: - Constipation Aggravating Factor(s): Nothing Alleviating Factor(s): Nothing - Additional Pertinent History Primary Care Physician: CHAVO - Allergy/Home Medications Allergies/Adverse Reactions: Allergies Allergy/AdvReac Type Severity Reaction Status Date / Time gabapentin Allergy Intermediate Nausea Verified 07/11/17 08:51 hydrocodone Allergy Unknown Nausea Verified 07/11/17 08:51 PMH/Surg Hx/FS Hx/Imm Hx Endocrine/Hematology History: Reports: Hx Diabetes Cardiovascular History: Reports: Hx Cardiomegaly, Hx Hypercholesterolemia, Hx Hypertension Denies: Hx Pacemaker/ICD, Other Cardiovascular Problems/Disorders Respiratory History: Denies: Hx Chronic Obstructive Pulmonary Disease (COPD) GI History: Denies: Other GI Disorders History: Reports: Hx Chronic Renal Failure - stage 4 Denies: Hx Dialysis Musculoskeletal History: Reports: Hx Back Problems Sensory History: Reports: Hx Cataracts, Hx Contacts or Glasses - reading glasses Denies: Hx Hearing Aid Opthamlomology History: Reports: Hx Cataracts, Hx Contacts or Glasses - reading glasses Neurological History: Reports: Hx CVA, Other Neuro Impairments/Disorders - PAIN CLINIC PT Denies: Hx Dementia, Hx Seizures Psychiatric History: Denies: Hx Panic Disorder - Surgical History Surgery Procedure, Year, and Place: TUBES IN EARS CHILD; CATARACTS Hx Anesthesia Reactions: No Infectious Disease History: No Infectious Disease History: Denies: Traveled Outside the [place] in Last 30 Days - Family History Known Family History: Positive: Diabetes, Other - [place] - Social History Alcohol Use: None Hx Substance Use: No Substance Use Type: Reports: None Hx Tobacco Use: Yes Smoking Status (MU): Former Smoker Type: Cigarettes Have You Smoked in the Last Year: No Review of Systems Negative: Fever Positive: Other - Constipation All Other Systems Reviewed And Are Negative: Yes Physical Exam - Summary Physical Exam Summary: Appearance: The patient is well-nourished in no acute distress and in no acute pain. Skin: The skin is warm and dry and skin color reflects adequate perfusion. HEENT: The head is normocephalic and atraumatic. The pupils are equal and reactive. The conjunctivae are clear and without drainage. Nares are patent and without drainage. Mouth reveals moist mucous membranes and the throat is without erythema and exudate. The external ears are intact. The ear canals are patent and without drainage. The tympanic membranes are intact. Neck: the neck is supple with full range of motion and non-tender. There are no carotid bruits. There is no neck vein distension. Respiratory: Chest is non-tender. Lungs are clear to auscultation and breath sounds are symmetrical and equal. Cardiovascular: Heart is regular rate and rhythm.~There is no murmur or rub auscultated.~There is no peripheral edema and pulses are symmetrical and equal. Abdomen: The abdomen is soft and non-tender. There are normal bowel sounds heard in all four quadrants and there is no organomegaly palpated. Musculoskeletal: There is no back tenderness noted. Extremities are non-tender with full range of motion. There is good capillary refill. There is no peripheral edema or calf tenderness elicited. Neurological: Patient is alert and oriented to person, place and time. The patient has symmetrical motor strength in all four extremities. Cranial nerves are grossly intact. Deep tendon reflexes are symmetrical and equal in all four extremities. Psychiatric: The patient has an appropriate affect and does not exhibit any anxiety or depression. Triage Information Reviewed: Yes Vital Signs On Initial Exam: Initial Vitals Temp Pulse Resp BP Pulse Ox 97.7 F 50 22 204/84 97 07/15/17 12:55 07/15/17 12:55 07/15/17 12:55 07/15/17 12:55 07/15/17 12:55 Vital Signs Reviewed: Yes Diagnostics - Vital Signs Vital Signs Temp Pulse Resp BP Pulse Ox 07/15/17 12:55 97.7 F 50 22 204/84 97 - Laboratory Lab Statement: Any lab studies that have been ordered have been reviewed, and results considered in the medical decision making process. - Radiology XR Abdomen Xray Interpretation: Positive (See Comments) - LARGE AMOUNT RETAINED STOOL. Dr. Leonardo has reviewed this report. Radiology Interpretation Completed By: Radiologist GIGU Course/Dx - Course Course Of Treatment: Mr. Summers presented for constipation. He normally has a BM every other day and hasn't for at least 4 days. He tried a stool softener and metamucil yesterday. Hi sKUB showed retained stool and he was otherwise stable so I gave him some laxative to try at home. - Diagnoses Provider Diagnoses: Constipation Discharge - Discharge Plan Condition: Stable Disposition: HOME Patient Education Materials: Constipation (ED) Referrals: Shimon Zhong MD [Primary Care Provider] - 3 Days Additional Instructions: Follow up with your primary care physician in three days. Return to the emergency department for any new or worsening symptoms. The documentation as recorded by the Lety jacobsen Thomas accurately reflects the service I personally performed and the decisions made by me, Wagner Leonardo MD.
== END 2017-07-15 14:39 | disposition home or self-care (01) ==
LOC: ED 12:54
DX: K59.00 Constipation, unspecified (principal); I51.7 Cardiomegaly; E78.00 Pure hypercholesterolemia, unspecified; I12.9 Hypertensive chronic kidney disease with stage 1 through stage 4 chronic kidney disease, or unspecified chronic kidney disease; E11.22 Type 2 diabetes mellitus with diabetic chronic kidney disease; N18.4 Chronic kidney disease, stage 4 (severe); Z99.2 Dependence on renal dialysis; Z79.4 Long term (current) use of insulin; Z88.5 Allergy status to narcotic agent; Z87.891 Personal history of nicotine dependence
CPT/HCPCS: 74018; 99282; A9270-GY

== ENCOUNTER 2019-11-15 14:42 | Observation (INO) ==
[2019-11-15] MEDS ORDERED: NS 0.9% 1000 ml BAG 1,000 ML IV ONE (15:24)
[2019-11-15 16:03] LABS: ABS Lymphocytes 0.9 10^3/ul (1.0-4.8); ABS Monocytes 0.9 10^3/ul (0-0.8); Eosinophil % 0.3 %; Hematocrit 20 % (42-52); Lymphocyte % 9.9 %; Mean Corpuscular HGB Conc 34 g/dL (31-36); Mean Corpuscular Hemoglobin 28 pg (27-31); Mean Corpuscular Volume 81 fL (80-94); Mean Platelet Volume 8.3 fL (7.4-10.4); Platelet Count 202 10^3/uL (150-450); Red Blood Count 2.53 10^6 /uL (4.18-5.48); Red Cell Distribution Width 14 % (10-15); White Blood Count 8.9 10^3/uL (3.5-10.8)
[2019-11-15 16:05] LABS: Urine Appearance Cloudy; Urine Bilirubin Negative (Negative); Urine Blood Negative (Negative); Urine Color Yellow; Urine Glucose 1+(50 mg/dL) (Negative); Urine Ketones Negative (Negative); Urine Nitrite Negative (Negative); Urine Protein 2+(100 mg/dL) (Negative); Urine Specific Gravity 1.012 (1.010-1.030); Urine Urobilinogen Negative (Negative)
[2019-11-15 16:14] LABS: Urine Bacteria Absent (Absent); Urine Red Blood Cell 3+(>10/hpf) (Absent); Urine Squamous Epithelial Cell Present (Absent); Urine White Blood Cell Trace(0-5/hpf) (Absent)
[2019-11-15 16:21] LABS: ALT 117 U/L (7-52); AST 67 U/L (13-39); Albumin 3.5 g/dL (3.2-5.2); Albumin/Globulin Ratio 1.3 (1-3); Alkaline Phosphatase 75 U/L (34-104); Anion Gap 8 mmol/L (2-11); BUN/Creatinine Ratio 16.6 (8-20); Blood Urea Nitrogen 63 mg/dL (6-24); CO2 Carbon Dioxide 24 mmol/L (22-32); Calcium 8.9 mg/dL (8.6-10.3); Chloride 105 mmol/L (101-111); EGFR African American 19.5 (>60); EGFR Non-African American 16.1 (>60); Globulin 2.8 g/dL (2-4); Glucose 162 mg/dL (70-100); Potassium 4.2 mmol/L (3.5-5.0); Sodium 137 mmol/L (135-145); Total Protein 6.3 g/dL (6.4-8.9)
[2019-11-15 16:27] LABS: Troponin I 0.09 ng/mL (<0.03)
[2019-11-15 18:26] LABS: TSH (Thyroid Stimulating Horm) 1.95 mcIU/mL (0.34-5.60)
[2019-11-15] MEDS ORDERED: cloNIDine 0.3 MG PATCH 0.3 MG/24 HR 7 DAY PATCH TRANSDERM SCH (19:00)
[2019-11-15] MEDS ORDERED: Dextrose 50% Syringe 50 ml 25 GM/50 ML SYRINGE IV PUSH PRN (20:42)
[2019-11-15 21:34] LABS: Troponin I 0.08 ng/mL (<0.03)
[2019-11-16 00:47] LABS: Hematocrit 23 % (42-52); Hemoglobin 7.6 g/dL (14.0-18.0)
[2019-11-16 06:21] LABS: Hematocrit 23 % (42-52); Hemoglobin 7.6 g/dL (14.0-18.0); Mean Corpuscular HGB Conc 34 g/dL (31-36); Mean Corpuscular Hemoglobin 27 pg (27-31); Mean Corpuscular Volume 82 fL (80-94); Mean Platelet Volume 7.9 fL (7.4-10.4); Platelet Count 184 10^3/uL (150-450); Red Blood Count 2.76 10^6 /uL (4.18-5.48); Red Cell Distribution Width 14 % (10-15)
[2019-11-16 06:39] LABS: Anion Gap 7 mmol/L (2-11); BUN/Creatinine Ratio 15.9 (8-20); Blood Urea Nitrogen 55 mg/dL (6-24); CO2 Carbon Dioxide 24 mmol/L (22-32); Calcium 8.7 mg/dL (8.6-10.3); Chloride 105 mmol/L (101-111); EGFR African American 21.6 (>60); EGFR Non-African American 17.8 (>60); Glucose 145 mg/dL (70-100); Potassium 4.3 mmol/L (3.5-5.0); Sodium 136 mmol/L (135-145)
[2019-11-16 06:43] LABS: Troponin I 0.08 ng/mL (<0.03)
[2019-11-17 08:14] LABS: ABS Eosinophils 0.1 10^3/ul (0-0.6); ABS Lymphocytes 0.9 10^3/ul (1.0-4.8); ABS Monocytes 0.8 10^3/ul (0-0.8); Eosinophil % 1.8 %; Hematocrit 26 % (42-52); Lymphocyte % 11.8 %; Mean Corpuscular HGB Conc 34 g/dL (31-36); Mean Corpuscular Hemoglobin 28 pg (27-31); Mean Corpuscular Volume 83 fL (80-94); Mean Platelet Volume 7.5 fL (7.4-10.4); Platelet Count 188 10^3/uL (150-450); Red Blood Count 3.19 10^6 /uL (4.18-5.48); Red Cell Distribution Width 14 % (10-15); White Blood Count 7.6 10^3/uL (3.5-10.8)
[2019-11-17 15:31] VITALS: BP 153/69
== END 2019-11-17 17:30 | disposition home or self-care (01) ==
LOC: ED 14:42 → MEDTELE 14:42
PROVIDERS: ADMIT Hospitalist; ATTEND Internal Medicine

== ENCOUNTER 2020-03-28 19:56 | Observation (INO) ==
[2020-03-28 21:48] LABS: ABS Eosinophils 0.1 10^3/ul (0-0.6); ABS Lymphocytes 0.8 10^3/ul (1.0-4.8); ABS Monocytes 0.8 10^3/ul (0-0.8); ABS Neutrophils 5.1 10^3/ul (1.5-7.7); Eosinophil % 1.7 %; Hematocrit 22 % (42-52); Hemoglobin 7.4 g/dL (14.0-18.0); Lymphocyte % 12.1 %; Mean Corpuscular HGB Conc 34 g/dL (31-36); Mean Corpuscular Hemoglobin 27 pg (27-31); Mean Corpuscular Volume 79 fL (80-94); Mean Platelet Volume 7.5 fL (7.4-10.4); Platelet Count 218 10^3/uL (150-450); Red Blood Count 2.79 10^6 /uL (4.18-5.48); Red Cell Distribution Width 15 % (10-15); White Blood Count 6.9 10^3/uL (3.5-10.8)
[2020-03-28 21:56] LABS: Activated Partial Thrombo Time 30.5 seconds (26.0-38.0); INR 1.17 (0.82-1.09)
[2020-03-28 22:04] LABS: Albumin 3.5 g/dL (3.2-5.2); Albumin/Globulin Ratio 1.6 (1-3); BUN/Creatinine Ratio 17.1 (8-20); Calcium 8.3 mg/dL (8.6-10.3); EGFR African American 17.6 (>60); EGFR Non-African American 14.6 (>60); Globulin 2.2 g/dL (2-4); Potassium 4.3 mmol/L (3.5-5.0); Total Bilirubin 0.3 mg/dL (0.2-1.0); Total Protein 5.7 g/dL (6.4-8.9)
[2020-03-29 05:49] LABS: ABS Eosinophils 0.2 10^3/ul (0-0.6); ABS Lymphocytes 1.2 10^3/ul (1.0-4.8); ABS Monocytes 0.8 10^3/ul (0-0.8); ABS Neutrophils 5.5 10^3/ul (1.5-7.7); Eosinophil % 2.3 %; Hematocrit 25 % (42-52); Hemoglobin 8.2 g/dL (14.0-18.0); Mean Corpuscular HGB Conc 33 g/dL (31-36); Mean Corpuscular Hemoglobin 26 pg (27-31); Mean Corpuscular Volume 80 fL (80-94); Mean Platelet Volume 7.9 fL (7.4-10.4); Platelet Count 207 10^3/uL (150-450); Red Blood Count 3.08 10^6 /uL (4.18-5.48); Red Cell Distribution Width 16 % (10-15); White Blood Count 7.7 10^3/uL (3.5-10.8)
[2020-03-29 06:05] LABS: BUN/Creatinine Ratio 18.1 (8-20); Calcium 8.3 mg/dL (8.6-10.3); EGFR African American 18.5 (>60); EGFR Non-African American 15.3 (>60); Potassium 4.3 mmol/L (3.5-5.0)
[2020-03-29] MEDS ORDERED: Furosemide 20 mg/2 ml IV VIAL IV ONE (11:25)
[2020-03-29] MEDS: FERROUS SULFATE 27 MG PO SCH (11:46)
[2020-03-29] MEDS ORDERED: Furosemide 40 mg/4 ml IV VIAL IV ONE (12:00)
[2020-03-29] MEDS ORDERED: Furosemide 100 mg/10 ml IV VIAL IV ONE (12:40)
[2020-03-29] MEDS: Furosemide 100 mg/10 ml IV VIAL IV SCH (20:19)
[2020-03-30 05:55] LABS: ABS Eosinophils 0.1 10^3/ul (0-0.6); ABS Lymphocytes 0.9 10^3/ul (1.0-4.8); ABS Monocytes 0.6 10^3/ul (0-0.8); ABS Neutrophils 4.8 10^3/ul (1.5-7.7); Eosinophil % 2.1 %; Hematocrit 25 % (42-52); Hemoglobin 8.4 g/dL (14.0-18.0); Mean Corpuscular HGB Conc 34 g/dL (31-36); Mean Corpuscular Hemoglobin 27 pg (27-31); Mean Corpuscular Volume 78 fL (80-94); Mean Platelet Volume 7.5 fL (7.4-10.4); Platelet Count 211 10^3/uL (150-450); Red Blood Count 3.13 10^6 /uL (4.18-5.48); Red Cell Distribution Width 15 % (10-15); White Blood Count 6.5 10^3/uL (3.5-10.8)
[2020-03-30 06:06] LABS: BUN/Creatinine Ratio 18.1 (8-20); Calcium 8.9 mg/dL (8.6-10.3); EGFR African American 18.5 (>60); EGFR Non-African American 15.3 (>60); Potassium 4.3 mmol/L (3.5-5.0)
[2020-03-30] MEDS: Furosemide 100 mg/10 ml IV VIAL IV SCH ×3 (07:49→21:28)
[2020-03-30] MEDS ORDERED: Heparin 1,000 UNIT/ML 10 ml (10,000 UNITS) CATHLAB/DIALYSIS DIALYSIS ONE (09:00)
[2020-03-30 09:52] LABS: Hepatitis B Surface Antigen Nonreactive (Nonreactive)
[2020-03-30 10:09] LABS: Hepatitis B Surface Ab Immune (Immune)
[2020-03-31 07:03] LABS: Hematocrit 28 % (42-52); Hemoglobin 9.4 g/dL (14.0-18.0)
[2020-03-31 07:31] LABS: BUN/Creatinine Ratio 17.8 (8-20); EGFR African American 16.5 (>60); EGFR Non-African American 13.6 (>60)
[2020-03-31] MEDS: FERROUS SULFATE 27 MG PO SCH (09:09)
[2020-03-31] MEDS ORDERED: ceFAZolin 2 GM PREMIX 2 GM/50 ML BAG ONE (14:46)
[2020-03-31] MEDS ORDERED: Ondansetron 4 mg VIAL 2 MG/ML 2 ml VIAL ONE (14:58)
[2020-03-31] MEDS ORDERED: Lidocaine 2% PF 5 ML VIAL ONE (14:58)
[2020-03-31] MEDS ORDERED: Propofol 10 MG/ML 20 ML BTL ONE (14:58)
[2020-03-31] MEDS ORDERED: Rocuronium 50 mg VIAL 10 mg/ml 5 ml VIAL (50 mg) ONE ×2 (14:58→18:01)
[2020-03-31] MEDS ORDERED: fentaNYL 250 mcg/5 ml 50 MCG/ML 5 ml VIAL (250 MCG) ONE (14:59)
[2020-03-31] MEDS ORDERED: Heparin 5000 UNITS/ML 1 mL VIAL ONE (15:41)
[2020-03-31] MEDS ORDERED: Buffered Lidocaine 1% SYRIN 1 ml INTRADERM ONE (15:45)
[2020-03-31] MEDS ORDERED: NS 0.45% 1000 ml BAG 1,000 ML IV SCH (16:00)
[2020-03-31] MEDS ORDERED: Etomidate 20 mg/10 ml 2 MG/ML 10 ml VIAL ONE (16:14)
[2020-03-31] MEDS ORDERED: Glycopyrrolate IV 0.2 MG/ML 1 ML VIAL ONE (16:16)
[2020-03-31] MEDS ORDERED: Neostigmine Methylsulfate 1 MG/ML 10 ML VIAL (1 mg/ml) ONE (16:16)
[2020-03-31] MEDS ORDERED: Bupivacaine 0.25% SDV 30 ML ONE (17:59)
[2020-03-31] MEDS ORDERED: Naloxone 0.4 mg VIAL 0.4 mg/ml 1 ml VIAL IV PRN (19:05)
[2020-03-31] MEDS ORDERED: DiMENhydriNATE IV 50 mg/ml 1 ml VIAL IV PUSH PRN (19:05)
[2020-03-31] MEDS ORDERED: diPHENhydraMINE IV 50 MG/ML 1 ml VIAL (BENADRYL) IV PRN (19:05)
[2020-03-31] MEDS ORDERED: fentaNYL 100 mcg/2 ml 50 MCG/ML VIAL IV PRN (19:05)
[2020-03-31 19:37] LABS: Magnesium 2.2 mg/dL (1.9-2.7); Phosphorus 5.5 mg/dL (2.5-5.0)
[2020-03-31 19:53] LABS: Troponin I 0.05 ng/mL (<0.03)
[2020-03-31] MEDS ORDERED: Morphine 2 MG/ML SYRINGE IV PRN (20:34)
[2020-03-31] MEDS ORDERED: Ondansetron 4 mg VIAL 2 MG/ML 2 ml VIAL IV PRN (20:36)
[2020-04-01 06:05] LABS: ABS Eosinophils 0.1 10^3/ul (0-0.6); ABS Monocytes 0.8 10^3/ul (0-0.8); ABS Neutrophils 8.3 10^3/ul (1.5-7.7); Eosinophil % 0.8 %; Hematocrit 29 % (42-52); Hemoglobin 9.8 g/dL (14.0-18.0); Lymphocyte % 9.4 %; Mean Corpuscular HGB Conc 34 g/dL (31-36); Mean Corpuscular Hemoglobin 27 pg (27-31); Mean Corpuscular Volume 79 fL (80-94); Mean Platelet Volume 7.9 fL (7.4-10.4); Platelet Count 238 10^3/uL (150-450); Red Blood Count 3.67 10^6 /uL (4.18-5.48); Red Cell Distribution Width 15 % (10-15); White Blood Count 10.2 10^3/uL (3.5-10.8)
[2020-04-01 06:13] LABS: Calcium 8.9 mg/dL (8.6-10.3); EGFR African American 15.5 (>60); EGFR Non-African American 12.8 (>60)
[2020-04-01] MEDS ORDERED: Dextrose 50% Syringe 50 ml 25 GM/50 ML SYRINGE IV PUSH PRN (07:36)
[2020-04-01 08:20] LABS: Troponin I 0.05 ng/mL (<0.03)
[2020-04-02 07:18] LABS: BUN/Creatinine Ratio 15.5 (8-20); Calcium 8.9 mg/dL (8.6-10.3); EGFR African American 14.7 (>60); EGFR Non-African American 12.2 (>60); Potassium 4.4 mmol/L (3.5-5.0)
[2020-04-02] MEDS ORDERED: cloNIDine 0.3 MG PATCH 0.3 MG/24 HR 7 DAY PATCH TRANSDERM SCH (09:00)
[2020-04-02 12:05] VITALS: BP 146/67
== END 2020-04-02 14:45 | disposition home health service (06) | DRG 982 ==
LOC: ED 19:56 → SSU 19:56
PROVIDERS: ADMIT Internal Medicine; ATTEND Internal Medicine

== ENCOUNTER 2020-04-09 12:17 | Inpatient (IN) ==
[2020-04-09 13:20] LABS: ABS Eosinophils 0.1 10^3/ul (0-0.6); ABS Lymphocytes 0.9 10^3/ul (1.0-4.8); ABS Monocytes 0.7 10^3/ul (0-0.8); ABS Neutrophils 8.4 10^3/ul (1.5-7.7); Eosinophil % 1.4 %; Hematocrit 28 % (42-52); Hemoglobin 9.5 g/dL (14.0-18.0); Lymphocyte % 8.6 %; Mean Corpuscular HGB Conc 34 g/dL (31-36); Mean Corpuscular Hemoglobin 27 pg (27-31); Mean Corpuscular Volume 78 fL (80-94); Mean Platelet Volume 7.6 fL (7.4-10.4); Platelet Count 223 10^3/uL (150-450); Red Blood Count 3.57 10^6 /uL (4.18-5.48); Red Cell Distribution Width 15 % (10-15); White Blood Count 10.2 10^3/uL (3.5-10.8)
[2020-04-09 13:27] LABS: INR 1.1 (0.82-1.09)
[2020-04-09 13:38] LABS: ALT 12 U/L (7-52); AST 21 U/L (13-39); Albumin 4.1 g/dL (3.2-5.2); Albumin/Globulin Ratio 1.4 (1-3); Alkaline Phosphatase 80 U/L (34-104); Anion Gap 9 mmol/L (2-11); BUN/Creatinine Ratio 17.8 (8-20); Blood Urea Nitrogen 76 mg/dL (6-24); C Reactive Protein 1.15 mg/L (<8.01); CO2 Carbon Dioxide 28 mmol/L (22-32); Calcium 9.3 mg/dL (8.6-10.3); Chloride 99 mmol/L (101-111); EGFR African American 16.9 (>60); Globulin 2.9 g/dL (2-4); Glucose 198 mg/dL (70-100); Potassium 3.9 mmol/L (3.5-5.0); Sodium 136 mmol/L (135-145)
[2020-04-09 13:44] LABS: Troponin I 0.08 ng/mL (<0.03)
[2020-04-09] MEDS ORDERED: Bumetanide IV 0.25 MG/ML 4 ml VIAL (1 mg) SLOW PUSH ONE (14:50)
[2020-04-10 07:58] LABS: ABS Eosinophils 0.2 10^3/ul (0-0.6); ABS Lymphocytes 1.2 10^3/ul (1.0-4.8); ABS Monocytes 0.8 10^3/ul (0-0.8); Hematocrit 28 % (42-52); Hemoglobin 9.6 g/dL (14.0-18.0); Lymphocyte % 14.9 %; Mean Corpuscular HGB Conc 34 g/dL (31-36); Mean Corpuscular Hemoglobin 27 pg (27-31); Mean Corpuscular Volume 78 fL (80-94); Mean Platelet Volume 7.3 fL (7.4-10.4); Platelet Count 229 10^3/uL (150-450); Red Cell Distribution Width 15 % (10-15); White Blood Count 8.3 10^3/uL (3.5-10.8)
[2020-04-10 08:16] LABS: Albumin 3.9 g/dL (3.2-5.2); Albumin/Globulin Ratio 1.4 (1-3); BUN/Creatinine Ratio 18.1 (8-20); Calcium 9.1 mg/dL (8.6-10.3); EGFR African American 17.4 (>60); EGFR Non-African American 14.4 (>60); Globulin 2.8 g/dL (2-4); Potassium 3.9 mmol/L (3.5-5.0); Total Bilirubin 0.5 mg/dL (0.2-1.0); Total Protein 6.7 g/dL (6.4-8.9)
[2020-04-10] MEDS ORDERED: cloNIDine 0.3 MG PATCH 0.3 MG/24 HR 7 DAY PATCH TRANSDERM SCH ×2 (09:00→09:30)
[2020-04-10] MEDS ORDERED: Furosemide 40 mg/4 ml IV VIAL IV SCH (09:00)
[2020-04-10] MEDS: Aspirin EC 81 mg TAB.EC (enteric coated) PO SCH (09:16)
[2020-04-10] MEDS: Cholecalciferol (VIT D3) 1,000 unit TAB PO SCH (09:17)
[2020-04-10] MEDS: Bumetanide IV 0.25 MG/ML 4 ml VIAL (1 mg) SLOW PUSH SCH (09:18)
[2020-04-10] MEDS ORDERED: Dextrose 50% Syringe 50 ml 25 GM/50 ML SYRINGE IV PUSH PRN (15:57)
[2020-04-10] MEDS: Mometasone/Formoter 200/5 MDI INH SCH ×2 (16:54→20:32)
[2020-04-11] MEDS: Mometasone/Formoter 200/5 MDI INH SCH ×2 (08:19→21:01)
[2020-04-11] MEDS: Aspirin EC 81 mg TAB.EC (enteric coated) PO SCH (08:40)
[2020-04-11] MEDS: Cholecalciferol (VIT D3) 1,000 unit TAB PO SCH (08:41)
[2020-04-11] MEDS: Bumetanide IV 0.25 MG/ML 4 ml VIAL (1 mg) SLOW PUSH SCH ×3 (08:42→20:30)
[2020-04-11 09:32] LABS: ABS Eosinophils 0.2 10^3/ul (0-0.6); ABS Lymphocytes 1.2 10^3/ul (1.0-4.8); ABS Monocytes 0.7 10^3/ul (0-0.8); ABS Neutrophils 5.7 10^3/ul (1.5-7.7); Eosinophil % 2.1 %; Hematocrit 27 % (42-52); Lymphocyte % 14.9 %; Mean Corpuscular HGB Conc 34 g/dL (31-36); Mean Corpuscular Hemoglobin 27 pg (27-31); Mean Corpuscular Volume 78 fL (80-94); Mean Platelet Volume 7.5 fL (7.4-10.4); Platelet Count 207 10^3/uL (150-450); Red Blood Count 3.41 10^6 /uL (4.18-5.48); Red Cell Distribution Width 15 % (10-15); White Blood Count 7.8 10^3/uL (3.5-10.8)
[2020-04-11 09:47] LABS: BUN/Creatinine Ratio 18.4 (8-20); Calcium 8.8 mg/dL (8.6-10.3); EGFR African American 17.6 (>60); EGFR Non-African American 14.6 (>60); Potassium 3.9 mmol/L (3.5-5.0)
[2020-04-12] MEDS: Mometasone/Formoter 200/5 MDI INH SCH ×2 (08:46→20:57)
[2020-04-12] MEDS: Bumetanide IV 0.25 MG/ML 4 ml VIAL (1 mg) SLOW PUSH SCH (09:29)
[2020-04-12] MEDS: Cholecalciferol (VIT D3) 1,000 unit TAB PO SCH (09:33)
[2020-04-12] MEDS: Aspirin EC 81 mg TAB.EC (enteric coated) PO SCH (09:33)
[2020-04-12] MEDS ORDERED: Bumetanide IV 0.25 MG/ML 4 ml VIAL (1 mg) IV ONE (10:00)
[2020-04-12] MEDS ORDERED: Bumetanide IV 0.25 MG/ML 4 ml VIAL (1 mg) SLOW PUSH SCH (21:00)
[2020-04-13 06:10] LABS: ABS Eosinophils 0.1 10^3/ul (0-0.6); ABS Lymphocytes 1.3 10^3/ul (1.0-4.8); ABS Monocytes 0.8 10^3/ul (0-0.8); ABS Neutrophils 6.7 10^3/ul (1.5-7.7); Eosinophil % 1.1 %; Hematocrit 31 % (42-52); Hemoglobin 10.4 g/dL (14.0-18.0); Lymphocyte % 14.1 %; Mean Corpuscular HGB Conc 34 g/dL (31-36); Mean Corpuscular Hemoglobin 26 pg (27-31); Mean Corpuscular Volume 78 fL (80-94); Mean Platelet Volume 7.7 fL (7.4-10.4); Platelet Count 256 10^3/uL (150-450); Red Blood Count 3.94 10^6 /uL (4.18-5.48); Red Cell Distribution Width 15 % (10-15); White Blood Count 8.9 10^3/uL (3.5-10.8)
[2020-04-13 06:25] LABS: BUN/Creatinine Ratio 18.7 (8-20); Calcium 9.4 mg/dL (8.6-10.3); EGFR African American 15.4 (>60); EGFR Non-African American 12.7 (>60); Potassium 3.6 mmol/L (3.5-5.0)
[2020-04-13] MEDS: Mometasone/Formoter 200/5 MDI INH SCH (08:30)
[2020-04-13] MEDS: Cholecalciferol (VIT D3) 1,000 unit TAB PO SCH (10:07)
[2020-04-13] MEDS: Aspirin EC 81 mg TAB.EC (enteric coated) PO SCH (10:08)
[2020-04-13 11:36] VITALS: BP 144/64
== END 2020-04-13 13:14 | disposition home or self-care (01) | DRG 291 ==
LOC: ED 12:17 → MEDTELE 15:43
PROVIDERS: ADMIT Internal Medicine; ATTEND Internal Medicine

== ENCOUNTER 2020-04-27 20:18 | Inpatient (IN) ==
[2020-04-28] MEDS ORDERED: Ondansetron 4 mg VIAL 2 MG/ML 2 ml VIAL IV ONE (00:34)
[2020-04-28 01:27] LABS: ABS Eosinophils 0.1 10^3/ul (0-0.6); ABS Lymphocytes 0.9 10^3/ul (1.0-4.8); ABS Monocytes 0.8 10^3/ul (0-0.8); ABS Neutrophils 6.1 10^3/ul (1.5-7.7); Eosinophil % 1.4 %; Hematocrit 24 % (42-52); Lymphocyte % 10.9 %; Mean Corpuscular HGB Conc 34 g/dL (31-36); Mean Corpuscular Hemoglobin 26 pg (27-31); Mean Corpuscular Volume 77 fL (80-94); Mean Platelet Volume 7.2 fL (7.4-10.4); Platelet Count 231 10^3/uL (150-450); Red Blood Count 3.05 10^6 /uL (4.18-5.48); Red Cell Distribution Width 15 % (10-15); White Blood Count 7.9 10^3/uL (3.5-10.8)
[2020-04-28 01:29] LABS: Urine Appearance Cloudy; Urine Bilirubin Negative (Negative); Urine Blood Negative (Negative); Urine Color Yellow; Urine Glucose 2+(150 mg/dL) (Negative); Urine Ketones Negative (Negative); Urine Nitrite Negative (Negative); Urine Protein 3+(>=500 mg/dL) (Negative); Urine Specific Gravity 1.012 (1.010-1.030); Urine Urobilinogen Negative (Negative)
[2020-04-28 01:32] LABS: INR 1.22 (0.82-1.09)
[2020-04-28 01:45] LABS: ALT 25 U/L (7-52); AST 25 U/L (13-39); Albumin 3.8 g/dL (3.2-5.2); Albumin/Globulin Ratio 1.4 (1-3); Alkaline Phosphatase 66 U/L (34-104); Anion Gap 11 mmol/L (2-11); BUN/Creatinine Ratio 20.6 (8-20); Blood Urea Nitrogen 96 mg/dL (6-24); CO2 Carbon Dioxide 24 mmol/L (22-32); Chloride 100 mmol/L (101-111); EGFR African American 15.3 (>60); EGFR Non-African American 12.7 (>60); Globulin 2.7 g/dL (2-4); Glucose 155 mg/dL (70-100); Magnesium 1.9 mg/dL (1.9-2.7); Potassium 4.1 mmol/L (3.5-5.0); Sodium 135 mmol/L (135-145); Total Protein 6.5 g/dL (6.4-8.9)
[2020-04-28 01:49] LABS: Urine Bacteria 1+ (Absent); Urine Red Blood Cell Trace(0-2/hpf) (Absent); Urine White Blood Cell Trace(0-5/hpf) (Absent)
[2020-04-28 01:50] LABS: Troponin I 0.08 ng/mL (<0.03)
[2020-04-28 02:04] LABS: TSH Ultra Thyroid Stim Horm 3.25 mcIU/mL (0.34-5.60)
[2020-04-28] MEDS ORDERED: Bumetanide IV 0.25 MG/ML 4 ml VIAL (1 mg) SLOW PUSH ONE ×2 (03:56→06:06)
[2020-04-28 05:41] LABS: Troponin I 0.07 ng/mL (<0.03)
[2020-04-28] MEDS ORDERED: Clindamycin 600 MG/D5W BAG 600 MG/50 ML BAG IV ONE (09:38)
[2020-04-28] MEDS ORDERED: cloNIDine 0.3 MG PATCH 0.3 MG/24 HR 7 DAY PATCH TRANSDERM SCH (10:00)
[2020-04-28] MEDS ORDERED: Lidocaine 1% VIAL 10 MG/ML VIAL ONE (11:25)
[2020-04-28] MEDS ORDERED: Heparin 2 UNITS/ML 1000 mls 1,000 ML IV ONE (11:25)
[2020-04-28] MEDS ORDERED: Midazolam 5 mg/5 ml VIAL 1 mg/ml 5 ml VIAL (5 mg) ONE (11:44)
[2020-04-28] MEDS ORDERED: fentaNYL 100 mcg/2 ml 50 MCG/ML VIAL ONE (11:44)
[2020-04-28] MEDS ORDERED: Heparin 1,000 UNIT/ML 10 ml (10,000 UNITS) CATHLAB/DIALYSIS ONE (12:15)
[2020-04-28] MEDS ORDERED: Heparin 5000 UNITS/ML 1 mL VIAL SUBCUT SCH (14:00)
[2020-04-28] MEDS ORDERED: NS 0.9% IV PRN (16:30)
[2020-04-28] MEDS ORDERED: Heparin 1,000 UNIT/ML 10 ml (10,000 UNITS) CATHLAB/DIALYSIS DIALYSIS ONE (17:00)
[2020-04-28] MEDS: Aspirin EC 81 mg TAB.EC (enteric coated) PO SCH (20:51)
[2020-04-29] MEDS: Al Hydrox/Mg Hydrox/Simet LIQ 30 ML UDC PO PRN ×2 (02:24→12:51)
[2020-04-29 06:14] LABS: ABS Eosinophils 0.2 10^3/ul (0-0.6); ABS Lymphocytes 1.2 10^3/ul (1.0-4.8); ABS Monocytes 0.7 10^3/ul (0-0.8); Eosinophil % 1.9 %; Hematocrit 24 % (42-52); Hemoglobin 8.1 g/dL (14.0-18.0); Lymphocyte % 15.1 %; Mean Corpuscular HGB Conc 34 g/dL (31-36); Mean Corpuscular Hemoglobin 26 pg (27-31); Mean Corpuscular Volume 78 fL (80-94); Mean Platelet Volume 7.7 fL (7.4-10.4); Platelet Count 217 10^3/uL (150-450); Red Blood Count 3.09 10^6 /uL (4.18-5.48); Red Cell Distribution Width 16 % (10-15); White Blood Count 8.1 10^3/uL (3.5-10.8)
[2020-04-29 06:21] LABS: INR 1.16 (0.82-1.09)
[2020-04-29 06:26] LABS: Anion Gap 8 mmol/L (2-11); BUN/Creatinine Ratio 17.4 (8-20); Blood Urea Nitrogen 67 mg/dL (6-24); C Reactive Protein < 1.00 mg/L (<8.01); CO2 Carbon Dioxide 26 mmol/L (22-32); Calcium 8.7 mg/dL (8.6-10.3); Chloride 102 mmol/L (101-111); EGFR African American 19.2 (>60); EGFR Non-African American 15.8 (>60); Glucose 140 mg/dL (70-100); Potassium 3.8 mmol/L (3.5-5.0); Sodium 136 mmol/L (135-145)
[2020-04-29] MEDS: Aspirin EC 81 mg TAB.EC (enteric coated) PO SCH (09:48)
[2020-04-29 13:33] LABS: Hepatitis B Surface Antigen Nonreactive (Nonreactive)
[2020-04-29 13:51] LABS: Hepatitis B Surface Ab Immune (Immune)
[2020-04-29] MEDS ORDERED: Heparin 1,000 UNIT/ML 10 ml (10,000 UNITS) CATHLAB/DIALYSIS DIALYSIS ONE (14:00)
[2020-04-29] MEDS: Heparin 1,000 UNIT/ML 10 ml (10,000 UNITS) CATHLAB/DIALYSIS DIALYSIS ONE ×2 (15:00→18:25)
[2020-04-29 16:54] VITALS: BP 166/79
== END 2020-04-29 19:05 | disposition home or self-care (01) ==
LOC: ED 20:18 → OBSVTOIN 04-28 04:31 → INTOOBSV 04-28 09:53 → MED 04-28 09:53
PROVIDERS: ADMIT Internal Medicine; ATTEND Internal Medicine

== ENCOUNTER 2023-05-29 02:15 | Inpatient (IN) ==
[2023-05-29 03:11] LABS: ABS Basophils 0.1 10^3/uL (0.0-0.1); ABS Eosinophils 0.1 10^3/uL (0.0-0.5); ABS Lymphocytes 1.3 10^3/uL (1.0-4.8); ABS Monocytes 0.5 10^3/uL (0.0-1.1); ABS Neutrophils 7.6 10^3/uL (1.5-7.6); Eosinophil % 0.9 %; Hematocrit 35.7 % (38-53); Hemoglobin 11.8 g/dL (13.2-16.3); Lymphocyte % 13.5 %; Mean Corpuscular Hemoglobin 28.1 pg (27-33); Mean Corpuscular Volume 85.1 fL (80-97); Mean Platelet Volume 8.5 fL (7.5-11.2); Platelet Count 189 10^3/uL (150-450); Red Cell Distribution Width 16.2 % (12-17); White Blood Count 9.5 10^3/uL (3.6-10.2)
[2023-05-29 03:27] LABS: Activated Partial Thrombo Time 26.9 seconds (26.0-38.0); INR 1.09 (0.83-1.13)
[2023-05-29 03:37] LABS: ALT 11 U/L (7-52); Albumin 3.9 g/dL (3.2-5.2); Albumin/Globulin Ratio 1.3 (1-3); Alkaline Phosphatase 54 U/L (35-149); Anion Gap 15 mmol/L (2-16); Blood Urea Nitrogen 55 mg/dL (6-24); CO2 Carbon Dioxide 29 mmol/L (22-32); Calcium 9.7 mg/dL (8.6-10.3); Chloride 90 mmol/L (101-111); Creatinine, Serum 10.08 mg/dL (0.67-1.17); Globulin 3.1 g/dL (2-4); Glucose 189 mg/dL (70-100); Sodium 134 mmol/L (135-145); Total Bilirubin 0.6 mg/dL (0.2-1.0); eGFR CKD-EPI 5.1 (>60)
[2023-05-29 03:40] LABS: High Sens Troponin Baseline 173 pg/mL (<20)
[2023-05-29] MEDS ORDERED: Furosemide 40 mg/4 ml IV VIAL IV SLOW PU ONE (04:06)
[2023-05-29 04:34] LABS: Magnesium 2.2 mg/dL (1.9-2.7); Potassium Redraw 3.8 mmol/L (3.5-5.0)
[2023-05-29] MEDS ORDERED: Albuterol 2.5mg/3 ml (0.083%) NEB.SOLN INH PRN (05:29)
[2023-05-29] MEDS ORDERED: Dextrose 50% Syringe 50 ml 25 GM/50 ML SYRINGE IV PUSH PRN (06:58)
[2023-05-29] MEDS ORDERED: NS 0.9% 1000 ml BAG 200 ML IV PRN (07:36)
[2023-05-29] MEDS ORDERED: NS 0.9% 1000 ml BAG 100 ML IV PRN (07:36)
[2023-05-29] MEDS: Aspirin EC 81 mg TAB.EC (enteric coated) PO SCH (09:12)
[2023-05-29] MEDS: Lanthanum 500 mg CHEW TAB PO SCH ×3 (09:14→18:07)
[2023-05-29] MEDS: SUCROFERRIC OXYHYDROXIDE 500 MG PO SCH ×3 (09:46→17:53)
[2023-05-29 15:34] LABS: Hepatitis B Surface Antigen Nonreactive (Nonreactive)
[2023-05-29 15:52] LABS: Hepatitis B Surface Ab Immune (Immune)
[2023-05-30 05:54] LABS: ABS Basophils 0.1 10^3/uL (0.0-0.1); ABS Eosinophils 0.1 10^3/uL (0.0-0.5); ABS Lymphocytes 1.2 10^3/uL (1.0-4.8); ABS Monocytes 0.7 10^3/uL (0.0-1.1); ABS Neutrophils 6.4 10^3/uL (1.5-7.6); ABS Nucleated RBC 0.01 10^3/ul; Eosinophil % 1.2 %; Hematocrit 35.4 % (38-53); Hemoglobin 11.6 g/dL (13.2-16.3); Mean Corpuscular Hemoglobin 28.1 pg (27-33); Mean Corpuscular Hgb Conc 32.7 g/dL (31-36); Mean Platelet Volume 8.2 fL (7.5-11.2); Nucleated Red Blood Cells % 0.1 %/100WBC (0.0-0.8); Platelet Count 195 10^3/uL (150-450); Red Blood Count 4.12 10^6/uL (4.06-5.63); Red Cell Distribution Width 16.2 % (12-17); White Blood Count 8.4 10^3/uL (3.6-10.2)
[2023-05-30 07:03] LABS: Creatinine, Serum 9.27 mg/dL (0.67-1.17); Potassium 3.9 mmol/L (3.5-5.0); eGFR CKD-EPI 5.7 (>60)
[2023-05-30] MEDS: Aspirin EC 81 mg TAB.EC (enteric coated) PO SCH (08:20)
[2023-05-30] MEDS: SUCROFERRIC OXYHYDROXIDE 500 MG PO SCH ×3 (08:21→18:23)
[2023-05-30] MEDS: Lanthanum 500 mg CHEW TAB PO SCH ×3 (08:21→18:16)
[2023-05-30] MEDS ORDERED: guaiFENesin 100 mg/5 ml LIQ unit dose cup PO PRN (11:24)
[2023-05-30] MEDS: Heparin 1,000 UNIT/ML 10 ml (10,000 UNITS) CATHLAB/DIALYSIS DIALYSIS PRN ×2 (13:30→15:08)
[2023-05-30] MEDS: Albumin Human 25% 25 GM/100 ML BTL IV PRN (16:37)
[2023-05-31] MEDS: Nystatin TOP POWDER 15 GM BTL TOPICAL SCH ×4 (02:02→22:07)
[2023-05-31 06:12] LABS: ABS Eosinophils 0.1 10^3/uL (0.0-0.5); ABS Lymphocytes 1.3 10^3/uL (1.0-4.8); ABS Monocytes 0.8 10^3/uL (0.0-1.1); ABS Neutrophils 5.3 10^3/uL (1.5-7.6); Eosinophil % 1.4 %; Hematocrit 34.7 % (38-53); Hemoglobin 11.4 g/dL (13.2-16.3); Lymphocyte % 17.6 %; Mean Corpuscular Hemoglobin 28.3 pg (27-33); Mean Corpuscular Volume 85.7 fL (80-97); Mean Platelet Volume 8.8 fL (7.5-11.2); Nucleated Red Blood Cells % 0.1 %/100WBC (0.0-0.8); Platelet Count 201 10^3/uL (150-450); Red Blood Count 4.04 10^6/uL (4.06-5.63); Red Cell Distribution Width 16.2 % (12-17); White Blood Count 7.5 10^3/uL (3.6-10.2)
[2023-05-31 06:14] LABS: Calcium 9.9 mg/dL (8.6-10.3); Creatinine, Serum 6.65 mg/dL (0.67-1.17); Potassium 4.3 mmol/L (3.5-5.0); eGFR CKD-EPI 8.4 (>60)
[2023-05-31] MEDS: Heparin 1,000 UNIT/ML 10 ml (10,000 UNITS) CATHLAB/DIALYSIS DIALYSIS PRN ×4 (09:40→12:38)
[2023-05-31] MEDS: Albumin Human 25% 25 GM/100 ML BTL IV PRN (13:07)
[2023-05-31] MEDS: Lanthanum 500 mg CHEW TAB PO SCH ×3 (15:03→16:59)
[2023-05-31] MEDS: SUCROFERRIC OXYHYDROXIDE 500 MG PO SCH ×2 (15:04→17:04)
[2023-05-31] MEDS: Aspirin EC 81 mg TAB.EC (enteric coated) PO SCH (15:05)
[2023-06-01] MEDS: Aspirin EC 81 mg TAB.EC (enteric coated) PO SCH (08:28)
[2023-06-01] MEDS: Lanthanum 500 mg CHEW TAB PO SCH ×3 (08:29→18:02)
[2023-06-01] MEDS: Nystatin TOP POWDER 15 GM BTL TOPICAL SCH ×3 (08:30→20:34)
[2023-06-01] MEDS: SUCROFERRIC OXYHYDROXIDE 500 MG PO SCH ×3 (08:31→18:02)
[2023-06-01] MEDS: Heparin 1,000 UNIT/ML 10 ml (10,000 UNITS) CATHLAB/DIALYSIS DIALYSIS PRN ×3 (13:55→15:55)
[2023-06-02] MEDS: Lanthanum 500 mg CHEW TAB PO SCH ×3 (08:07→16:59)
[2023-06-02] MEDS: Aspirin EC 81 mg TAB.EC (enteric coated) PO SCH (08:07)
[2023-06-02] MEDS: SUCROFERRIC OXYHYDROXIDE 500 MG PO SCH ×3 (08:08→17:00)
[2023-06-02] MEDS: Nystatin TOP POWDER 15 GM BTL TOPICAL SCH ×3 (08:10→20:53)
[2023-06-02 11:01] LABS: ABS Basophils 0.1 10^3/uL (0.0-0.1); ABS Lymphocytes 0.8 10^3/uL (1.0-4.8); ABS Neutrophils 11.4 10^3/uL (1.5-7.6); ABS Nucleated RBC 0.01 10^3/ul; Eosinophil % 0.1 %; Hematocrit 38.2 % (38-53); Hemoglobin 12.7 g/dL (13.2-16.3); Lymphocyte % 6.4 %; Mean Corpuscular Hemoglobin 28.3 pg (27-33); Mean Corpuscular Hgb Conc 33.3 g/dL (31-36); Mean Corpuscular Volume 84.9 fL (80-97); Mean Platelet Volume 8.3 fL (7.5-11.2); Nucleated Red Blood Cells % 0.1 %/100WBC (0.0-0.8); Platelet Count 267 10^3/uL (150-450); Red Cell Distribution Width 16.3 % (12-17); White Blood Count 13.3 10^3/uL (3.6-10.2)
[2023-06-02 11:17] LABS: Creatinine, Serum 6.22 mg/dL (0.67-1.17); eGFR CKD-EPI 9.1 (>60)
[2023-06-02 17:00] LABS: PCO2 Arterial 36 mmHg (35-45); PO2 Arterial 84 mmHg (80-100)
[2023-06-02] MEDS: Hemorrhoidal OINT 1 TUBE PR PRN (21:45)
[2023-06-03] MEDS: Lanthanum 500 mg CHEW TAB PO SCH ×3 (08:47→17:11)
[2023-06-03] MEDS: Aspirin EC 81 mg TAB.EC (enteric coated) PO SCH (08:49)
[2023-06-03] MEDS: SUCROFERRIC OXYHYDROXIDE 500 MG PO SCH ×3 (08:49→18:18)
[2023-06-03] MEDS: Nystatin TOP POWDER 15 GM BTL TOPICAL SCH ×3 (08:50→22:12)
[2023-06-03 12:36] LABS: ABS Lymphocytes 0.9 10^3/uL (1.0-4.8); ABS Monocytes 0.4 10^3/uL (0.0-1.1); ABS Neutrophils 11.9 10^3/uL (1.5-7.6); Eosinophil % 0.1 %; Hematocrit 38.1 % (38-53); Hemoglobin 12.3 g/dL (13.2-16.3); Lymphocyte % 6.5 %; Mean Corpuscular Hemoglobin 27.5 pg (27-33); Mean Corpuscular Hgb Conc 32.2 g/dL (31-36); Mean Corpuscular Volume 85.4 fL (80-97); Mean Platelet Volume 8.4 fL (7.5-11.2); Platelet Count 263 10^3/uL (150-450); Red Blood Count 4.46 10^6/uL (4.06-5.63); Red Cell Distribution Width 16.6 % (12-17); White Blood Count 13.2 10^3/uL (3.6-10.2)
[2023-06-03 13:15] LABS: Calcium 11.1 mg/dL (8.6-10.3); Creatinine, Serum 8.54 mg/dL (0.67-1.17); Potassium 5.9 mmol/L (3.5-5.0); eGFR CKD-EPI 6.3 (>60)
[2023-06-03] MEDS: Hemorrhoidal OINT 1 TUBE PR PRN (18:36)
[2023-06-03] MEDS ORDERED: fentaNYL 100 mcg/2 ml 50 MCG/ML VIAL IV SLOW PU ONE (21:12)
[2023-06-03] MEDS: Insulin GLARGINE 100 un/ml 10 ml VIAL SUBCUT SCH (22:10)
[2023-06-04 05:53] LABS: ABS Lymphocytes 1.2 10^3/uL (1.0-4.8); ABS Monocytes 1.1 10^3/uL (0.0-1.1); ABS Neutrophils 11.6 10^3/uL (1.5-7.6); Eosinophil % 0.1 %; Hematocrit 36.2 % (38-53); Hemoglobin 11.9 g/dL (13.2-16.3); Lymphocyte % 8.6 %; Mean Corpuscular Hemoglobin 27.8 pg (27-33); Mean Corpuscular Hgb Conc 32.8 g/dL (31-36); Mean Corpuscular Volume 84.6 fL (80-97); Mean Platelet Volume 8.5 fL (7.5-11.2); Platelet Count 268 10^3/uL (150-450); Red Blood Count 4.28 10^6/uL (4.06-5.63); Red Cell Distribution Width 16.2 % (12-17)
[2023-06-04 06:26] LABS: Calcium 10.8 mg/dL (8.6-10.3); Creatinine, Serum 10.04 mg/dL (0.67-1.17); Magnesium 2.4 mg/dL (1.9-2.7); Phosphorus 3.5 mg/dL (2.5-5.0); Potassium 6.8 mmol/L (3.5-5.0); eGFR CKD-EPI 5.1 (>60)
[2023-06-04] MEDS ORDERED: SODIUM ZIRCONIUM CYCLOSILICATE 10 GM PACKET PO ONE (06:27)
[2023-06-04] MEDS: Heparin 1,000 UNIT/ML 10 ml (10,000 UNITS) CATHLAB/DIALYSIS DIALYSIS PRN ×3 (07:15→09:15)
[2023-06-04] MEDS: SUCROFERRIC OXYHYDROXIDE 500 MG PO SCH (11:15)
[2023-06-04] MEDS: Nystatin TOP POWDER 15 GM BTL TOPICAL SCH ×3 (12:09→20:22)
[2023-06-04] MEDS: Lanthanum 500 mg CHEW TAB PO SCH ×3 (12:10→17:23)
[2023-06-04] MEDS: Aspirin EC 81 mg TAB.EC (enteric coated) PO SCH (12:11)
[2023-06-04 14:17] LABS: Creatinine, Serum 5.93 mg/dL (0.67-1.17); Potassium 4.5 mmol/L (3.5-5.0); eGFR CKD-EPI 9.7 (>60)
[2023-06-04] MEDS ORDERED: Sulfur Hexaflouride MICROSPHR 25 MG VIAL ONE (14:17)
[2023-06-04] MEDS: Insulin GLARGINE 100 un/ml 10 ml VIAL SUBCUT SCH (20:20)
[2023-06-05 08:14] VITALS: BP 112/75
[2023-06-05] MEDS: Aspirin EC 81 mg TAB.EC (enteric coated) PO SCH (08:15)
[2023-06-05] MEDS: Lanthanum 500 mg CHEW TAB PO SCH (08:15)
[2023-06-05] MEDS: Nystatin TOP POWDER 15 GM BTL TOPICAL SCH (08:21)
== END 2023-06-05 10:14 | disposition home or self-care (01) | DRG 291 ==
LOC: EDHOLD 02:15 → ED 02:15 → MED 12:29 → SUATTDRO 05-30 09:17
PROVIDERS: ADMIT Hospitalist; ATTEND Internal Medicine

== ENCOUNTER 2023-07-31 14:20 | Inpatient (IN) ==
[2023-07-31 15:27] LABS: ABS Eosinophils 0.1 10^3/uL (0.0-0.5); ABS Lymphocytes 0.7 10^3/uL (1.0-4.8); ABS Monocytes 0.6 10^3/uL (0.0-1.1); ABS Neutrophils 5.2 10^3/uL (1.5-7.6); ABS Nucleated RBC 0.01 10^3/ul; Eosinophil % 1.1 %; Hematocrit 35.4 % (38-53); Lymphocyte % 10.5 %; Mean Corpuscular Hemoglobin 28.5 pg (27-33); Mean Corpuscular Hgb Conc 33.8 g/dL (31-36); Mean Corpuscular Volume 84.2 fL (80-97); Mean Platelet Volume 8.3 fL (7.5-11.2); Nucleated Red Blood Cells % 0.2 %/100WBC (0.0-0.8); Platelet Count 220 10^3/uL (150-450); Red Blood Count 4.21 10^6/uL (4.06-5.63); Red Cell Distribution Width 16.7 % (12-17); White Blood Count 6.6 10^3/uL (3.6-10.2)
[2023-07-31 15:38] LABS: INR 1.13 (0.83-1.13)
[2023-07-31 15:59] LABS: Albumin/Globulin Ratio 1.5 (1-3); Calcium 9.5 mg/dL (8.6-10.3); Creatinine, Serum 4.5 mg/dL (0.67-1.17); Globulin 2.7 g/dL (2-4); Potassium 3.2 mmol/L (3.5-5.0); Total Bilirubin 0.6 mg/dL (0.2-1.0); Total Protein 6.7 g/dL (6.4-8.9); eGFR CKD-EPI 13.5 (>60)
[2023-07-31 16:54] LABS: High Sensitivity Troponin 1 Hr 138 pg/mL (<20)
[2023-07-31 17:14] LABS: Magnesium 2.2 mg/dL (1.9-2.7)
[2023-07-31 17:28] LABS: TSH Ultra Thyroid Stim Horm 0.87 mcIU/mL (0.34-5.60)
[2023-07-31] MEDS: Potassium Chlor 20 meq TAB.ER PO ONE ×2 (18:07→18:18)
[2023-07-31] MEDS: Ondansetron 4 mg VIAL 2 MG/ML 2 ml VIAL IV ONE (18:19)
[2023-07-31 20:44] LABS: ABS Basophils 0.1 10^3/uL (0.0-0.1); ABS Eosinophils 0.1 10^3/uL (0.0-0.5); ABS Lymphocytes 0.8 10^3/uL (1.0-4.8); ABS Monocytes 0.7 10^3/uL (0.0-1.1); ABS Neutrophils 4.5 10^3/uL (1.5-7.6); Eosinophil % 1.3 %; Hematocrit 34.8 % (38-53); Hemoglobin 11.4 g/dL (13.2-16.3); Lymphocyte % 13.3 %; Mean Corpuscular Hemoglobin 27.7 pg (27-33); Mean Corpuscular Hgb Conc 32.8 g/dL (31-36); Mean Corpuscular Volume 84.5 fL (80-97); Mean Platelet Volume 7.9 fL (7.5-11.2); Platelet Count 200 10^3/uL (150-450); Red Blood Count 4.12 10^6/uL (4.06-5.63); Red Cell Distribution Width 16.2 % (12-17); White Blood Count 6.1 10^3/uL (3.6-10.2)
[2023-07-31 21:25] LABS: Creatinine, Serum 5.41 mg/dL (0.67-1.17); eGFR CKD-EPI 10.8 (>60)
[2023-07-31] MEDS: Heparin 5000 UNITS/ML 1 mL VIAL IV SCH (22:08)
[2023-07-31] MEDS: Heparin DRIP 25,000 UNITS BAG 25,000 UNITS/250 ML BAG IV SCH (22:12)
[2023-08-01 06:21] LABS: ABS Basophils 0.1 10^3/uL (0.0-0.1); ABS Eosinophils 0.2 10^3/uL (0.0-0.5); ABS Lymphocytes 1.3 10^3/uL (1.0-4.8); ABS Monocytes 0.7 10^3/uL (0.0-1.1); ABS Neutrophils 4.3 10^3/uL (1.5-7.6); Eosinophil % 2.3 %; Hemoglobin 11.2 g/dL (13.2-16.3); Lymphocyte % 19.8 %; Mean Corpuscular Hemoglobin 27.9 pg (27-33); Mean Corpuscular Hgb Conc 33.1 g/dL (31-36); Mean Corpuscular Volume 84.4 fL (80-97); Mean Platelet Volume 8.3 fL (7.5-11.2); Nucleated Red Blood Cells % 0.1 %/100WBC (0.0-0.8); Platelet Count 195 10^3/uL (150-450); Red Blood Count 4.03 10^6/uL (4.06-5.63); Red Cell Distribution Width 15.8 % (12-17); White Blood Count 6.6 10^3/uL (3.6-10.2)
[2023-08-01 07:52] LABS: Calcium 9.9 mg/dL (8.6-10.3); Creatinine, Serum 6.29 mg/dL (0.67-1.17); Magnesium 2.3 mg/dL (1.9-2.7); Potassium 3.9 mmol/L (3.5-5.0)
[2023-08-01] MEDS: Aspirin EC 81 mg TAB.EC (enteric coated) PO SCH (09:53)
[2023-08-01 10:26] LABS: INR 1.1 (0.83-1.13)
[2023-08-01 12:03] LABS: Hepatitis B Surface Antigen Nonreactive (Nonreactive)
[2023-08-01 12:20] LABS: Hepatitis B Surface Ab Immune (Immune)
[2023-08-01 14:55] LABS: High Sensitivity Troponin 1 Hr 141 pg/mL (<20)
[2023-08-01] MEDS ORDERED: Sulfur Hexaflouride MICROSPHR 25 MG VIAL ONE (15:23)
[2023-08-01] MEDS ORDERED: Albumin Human 25% 25 GM/100 ML BTL IV PRN (15:59)
[2023-08-01] MEDS ORDERED: NS 0.9% 1000 ml BAG 100 ML IV PRN (15:59)
[2023-08-01] MEDS ORDERED: NS 0.9% 1000 ml BAG 200 ML IV PRN (15:59)
[2023-08-01] MEDS: Heparin 5000 UNITS/ML 1 mL VIAL SUBCUT SCH (17:21)
[2023-08-01] MEDS ORDERED: Dextrose 50% Syringe 50 ml 25 GM/50 ML SYRINGE IV PUSH PRN (18:37)
[2023-08-02] MEDS: Calcium Carb (TUMS) 500 mg CHEW TAB PO ONE (00:48)
[2023-08-02] MEDS: Heparin 1,000 UNIT/ML 10 ml (10,000 UNITS) CATHLAB/DIALYSIS DIALYSIS PRN (07:54)
[2023-08-02 08:13] LABS: Creatinine, Serum 8.11 mg/dL (0.67-1.17); eGFR CKD-EPI 6.7 (>60)
[2023-08-03] MEDS ORDERED: Aminophylline 25 MG/ML VIAL ONE (07:26)
[2023-08-03] MEDS ORDERED: Regadenoson 0.4 MG/5 ML SYRINGE ONE (07:26)
[2023-08-03] MEDS ORDERED: Ondansetron 4 mg VIAL 2 MG/ML 2 ml VIAL ONE (08:50)
[2023-08-03] MEDS: Isosorbide Mononit ER 30mg TAB PO SCH (12:38)
[2023-08-03] MEDS: Polyethylene Glycol 3350 17 GM PACKET PO SCH (21:38)
[2023-08-03] MEDS: Senna TAB 8.6 mg TAB PO PRN (21:38)
[2023-08-04] MEDS: HYDROmorphone 0.5 MG/0.5 ML SYRINGE IV SLOW PU ONE (01:50)
[2023-08-04 06:24] LABS: ABS Basophils 0.1 10^3/uL (0.0-0.1); ABS Eosinophils 0.2 10^3/uL (0.0-0.5); ABS Lymphocytes 1.2 10^3/uL (1.0-4.8); ABS Monocytes 0.8 10^3/uL (0.0-1.1); ABS Neutrophils 6.1 10^3/uL (1.5-7.6); ABS Nucleated RBC 0.01 10^3/ul; Hematocrit 32.2 % (38-53); Hemoglobin 10.6 g/dL (13.2-16.3); Lymphocyte % 14.4 %; Mean Corpuscular Hemoglobin 27.8 pg (27-33); Mean Corpuscular Volume 84.1 fL (80-97); Mean Platelet Volume 8.4 fL (7.5-11.2); Nucleated Red Blood Cells % 0.1 %/100WBC (0.0-0.8); Platelet Count 186 10^3/uL (150-450); Red Blood Count 3.83 10^6/uL (4.06-5.63); White Blood Count 8.3 10^3/uL (3.6-10.2)
[2023-08-04 06:42] LABS: Calcium 9.4 mg/dL (8.6-10.3); Creatinine, Serum 7.78 mg/dL (0.67-1.17); Potassium 5.1 mmol/L (3.5-5.0)
[2023-08-05] MEDS: Calcium Carb (TUMS) 500 mg CHEW TAB PO PRN (00:24)
[2023-08-05 18:56] LABS: Magnesium 2.2 mg/dL (1.9-2.7); Phosphorus 7.9 mg/dL (2.5-5.0)
[2023-08-06 06:40] LABS: ABS Basophils 0.1 10^3/uL (0.0-0.1); ABS Eosinophils 0.2 10^3/uL (0.0-0.5); ABS Lymphocytes 1.2 10^3/uL (1.0-4.8); ABS Monocytes 0.8 10^3/uL (0.0-1.1); ABS Neutrophils 6.2 10^3/uL (1.5-7.6); ABS Nucleated RBC 0.01 10^3/ul; Eosinophil % 1.9 %; Hematocrit 29.9 % (38-53); Hemoglobin 10.1 g/dL (13.2-16.3); Lymphocyte % 14.4 %; Mean Corpuscular Hgb Conc 33.7 g/dL (31-36); Mean Platelet Volume 8.7 fL (7.5-11.2); Nucleated Red Blood Cells % 0.1 %/100WBC (0.0-0.8); Platelet Count 189 10^3/uL (150-450); Red Cell Distribution Width 16.1 % (12-17); White Blood Count 8.5 10^3/uL (3.6-10.2)
[2023-08-06 07:19] LABS: Calcium 9.6 mg/dL (8.6-10.3); Creatinine, Serum 8.02 mg/dL (0.67-1.17); Potassium 5.4 mmol/L (3.5-5.0); eGFR CKD-EPI 6.7 (>60)
[2023-08-06] MEDS: Isosorbide Mononit ER 30mg TAB PO ONE (22:54)
[2023-08-07 05:04] LABS: ABS Eosinophils 0.1 10^3/uL (0.0-0.5); ABS Lymphocytes 1.2 10^3/uL (1.0-4.8); ABS Monocytes 0.8 10^3/uL (0.0-1.1); ABS Neutrophils 5.7 10^3/uL (1.5-7.6); ABS Nucleated RBC 0.02 10^3/ul; Eosinophil % 1.7 %; Hematocrit 32.3 % (38-53); Hemoglobin 10.6 g/dL (13.2-16.3); Lymphocyte % 14.9 %; Mean Corpuscular Hemoglobin 27.5 pg (27-33); Mean Corpuscular Hgb Conc 32.7 g/dL (31-36); Mean Platelet Volume 8.7 fL (7.5-11.2); Nucleated Red Blood Cells % 0.2 %/100WBC (0.0-0.8); Platelet Count 187 10^3/uL (150-450); Red Blood Count 3.85 10^6/uL (4.06-5.63); Red Cell Distribution Width 16.2 % (12-17); White Blood Count 7.8 10^3/uL (3.6-10.2)
[2023-08-07 05:29] LABS: Calcium 9.4 mg/dL (8.6-10.3); Creatinine, Serum 6.01 mg/dL (0.67-1.17); Potassium 4.6 mmol/L (3.5-5.0); eGFR CKD-EPI 9.5 (>60)
[2023-08-07] MEDS ORDERED: BENZOCAINE/MENTHOL (ORAJEL)20% 1 APPLIC TOP.GEL TOPICAL PRN (18:59)
[2023-08-07] MEDS: BENZOCAINE/MENTHOL (ORAJEL)20% 1 APPLIC TOP.GEL TOPICAL PRN (21:07)
[2023-08-08 08:10] LABS: ABS Eosinophils 0.1 10^3/uL (0.0-0.5); ABS Lymphocytes 1.4 10^3/uL (1.0-4.8); ABS Neutrophils 6.8 10^3/uL (1.5-7.6); Eosinophil % 1.4 %; Hematocrit 31.8 % (38-53); Hemoglobin 10.4 g/dL (13.2-16.3); Lymphocyte % 14.9 %; Mean Corpuscular Hemoglobin 27.8 pg (27-33); Mean Corpuscular Hgb Conc 32.6 g/dL (31-36); Mean Corpuscular Volume 85.2 fL (80-97); Mean Platelet Volume 8.4 fL (7.5-11.2); Platelet Count 188 10^3/uL (150-450); Red Blood Count 3.74 10^6/uL (4.06-5.63); Red Cell Distribution Width 15.8 % (12-17); White Blood Count 9.4 10^3/uL (3.6-10.2)
[2023-08-08 08:54] LABS: Calcium 9.4 mg/dL (8.6-10.3); Creatinine, Serum 8.24 mg/dL (0.67-1.17); Magnesium 2.1 mg/dL (1.9-2.7); Potassium 6.1 mmol/L (3.5-5.0); eGFR CKD-EPI 6.5 (>60)
[2023-08-09 06:15] LABS: ABS Eosinophils 0.1 10^3/uL (0.0-0.5); ABS Lymphocytes 1.2 10^3/uL (1.0-4.8); ABS Monocytes 0.9 10^3/uL (0.0-1.1); ABS Neutrophils 5.6 10^3/uL (1.5-7.6); Eosinophil % 1.4 %; Hematocrit 30.1 % (38-53); Lymphocyte % 14.9 %; Mean Corpuscular Hemoglobin 27.9 pg (27-33); Mean Corpuscular Hgb Conc 33.2 g/dL (31-36); Mean Corpuscular Volume 83.9 fL (80-97); Mean Platelet Volume 8.5 fL (7.5-11.2); Nucleated Red Blood Cells % 0.1 %/100WBC (0.0-0.8); Platelet Count 175 10^3/uL (150-450); Red Blood Count 3.58 10^6/uL (4.06-5.63); Red Cell Distribution Width 16.2 % (12-17); White Blood Count 7.9 10^3/uL (3.6-10.2)
[2023-08-09 06:48] LABS: Calcium 9.3 mg/dL (8.6-10.3); Creatinine, Serum 6.26 mg/dL (0.67-1.17); Phosphorus 7.6 mg/dL (2.5-5.0); Potassium 5.1 mmol/L (3.5-5.0); eGFR CKD-EPI 9.1 (>60)
[2023-08-10] MEDS: Aspirin EC 81 mg TAB.EC (enteric coated) PO SCH (15:08)
[2023-08-10] MEDS: Isosorbide Mononit ER 30mg TAB PO SCH (15:08)
[2023-08-11] MEDS: hydrALAZINE 20 mg/ml 1 ML Vial IV IV SLOW PU ONE (23:44)
[2023-08-12] MEDS: hydrALAZINE 20 mg/ml 1 ML Vial IV IV SLOW PU ONE ×2 (00:54→22:40)
[2023-08-12 07:01] LABS: ABS Basophils 0.1 10^3/uL (0.0-0.1); ABS Eosinophils 0.1 10^3/uL (0.0-0.5); ABS Monocytes 0.9 10^3/uL (0.0-1.1); ABS Neutrophils 8.1 10^3/uL (1.5-7.6); ABS Nucleated RBC 0.01 10^3/ul; Eosinophil % 0.9 %; Hematocrit 31.5 % (38-53); Hemoglobin 10.5 g/dL (13.2-16.3); Lymphocyte % 9.4 %; Mean Corpuscular Hemoglobin 27.7 pg (27-33); Mean Corpuscular Hgb Conc 33.2 g/dL (31-36); Mean Corpuscular Volume 83.4 fL (80-97); Mean Platelet Volume 8.5 fL (7.5-11.2); Nucleated Red Blood Cells % 0.1 %/100WBC (0.0-0.8); Platelet Count 168 10^3/uL (150-450); Red Blood Count 3.78 10^6/uL (4.06-5.63); Red Cell Distribution Width 16.3 % (12-17); White Blood Count 10.1 10^3/uL (3.6-10.2)
[2023-08-12 07:22] LABS: Calcium 9.5 mg/dL (8.6-10.3); Creatinine, Serum 7.74 mg/dL (0.67-1.17); Phosphorus 7.8 mg/dL (2.5-5.0); Potassium 5.4 mmol/L (3.5-5.0)
[2023-08-12] MEDS ORDERED: Albuterol HFA INHALER 8 gm MDI INH PRN (08:23)
[2023-08-12] MEDS: Mometasone/Formoter 200/5 MDI INH SCH (08:37)
[2023-08-12 14:21] LABS: Calcium 9.6 mg/dL (8.6-10.3); Creatinine, Serum 8.38 mg/dL (0.67-1.17); Potassium 5.5 mmol/L (3.5-5.0); eGFR CKD-EPI 6.4 (>60)
[2023-08-12] MEDS: SODIUM ZIRCONIUM CYCLOSILICATE 10 GM PACKET PO ONE (17:05)
[2023-08-12] MEDS: Insulin GLARGINE 100 un/ml 10 ml VIAL SUBCUT SCH (21:25)
[2023-08-13 10:15] LABS: Calcium 9.6 mg/dL (8.6-10.3); Creatinine, Serum 9.23 mg/dL (0.67-1.17); Potassium 6.2 mmol/L (3.5-5.0); eGFR CKD-EPI 5.7 (>60)
[2023-08-13 12:33] LABS: TB1 Ag minus Nil Result 0.03 IU/mL; TB2 Ag minus Nil Result 0.04 IU/mL
[2023-08-13 12:36] LABS: QuantiferonTb Gold Plus Result Negative (Negative)
[2023-08-13] MEDS: Insulin GLARGINE 100 un/ml 10 ml VIAL SUBCUT SCH (19:24)
[2023-08-13] MEDS: Polyethylene Glycol 3350 17 GM PACKET PO PRN (19:38)
[2023-08-14 06:29] LABS: PCO2 Arterial 37 mmHg (35-45); PO2 Arterial 72 mmHg (80-100)
[2023-08-14 06:58] LABS: Calcium 9.3 mg/dL (8.6-10.3); Creatinine, Serum 6.21 mg/dL (0.67-1.17); Phosphorus 6.8 mg/dL (2.5-5.0); Potassium 4.7 mmol/L (3.5-5.0); eGFR CKD-EPI 9.2 (>60)
[2023-08-14 07:01] LABS: ABS Eosinophils 0.1 10^3/uL (0.0-0.5); ABS Lymphocytes 0.7 10^3/uL (1.0-4.8); ABS Monocytes 0.8 10^3/uL (0.0-1.1); ABS Neutrophils 6.5 10^3/uL (1.5-7.6); Eosinophil % 0.7 %; Hemoglobin 9.7 g/dL (13.2-16.3); Lymphocyte % 8.8 %; Mean Corpuscular Hemoglobin 28.1 pg (27-33); Mean Corpuscular Hgb Conc 33.6 g/dL (31-36); Mean Corpuscular Volume 83.6 fL (80-97); Mean Platelet Volume 8.5 fL (7.5-11.2); Platelet Count 162 10^3/uL (150-450); Red Blood Count 3.47 10^6/uL (4.06-5.63); Red Cell Distribution Width 16.5 % (12-17); White Blood Count 8.1 10^3/uL (3.6-10.2)
[2023-08-15] MEDS: Isosorbide Mononit ER 30mg TAB PO SCH (08:12)
[2023-08-15 09:02] LABS: Calcium 9.3 mg/dL (8.6-10.3); Creatinine, Serum 8.33 mg/dL (0.67-1.17); Potassium 5.2 mmol/L (3.5-5.0); eGFR CKD-EPI 6.4 (>60)
[2023-08-16 06:34] LABS: Calcium 9.5 mg/dL (8.6-10.3); Creatinine, Serum 5.77 mg/dL (0.67-1.17); Potassium 4.6 mmol/L (3.5-5.0)
[2023-08-16 08:44] LABS: Rapid COVID-19 Molecular Undetected (Undetected)
[2023-08-16 11:17] VITALS: BP 155/85
== END 2023-08-16 12:45 | DRG 291 ==
LOC: ED 14:20 → SUATTDRO 18:06 → EDHOLD 18:06 → MEDTELE 19:48
PROVIDERS: ADMIT Internal Medicine; ATTEND Internal Medicine